=== PATIENT | female | born 2000 | race Caucasian/White ===

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

== ENCOUNTER 2019-04-17 00:34 | Emergency (ER) | payer OTHER ==
[2019-04-17 01:02] VITALS: O2SAT 99
--- NOTE | 2019-04-17 01:16 | ERPHSYRPT ---
- History of Present Illness Time Seen by Provider: 04/17/19 01:14 Exam Limitations: no limitations Patient Subjective Stated Complaint: pt states, "I woke up at 9pm tonight with rt sided abd pain and I can't get away from it". Triage Nursing Assessment: pt ambulated per self to rm 4 in ER. pt states, "i can't get over this". Rehana been having abd pain since 2100 tonight and it hurts so bad". Lungs clear, heart tones reg, abd soft with pain to rt lower side and up her ribcage. Lungs clear, heart tones reg, abd soft with active bs X4 quad, nontender. Allergies/Adverse Reactions: codeine Allergy (Verified 01/13/18 21:15) Home Medications: Cyclobenzaprine HCl 10 mg [Cyclobenzaprine 10 MG] 10 mg PO DAILY 04/17/19 [History] Venlafaxine HCl 37.5 mg [Effexor 37.5 mg] 37.5 mg pe PO DAILY 04/17/19 [ History] Hx Tetanus, Diphtheria Vaccination/Date Given: Yes Hx Influenza Vaccination/Date Given: No Hx Pneumococcal Vaccination/Date Given: No Immunizations Up to Date: Yes - Review of Systems Constitutional: No Symptoms Respiratory: No Symptoms Cardiac: No Symptoms Abdominal/Gastrointestinal: Abdominal Pain, Vomiting (1X on Wednesday night) Genitourinary Symptoms: No Symptoms All Other Systems: Reviewed and Negative - Past Medical History Pertinent Past Medical History: Yes Neurological History: No Pertinent History ENT History: No Pertinent History Cardiac History: No Pertinent History Respiratory History: Asthma Endocrine Medical History: No Pertinent History Musculoskeletal History: No Pertinent History GI Medical History: Gallbladder Disease History: No Pertinent History Psycho-Social History: No Pertinent History Female Reproductive Disorders: No Pertinent History Other Medical History: Notes history of popping her neck. - Past Surgical History Past Surgical History: Yes Neuro Surgical History: No Pertinent History Cardiac: No Pertinent History Respiratory: No Pertinent History Gastrointestinal: Cholecystectomy Genitourinary: No Pertinent History Musculoskeletal: No Pertinent History Female Surgical History: No Pertinent History - Social History Smoking Status: Current every day smoker How long have you smoked: 6 yrs Exposure to second hand smoke: Yes Drug Use: none Patient Lives Alone: No - Female History Hx Last Menstrual Period: Apr 05 Hx Now: No - Nursing Vital Signs Nursing Vital Signs: Initial Vital Signs Temperature 98.1 F 04/17/19 01:00 Pulse Rate 89 04/17/19 01:00 Respiratory Rate 17 04/17/19 01:00 Blood Pressure 134/91 04/17/19 01:00 O2 Sat by Pulse Oximetry 99 04/17/19 01:00 Pain Scale Pain Intensity 1 - Physical Exam General Appearance: no apparent distress Ears, Nose, Throat Exam: normal ENT inspection, pharynx normal Neck Exam: normal inspection, non-tender, supple Respiratory Exam: normal breath sounds, chest tenderness Cardiovascular Exam: regular rate/rhythm, normal heart sounds Gastrointestinal/Abdomen Exam: soft, normal bowel sounds, tenderness (RLQ to deep palpation), guarding Extremity Exam: normal inspection, normal range of motion Neurologic Exam: alert, oriented x 3, cooperative Skin Exam: normal color, warm, dry SpO2 Interpretation: normal SpO2: 99 O2 Delivery: Room Air - Course Nursing assessment & vital signs reviewed: Yes - CT Exams Abdomen/Pelvis CT Interpretation: Negative, Other (Normal appendix) Ordered Tests: Active Orders 24 hr Category Date Time Status ABDOMEN AND PELVIS W/0 CONTRAS [CT] Stat Exams 04/17/19 01:42 Taken CBC W DIFF Stat Lab 04/17/19 01:30 Completed CMP Stat Lab 04/17/19 01:30 Completed HCG,QUALITATIVE URINE Stat Lab 04/17/19 01:30 Completed UA W/RFX UR CULTURE Stat Lab 04/17/19 01:30 Completed Lab/Rad Data: Laboratory Result Diagrams 04/17/19 01:30 04/17/19 01:30 Laboratory Results 04/17/19 04/17/19 04/17/19 Range/Units 01:30 01:30 01:30 WBC (4.0-10.5) K/mm3 RBC (4.1-5.4) M/mm3 Hgb (12.0-16.0) gm/dl Hct (35-47) % MCV (78-100) fl MCH (26-32) pg MCHC (32-36) g/dl RDW (11.5-14.0) % Plt Count (150-450) K/mm3 MPV (6-9.5) fl Gran % (36.0-66.0) % Eos # (Auto) (0-0.5) Absolute Lymphs (auto) (1.0-4.6) Absolute Monos (auto) (0.0-1.3) Lymphocytes % (24.0-44.0) % Monocytes % (0.0-12.0) % Eosinophils % (0.00-5.0) % Basophils % (0.0-0.4) % Absolute Granulocytes (1.4-6.9) Basophils # (0-0.4) Sodium 140 (137-145) mmol/L Potassium 4.1 (3.5-5.1) mmol/L Chloride 105 (98-107) mmol/L Carbon Dioxide 24 (22-30) mmol/L Anion Gap 15.3 H (5-15) MEQ/L BUN 19 H (7-17) mg/dL Creatinine 0.81 (0.52-1.04) mg/dL Estimated GFR > 60.0 ML/MIN Glucose 91 (74-106) mg/dL Calcium 9.5 (8.4-10.2) mg/dL Total Bilirubin 0.70 (0.2-1.3) mg/dL AST 15 (14-36) U/L ALT 14 (0-35) U/L Alkaline Phosphatase 52 (38-126) U/L Serum Total Protein 7.3 (6.3-8.2) g/dL Albumin 4.3 (3.5-5.0) g/dL Urine Color YELLOW (YELLOW) Urine Appearance CLEAR (CLEAR) Urine pH 5.0 (5-6) Ur Specific [place] 1.018 (1.005-1.025) Urine Protein NEGATIVE (Negative) Urine Ketones NEGATIVE (NEGATIVE) Urine Blood LARGE (0-5) [place]/ul Urine Nitrite NEGATIVE (NEGATIVE) Urine Bilirubin NEGATIVE (NEGATIVE) Urine Urobilinogen NEGATIVE (0-1) mg/dL Ur Leukocyte Esterase NEGATIVE (NEGATIVE) Urine WBC (Auto) 0-2 (0-5) /HPF Urine RBC (Auto) 0-2 (0-2) /HPF U Epithel Cells (Auto) NONE (FEW) /HPF Urine Bacteria (Auto) NONE SEEN (NEGATIVE) /HPF Urine Mucus (Auto) SLIGHT (NEGATIVE) /HPF Urine Culture Reflexed NO (NO) Urine Glucose NEGATIVE (NEGATIVE) mg/dL Urine HCG, Qual NEGATIVE (Negative) 04/17/19 Range/Units 01:30 WBC 18.4 H (4.0-10.5) K/mm3 RBC 5.09 (4.1-5.4) M/mm3 Hgb 15.4 (12.0-16.0) gm/dl Hct 46.0 (35-47) % MCV 90.4 (78-100) fl MCH 30.3 (26-32) pg MCHC 33.5 (32-36) g/dl RDW 14.7 H (11.5-14.0) % Plt Count 352 (150-450) K/mm3 MPV 10.1 H (6-9.5) fl Gran % 61.3 (36.0-66.0) % Eos # (Auto) 0.25 (0-0.5) Absolute Lymphs (auto) 5.38 H (1.0-4.6) Absolute Monos (auto) 1.41 H (0.0-1.3) Lymphocytes % 29.3 (24.0-44.0) % Monocytes % 7.7 (0.0-12.0) % Eosinophils % 1.4 (0.00-5.0) % Basophils % 0.3 (0.0-0.4) % Absolute Granulocytes 11.26 H (1.4-6.9) Basophils # 0.05 (0-0.4) Sodium (137-145) mmol/L Potassium (3.5-5.1) mmol/L Chloride (98-107) mmol/L Carbon Dioxide (22-30) mmol/L Anion Gap (5-15) MEQ/L BUN (7-17) mg/dL Creatinine (0.52-1.04) mg/dL Estimated GFR ML/MIN Glucose (74-106) mg/dL Calcium (8.4-10.2) mg/dL Total Bilirubin (0.2-1.3) mg/dL AST (14-36) U/L ALT (0-35) U/L Alkaline Phosphatase (38-126) U/L Serum Total Protein (6.3-8.2) g/dL Albumin (3.5-5.0) g/dL Urine Color (YELLOW) Urine Appearance (CLEAR) Urine pH (5-6) Ur Specific [place] (1.005-1.025) Urine Protein (Negative) Urine Ketones (NEGATIVE) Urine Blood (0-5) [place]/ul Urine Nitrite (NEGATIVE) Urine Bilirubin (NEGATIVE) Urine Urobilinogen (0-1) mg/dL Ur Leukocyte Esterase (NEGATIVE) Urine WBC (Auto) (0-5) /HPF Urine RBC (Auto) (0-2) /HPF U Epithel Cells (Auto) (FEW) /HPF Urine Bacteria (Auto) (NEGATIVE) /HPF Urine Mucus (Auto) (NEGATIVE) /HPF Urine Culture Reflexed (NO) Urine Glucose (NEGATIVE) mg/dL Urine HCG, Qual (Negative) - Progress Progress Note: 04/17/19 03:25 Educated patient re negative findings on CT - not appendicitis. Patient wants to go home to her own bed - voices understanding and satisfaction. - Departure Departure Disposition: Home Clinical Impression: Abdominal pain Qualifiers: Abdominal location: right lower quadrant Qualified Code(s): R10.31 - Right lower quadrant pain Condition: Stable Critical Care Time: No Referrals: SUE SANDOVAL [Primary Care Provider] - Instructions: Acute Abdomen (Belly Pain), Adult (DC) Additional Instructions: Call primary care provider; let them know of your ER visit. Tell them that the Blood test showed a very high White Blood Cell count of 18,[address] showed a normal appendix.
[2019-04-17 01:33] LABS: Absolute Neutrophil Ct (ANC) 11.26 (1.4-6.9); BASOPHIL % 0.3 % (0.0-0.4); Basophil (Absolute #) 0.05 (0-0.4); Eosinophil % 1.4 % (0.00-5.0); Eosinophil (Absolute #) 0.25 (0-0.5); Hemoglobin 15.4 gm/dl (12.0-16.0); Lymphocyte (Absolute #) 5.38 (1.0-4.6); Lymphocytes % 29.3 % (24.0-44.0); Mean Cell Volume 90.4 fl (78-100); Mean Corpuscular Hemoglobin 30.3 pg (26-32); Mean Corpuscular Hgb Concent. 33.5 g/dl (32-36); Mean Platelet Volume 10.1 fl (6-9.5); Monocyte (Absolute #) 1.41 (0.0-1.3); Monocytes % 7.7 % (0.0-12.0); Neutrophil % 61.3 % (36.0-66.0); Platelet Count 352 K/mm3 (150-450); Red Blood Count 5.09 M/mm3 (4.1-5.4); Red Cell Distribution Width 14.7 % (11.5-14.0); White Blood Count 18.4 K/mm3 (4.0-10.5)
[2019-04-17 01:37] LABS: Appearance CLEAR (CLEAR); Bilirubin NEGATIVE (NEGATIVE); Blood LARGE Ery/ul (0-5); Glucose NEGATIVE (NEGATIVE); Ketones NEGATIVE (NEGATIVE); Leukocyte Esterase NEGATIVE (NEGATIVE); Mucus SLIGHT /HPF (NEGATIVE); Nitrite NEGATIVE (NEGATIVE); Protein,Urine Dip NEGATIVE (Negative); RBC 0-2 /HPF (0-2); Specific Gravity 1.018 (1.005-1.025); Urobilinogen NEGATIVE mg/dL (0-1); WBC 0-2 /HPF (0-5)
[2019-04-17 01:38] LABS: Bacteria NONE SEEN /HPF (NEGATIVE)
[2019-04-17 01:44] LABS: ALBUMIN 4.3 g/dL (3.5-5.0); ALKALINE PHOSPHATASE 52 U/L (38-126); ANION GAP 15.3 MEQ/L (5-15); BLOOD UREA NITROGEN 19 mg/dL (7-17); CHLORIDE 105 mmol/L (98-107); Calcium 9.5 mg/dL (8.4-10.2); Carbon Dioxide 24 mmol/L (22-30); Creatinine 1 0.81 mg/dL (0.52-1.04); Glucose 91 mg/dL (74-106); Potassium 4.1 mmol/L (3.5-5.1); SGOT/AST 15 U/L (14-36); SGPT/ALT 14 U/L (0-35); SODIUM 140 mmol/L (137-145); Total Protein 7.3 g/dL (6.3-8.2)
[2019-04-17 03:35] VITALS: BP 134/88; PULSE 102
--- NOTE | 2019-04-17 08:50 | XRAY ---
Indication: Right lower quadrant pain. Multiple contiguous axial images obtained through the abdomen and pelvis without contrast as ordered. Comparison: None Lung bases demonstrates minimal bibasilar dependent atelectasis. No infiltrate or effusion. Heart is not enlarged. Noncontrasted stomach and bowel loops appear nonobstructed. Normal appendix. Mild diffuse scattered colonic fecal debris throughout. Pancreatic body and tail demonstrates fatty replacement. Previous cholecystectomy. Uterus demonstrates IUD in situ. Urinary bladder demonstrates tiny intraluminal air bubbles either iatrogenic from recent catheterization versus gas-forming bacterial infection. No free fluid/air. Remaining liver, spleen, adrenal glands, kidneys, ureters, and aorta appear unremarkable for noncontrast exam. Osseous structures intact. Impression: 1. Urinary bladder intraluminal air bubbles either iatrogenic versus gas-forming bacterial infection. 2. Mild fecal stasis without obstruction. 3. Fatty-replaced pancreas. Comment: Preliminary interpretation was made by [facility]. No critical discrepancy. CT DI 19.47
== END 2019-04-17 03:32 | disposition home or self-care (01) ==
LOC: ED 00:34
DX: R10.31 Right lower quadrant pain (principal)
CPT/HCPCS: 36415; 74176; 80053; 81001; 84703; 85025; 99284

== ENCOUNTER 2019-05-05 19:59 | Emergency (ER) | payer OTHER ==
--- NOTE | 2019-05-05 20:43 | ERPHSYRPT ---
- History of Present Illness Time Seen by Provider: 05/05/19 20:38 Historian: patient Exam Limitations: no limitations Patient Subjective Stated Complaint: pt states she has had abdominal pain for a week. pt just had iud implanted and has been bleeding since then. pt rates pain as 8/10 Triage Nursing Assessment: pt is alert and oriented rated pain in abdomen as 8/ 10. distant bowel sounds heard in all 4 quadrants Physician History: pt states she has had abdominal pain for a week. patient just had IUD implanted and has been bleeding since then. patient rates pain as 8/10. denies any other symptoms Timing/Duration: week(s) (one week) Quality: cramping Abdominal Pain Onset Location: suprapubic, generalized abdomen Pain Radiation: no radiation Severity of Pain-Max: mild Severity of Pain-Current: mild Modifying Factors: Improves With: nothing Allergies/Adverse Reactions: codeine Allergy (Verified 05/05/19 20:28) Home Medications: Cyclobenzaprine HCl 10 mg [Cyclobenzaprine 10 MG] 10 mg PO DAILY 04/17/19 [History] Venlafaxine HCl 37.5 mg [Effexor 37.5 mg] 37.5 mg pe PO DAILY 04/17/19 [ History] Hx Tetanus, Diphtheria Vaccination/Date Given: Yes Hx Influenza Vaccination/Date Given: No Hx Pneumococcal Vaccination/Date Given: No Immunizations Up to Date: Yes - Review of Systems Constitutional: No Fever, No Chills Eyes: No Symptoms Ears, Nose, & Throat: No Symptoms Respiratory: No Cough, No Dyspnea Cardiac: No Chest Pain, No Edema, No Syncope Abdominal/Gastrointestinal: Abdominal Pain, No Nausea, No Vomiting, No Diarrhea Genitourinary Symptoms: Vaginal Bleeding, No Dysuria Musculoskeletal: No Back Pain, No Neck Pain Skin: No Rash Neurological: No Dizziness, No Focal Weakness, No Sensory Changes Psychological: No Symptoms Endocrine: No Symptoms All Other Systems: Reviewed and Negative - Past Medical History Pertinent Past Medical History: Yes Neurological History: No Pertinent History ENT History: No Pertinent History Cardiac History: No Pertinent History Respiratory History: Asthma Endocrine Medical History: No Pertinent History Musculoskeletal History: No Pertinent History GI Medical History: Gallbladder Disease History: No Pertinent History Psycho-Social History: Bipolar, Depression Female Reproductive Disorders: No Pertinent History Other Medical History: Notes history of popping her neck. - Past Surgical History Past Surgical History: Yes Neuro Surgical History: No Pertinent History Cardiac: No Pertinent History Respiratory: No Pertinent History Gastrointestinal: Cholecystectomy Genitourinary: No Pertinent History Musculoskeletal: No Pertinent History Female Surgical History: No Pertinent History Other Surgical History: iud implanted - Social History Smoking Status: Current every day smoker How long have you smoked: 6 years Exposure to second hand smoke: Yes Drug Use: marijuana Patient Lives Alone: No - Female History Hx Last Menstrual Period: iud Hx Now: (iud implanted 1 month ago) - Nursing Vital Signs Nursing Vital Signs: Initial Vital Signs Temperature 97.7 F 05/05/19 20:16 Pulse Rate 85 05/05/19 20:16 Respiratory Rate 16 05/05/19 20:16 Blood Pressure 140/92 05/05/19 20:16 O2 Sat by Pulse Oximetry 99 05/05/19 20:16 Pain Scale Pain Intensity 4 - Physical Exam General Appearance: no apparent distress, alert Eye Exam: PERRL/EOMI, eyes nml inspection Ears, Nose, Throat Exam: normal ENT inspection, pharynx normal, moist mucous membranes Neck Exam: normal inspection, non-tender, supple, full range of motion Respiratory Exam: normal breath sounds, lungs clear, No respiratory distress Cardiovascular Exam: regular rate/rhythm, normal heart sounds Gastrointestinal/Abdomen Exam: soft, No tenderness, No mass Back Exam: normal inspection, normal range of motion, No CVA tenderness, No vertebral tenderness Extremity Exam: normal inspection, normal range of motion, pelvis stable Neurologic Exam: alert, oriented x 3, cooperative, normal mood/affect, nml cerebellar function, sensation nml, No motor deficits Skin Exam: normal color, warm, dry SpO2: 99 - CT Exams Abdomen/Pelvis CT Interpretation: Tele-radiologist Report (no acute abnormality) Ordered Tests: Active Orders 24 hr Category Date Time Status ABDOMEN AND PELVIS W/0 CONTRAS [CT] Stat Exams 05/05/19 20:56 Taken AMYLASE Stat Lab 05/05/19 22:00 Completed CBC W DIFF Stat Lab 05/05/19 22:00 Completed CMP Stat Lab 05/05/19 22:00 Completed HCG QUALITATIVE,SERUM Stat Lab 05/05/19 22:00 Completed HCG, Quantitative (Inhouse) Stat Lab 05/05/19 22:00 Completed LIPASE Stat Lab 05/05/19 22:00 Completed Lactic Acid Stat Lab 05/05/19 21:25 Completed UA W/RFX UR CULTURE Stat Lab 05/05/19 22:30 Completed Medication Summary Discontinued Medications Generic Name Dose Route Start Last Admin Trade Name Beth PRN Reason Stop Dose Admin Fentanyl Citrate 50 mcg 05/05/19 20:55 05/05/19 21:11 Sublimaze 100 Mcg/2 Ml IV 05/05/19 20:56 50 mcg STAT ONE Administration Fentanyl Citrate Confirm 05/05/19 21:01 Sublimaze 100 Mcg/2 Ml Administered 05/05/19 21:02 Dose 100 mcg .ROUTE .STK-MED ONE Sodium Chloride 1,000 mls @ 999 mls/hr 05/05/19 20:55 05/05/19 21:09 Sodium Chloride 0.9% 1000 Ml IV 05/05/19 21:55 999 mls/hr .Q1H1M STA Administration Sodium Chloride Confirm 05/05/19 21:02 Sodium Chloride 0.9% 1000 Ml Administered 05/05/19 21:03 Dose 1,000 mls @ ud .ROUTE .STK-MED ONE Ceftriaxone Sodium/Dextrose 1 g in 50 mls @ 100 mls/hr 05/05/19 22:53 23:00 Rocephin 1 Gm-D5w 50 Ml Bag IV 05/05/19 23:22 100 ml/hr STAT STA 100 mls/hr Administration Ceftriaxone Sodium/Dextrose Confirm 05/05/19 22:58 Rocephin 1 Gm-D5w 50 Ml Bag Administered 05/05/19 22:59 Dose 1 g in 50 mls @ ud IV .STK-MED ONE Lab/Rad Data: Laboratory Result Diagrams 05/05/19 22:00 05/05/19 22:00 Laboratory Results 05/05/19 05/05/19 05/05/19 Range/Units 22:30 22:00 22:00 WBC (4.0-10.5) K/mm3 RBC (4.1-5.4) M/mm3 Hgb (12.0-16.0) gm/dl Hct (35-47) % MCV (78-100) fl MCH (26-32) pg MCHC (32-36) g/dl RDW (11.5-14.0) % Plt Count (150-450) K/mm3 MPV (6-9.5) fl Gran % (36.0-66.0) % Eos # (Auto) (0-0.5) Absolute Lymphs (auto) (1.0-4.6) Absolute Monos (auto) (0.0-1.3) Lymphocytes % (24.0-44.0) % Monocytes % (0.0-12.0) % Eosinophils % (0.00-5.0) % Basophils % (0.0-0.4) % Absolute Granulocytes (1.4-6.9) Basophils # (0-0.4) Sodium 140 (137-145) mmol/L Potassium 3.7 (3.5-5.1) mmol/L Chloride 107 (98-107) mmol/L Carbon Dioxide 26 (22-30) mmol/L Anion Gap 11.3 (5-15) MEQ/L BUN 11 (7-17) mg/dL Creatinine 0.54 (0.52-1.04) mg/dL Estimated GFR > 60.0 ML/MIN Glucose 89 (74-106) mg/dL Lactic Acid (0.4-2.0) Calcium 9.0 (8.4-10.2) mg/dL Total Bilirubin 0.50 (0.2-1.3) mg/dL AST 21 (14-36) U/L ALT 15 (0-35) U/L Alkaline Phosphatase 53 (38-126) U/L Serum Total Protein 6.8 (6.3-8.2) g/dL Albumin 4.0 (3.5-5.0) g/dL Amylase 97 (30-110) U/L Lipase 465 H (23-300) U/L Beta HCG, Quant < 2.39 mIU/ml Serum , Qual NEGATIVE (Negative) Urine Color YELLOW (YELLOW) Urine Appearance SLIGHTLY CLOUDY (CLEAR) Urine pH 8.0 (5-6) Ur Specific [place] 1.025 (1.005-1.025) Urine Protein 30 (Negative) Urine Ketones NEGATIVE (NEGATIVE) Urine Blood MODERATE (0-5) Denilson/ul Urine Nitrite NEGATIVE (NEGATIVE) Urine Bilirubin NEGATIVE (NEGATIVE) Urine Urobilinogen 4 (0-1) mg/dL Ur Leukocyte Esterase SMALL (NEGATIVE) Urine WBC (Auto) 3-5 (0-5) /HPF Urine RBC (Auto) 11-15 (0-2) /HPF U Epithel Cells (Auto) RARE (FEW) /HPF Urine Bacteria (Auto) NONE (NEGATIVE) /HPF Urine Mucus (Auto) SLIGHT (NEGATIVE) /HPF Urine Culture Reflexed NO (NO) Urine Glucose NEGATIVE (NEGATIVE) mg/dL Slides for Path Review 05/05/19 05/05/19 Range/Units 22:00 21:25 WBC 15.6 H (4.0-10.5) K/mm3 RBC 4.91 (4.1-5.4) M/mm3 Hgb 14.8 (12.0-16.0) gm/dl Hct 44.8 (35-47) % MCV 91.2 (78-100) fl MCH 30.1 (26-32) pg MCHC 33.0 (32-36) g/dl RDW 14.2 H (11.5-14.0) % Plt Count 376 (150-450) K/mm3 MPV 10.2 H (6-9.5) fl Gran % 46.6 (36.0-66.0) % Eos # (Auto) 0.31 (0-0.5) Absolute Lymphs (auto) 6.85 H (1.0-4.6) Absolute Monos (auto) 1.11 (0.0-1.3) Lymphocytes % 43.9 (24.0-44.0) % Monocytes % 7.1 (0.0-12.0) % Eosinophils % 2.0 (0.00-5.0) % Basophils % 0.4 (0.0-0.4) % Absolute Granulocytes 7.25 H (1.4-6.9) Basophils # 0.07 (0-0.4) Sodium (137-145) mmol/L Potassium (3.5-5.1) mmol/L Chloride (98-107) mmol/L Carbon Dioxide (22-30) mmol/L Anion Gap (5-15) MEQ/L BUN (7-17) mg/dL Creatinine (0.52-1.04) mg/dL Estimated GFR ML/MIN Glucose (74-106) mg/dL Lactic Acid 1.5 (0.4-2.0) Calcium (8.4-10.2) mg/dL Total Bilirubin (0.2-1.3) mg/dL AST (14-36) U/L ALT (0-35) U/L Alkaline Phosphatase (38-126) U/L Serum Total Protein (6.3-8.2) g/dL Albumin (3.5-5.0) g/dL Amylase (30-110) U/L Lipase (23-300) U/L Beta HCG, Quant mIU/ml Serum , Qual (Negative) Urine Color (YELLOW) Urine Appearance (CLEAR) Urine pH (5-6) Ur Specific [place] (1.005-1.025) Urine Protein (Negative) Urine Ketones (NEGATIVE) Urine Blood (0-5) Denilson/ul Urine Nitrite (NEGATIVE) Urine Bilirubin (NEGATIVE) Urine Urobilinogen (0-1) mg/dL Ur Leukocyte Esterase (NEGATIVE) Urine WBC (Auto) (0-5) /HPF Urine RBC (Auto) (0-2) /HPF U Epithel Cells (Auto) (FEW) /HPF Urine Bacteria (Auto) (NEGATIVE) /HPF Urine Mucus (Auto) (NEGATIVE) /HPF Urine Culture Reflexed (NO) Urine Glucose (NEGATIVE) mg/dL Slides for Path Review YES - Progress Progress: improved Counseled pt/family regarding: drug and/or alcohol abuse, lab results, diagnosis , need for follow-up, rad results, smoking cessation - Departure Departure Disposition: Home Clinical Impression: Pelvic inflammatory disease (PID) Condition: Stable Critical Care Time: No Referrals: SUE SANDOVAL [Primary Care Provider] - Instructions: Pelvic Inflammatory Disease (DC), Acute Abdomen (Belly Pain) Additional Instructions: Please consider removal of IUD. contact your primary care physician. BEHRANE CALABRESE was seen on 05/06/19 n the Emergency Room. At that time you were treated for an emergent condition, during your visit Laboratory, Radiology and/or other procedures may have been ordered. It is very important that you follow-up with your Primary Care Physician SUE SANDOVAL within the next 24-48 hours to review your Emergency Room visit and the final results of testing that was ordered. Some test results such as Urine Cultures, Blood Cultures, and other cultures if ordered will not be finalized for 24-48 hours. If you do not have a Primary Care Provider please call the medical records department at [phone] ext [phone] to obtain a copy of your results or you may sign into our patient portal to obtain these results by visiting us @ [email or web address] and completing the following steps: 1. Click on the Patient Portal link 2. Click the Patient Self Enrollment Link to complete the enrollment form and entering your 3. Once the enrollment form is completed you will receive an email with a temporary ID and password at the email address you provided. 4. Next choose a user name and password. Your user name must be at least 4 characters long and your password must be at least 4 characters long. 5. Choose a security question from the list and provide your answer to the question. If you already have signed into the Health Portal you may access your Health Care Information 01/02 by the following steps: 1. Login to our website @ [email or web address] 2. Enter your original user name and password. FAQS The [facility] Health Portal is an online tool that contains your Lab Results, Radiology Reports, Visit History, Discharge Instructions and Health Summary Lab and Radiology Results will not be available for 72 hours on the portal. The Portal is a secure site, passwords are encryted and URLs are re-written so they cannot be copied and pasted. You and authorized family members are the only ones who can access your Portal. Also there is a timeout feature that protects your information if you leave the Portal page open. If you have technical difficulty please use the Contact Us link on the page this will allow you to submit any questions you have regarding the Portal or you may contact the Medical Record Department at [phone]. Discharge/Care Plan BERHANE CALABRESE was seen on 05/06/19 in the Emergency Room. The patient was counseled regarding Diagnosis,Lab results, Imaging studies, need for follow up and when to return to the Emergency Room. Prescriptions given: Discharge Note I have spoken with the patient and/or caregivers. I have explained the patient' s condition, diagnosis and treatment plan based on the information available to me at this time. I have answered the patient's and/or caregiver's questions and addressed any concerns. The patient and/or caregivers have as good understanding of the patient's diagnosis, condition and treatment plan as can be expected at this point. The vital signs have been stable. The patient's condition is stable and appropriate for discharge from the emergency department. The patient will pursue further outpatient evaluation with the primary care physician or other designated or consulting physician as outlined in the discharge instructions. The patient and/or caregivers are agreeable to this plan of care and follow-up instructions have been explained in detail. The patient and/or caregivers have received these instruction. The patient/and or caregivers are aware that any significant change in condition or worsening of symptoms should prompt an immediate return to this or the closest emergency department or call 911. Prescriptions: Ciprofloxacin [Cipro 500 MG] 500 mg PO BIDAC #20 tablet Metronidazole 500 mg [Flagyl 500 MG] 500 mg PO TID #21 tablet
[2019-05-05] MEDS ORDERED: SUBLIMAZE 100 MCG/2 ML IV ONE (20:55)
[2019-05-05] MEDS ORDERED: Sodium Chloride 0.9% 1000 ML 1,000 ML IV STA (20:55)
[2019-05-05] MEDS ORDERED: SUBLIMAZE 100 MCG/2 ML ONE (21:01)
[2019-05-05] MEDS ORDERED: Sodium Chloride 0.9% 1000 ML 1,000 ML ONE (21:02)
[2019-05-05 22:12] LABS: Absolute Neutrophil Ct (ANC) 7.25 (1.4-6.9); BASOPHIL % 0.4 % (0.0-0.4); Basophil (Absolute #) 0.07 (0-0.4); Eosinophil (Absolute #) 0.31 (0-0.5); Hematocrit 44.8 % (35-47); Hemoglobin 14.8 gm/dl (12.0-16.0); Lymphocyte (Absolute #) 6.85 (1.0-4.6); Lymphocytes % 43.9 % (24.0-44.0); Mean Cell Volume 91.2 fl (78-100); Mean Corpuscular Hemoglobin 30.1 pg (26-32); Mean Platelet Volume 10.2 fl (6-9.5); Monocyte (Absolute #) 1.11 (0.0-1.3); Monocytes % 7.1 % (0.0-12.0); Neutrophil % 46.6 % (36.0-66.0); Platelet Count 376 K/mm3 (150-450); Red Blood Count 4.91 M/mm3 (4.1-5.4); Red Cell Distribution Width 14.2 % (11.5-14.0); White Blood Count 15.6 K/mm3 (4.0-10.5)
[2019-05-05 22:21] VITALS: BP 125/67
[2019-05-05 22:43] LABS: Appearance SLIGHTLY CLOUDY (CLEAR); Bilirubin NEGATIVE (NEGATIVE); Blood MODERATE Ery/ul (0-5); Epithelial Cells RARE /HPF (FEW); Glucose NEGATIVE (NEGATIVE); Ketones NEGATIVE (NEGATIVE); Mucus SLIGHT /HPF (NEGATIVE); Nitrite NEGATIVE (NEGATIVE); Protein,Urine Dip 30 (Negative); Specific Gravity 1.025 (1.005-1.025); Urobilinogen 4 mg/dL (0-1)
[2019-05-05 22:45] LABS: Leukocyte Esterase SMALL (NEGATIVE)
[2019-05-05 22:45] LABS: ALKALINE PHOSPHATASE 53 U/L (38-126); AMYLASE 97 U/L (30-110); ANION GAP 11.3 MEQ/L (5-15); BLOOD UREA NITROGEN 11 mg/dL (7-17); CHLORIDE 107 mmol/L (98-107); Carbon Dioxide 26 mmol/L (22-30); Creatinine 1 0.54 mg/dL (0.52-1.04); Glucose 89 mg/dL (74-106); HCG, Quantitative (Inhouse) < 2.39 mIU/ml; LIPASE 465 U/L (23-300); Potassium 3.7 mmol/L (3.5-5.1); SGOT/AST 21 U/L (14-36); SGPT/ALT 15 U/L (0-35); SODIUM 140 mmol/L (137-145); Total Protein 6.8 g/dL (6.3-8.2)
[2019-05-05] MEDS ORDERED: ROCEPHIN 1 Gm-D5w 50 ml Bag** 1 G/50 ML IVPB IV STA (22:53)
[2019-05-05] MEDS ORDERED: ROCEPHIN 1 Gm-D5w 50 ml Bag** 1 G/50 ML IVPB IV ONE (22:58)
[2019-05-05 23:02] VITALS: PULSE 77; O2SAT 99
[2019-05-05 23:04] LABS: Slide Review 1 YES
--- NOTE | 2019-05-06 07:58 | XRAY ---
Indication: Left flank and lower abdomen pain. Multiple contiguous axial images obtained through the abdomen and pelvis without contrast as ordered. Comparison: April 17, 2019. Lung bases again demonstrates minimal bibasilar dependent atelectasis without infiltrate or effusion. Heart is not enlarged. Stomach is now distended with food/fluid. Noncontrasted stomach and bowel loops remain nonobstructed. Normal appendix. Again mild diffuse scattered colonic fecal debris throughout. No free fluid/air. Stable fatty replaced pancreas, cholecystectomy clips, and uterine IUD. Remaining liver, pancreas, spleen, adrenal glands, kidneys, ureters, bladder, and aorta appear unremarkable for noncontrast exam. Impression: 1. Again diffuse fecal stasis without obstruction. 2. Stable fatty-replaced pancreas. 3. No new or acute intra-abdominal/pelvic abnormalities on this noncontrast exam. Comment: Preliminary interpretation was made by [facility]. No critical discrepancy. CTDI 18.57
== END 2019-05-06 00:23 | disposition home or self-care (01) ==
LOC: ED 19:59
DX: N73.9 Female pelvic inflammatory disease, unspecified (principal); R10.9 Unspecified abdominal pain
CPT/HCPCS: 36415; 74176; 80053; 81001; 81025; 82150; 83605; 83690; 84702; 85025; 96365; 96374; 99284; J0696; J3010

== ENCOUNTER 2019-07-23 15:37 | Emergency (ER) | payer OTHER ==
--- NOTE | 2019-07-23 15:44 | ERPHSYRPT ---
- History of Present Illness Time Seen by Provider: 07/23/19 15:44 Source: patient Exam Limitations: no limitations Physician History: the patient is a 19-year-old female with a past history significant for anxiety and being bipolar presents with a chief complaint of vaginal bleeding. Onset reportedly was last week. She endorses having a large amount of vaginal bleeding on 21 July in which she had to go to multiple pads and tampons. Since that time, the bleeding hasn't slowed down however she states that she's had these 3 pads and 3 tampons a day to control her bleeding. She denies taking anticoagulants, blood dyscrasia, and being . Endorse having suprapubic cramping abdominal pain in addition to her bleeding along with back pain. She denies nausea, vomiting, dizziness, syncope, diarrhea and constipation. She's not on control and she reported had an IUD removed this past fall. She's not scheduled appointment to be seen by her assembled wood products repairer for this bleeding. She is afraid she may be and suffering a miscarriage. Timing/Duration: today Allergies/Adverse Reactions: codeine Allergy (Verified 07/23/19 15:51) Home Medications: Venlafaxine HCl [Venlafaxine HCl ER] 225 mg DAILY 07/23/19 [History] Hx Tetanus, Diphtheria Vaccination/Date Given: Yes Hx Influenza Vaccination/Date Given: No Hx Pneumococcal Vaccination/Date Given: No - Review of Systems Constitutional: No Fever, No Chills Respiratory: No Cough Abdominal/Gastrointestinal: Abdominal Pain, No Nausea, No Vomiting Genitourinary Symptoms: Vaginal Bleeding, No Dysuria, No Frequency, No Hematuria , No Hesitancy, No Incontinence Musculoskeletal: Back Pain Skin: No Symptoms Neurological: No Symptoms Psychological: No Symptoms (and) Endocrine: No Symptoms Hematologic/Lymphatic: No Symptoms (in our) - Past Medical History Pertinent Past Medical History: Yes Neurological History: No Pertinent History ENT History: No Pertinent History Cardiac History: No Pertinent History Respiratory History: Asthma, Bronchitis Endocrine Medical History: No Pertinent History Musculoskeletal History: Other GI Medical History: Gallbladder Disease History: No Pertinent History Psycho-Social History: Bipolar, Depression Female Reproductive Disorders: No Pertinent History Other Medical History: BIPOLAR DEPRESSION. PATIENT STATES ASTHMA AND BRONCHITIS WERE A CHILD. - Past Surgical History Past Surgical History: Yes Neuro Surgical History: No Pertinent History Cardiac: No Pertinent History Respiratory: No Pertinent History Gastrointestinal: Cholecystectomy Genitourinary: No Pertinent History Musculoskeletal: No Pertinent History Female Surgical History: No Pertinent History Other Surgical History: iud implanted - Social History Smoking Status: Current every day smoker How long have you smoked: 6 years Exposure to second hand smoke: Yes Drug Use: marijuana Patient Lives Alone: No - Nursing Vital Signs Nursing Vital Signs: Initial Vital Signs Temperature 98.0 F 07/23/19 15:46 Pulse Rate 98 H 07/23/19 15:46 Respiratory Rate 16 07/23/19 15:46 Blood Pressure 137/81 07/23/19 15:46 O2 Sat by Pulse Oximetry 96 07/23/19 15:46 Pain Scale Pain Intensity 2 - Physical Exam General Appearance: no apparent distress, alert Eye Exam: PERRL/EOMI, No photophobia Ears, Nose, Throat Exam: normal ENT inspection Neck Exam: normal inspection Respiratory Exam: normal breath sounds, lungs clear, airway intact, No chest tenderness, No respiratory distress Cardiovascular Exam: regular rate/rhythm, normal heart sounds, normal peripheral pulses, capillary refill <2 sec, No murmur, No friction rub, No gallop, No tachycardia Gastrointestinal/Abdomen Exam: soft, tenderness (Suprapubic tenderness) Pelvic Exam: other (minor amount of dark vaginal blood in the vaginal valut with no brisk vaginal bleeding. No lesions noted. No evidence of retained foreign body or mass), No vaginal discharge Rectal Exam: deferred Back Exam: normal inspection Extremity Exam: normal inspection Neurologic Exam: alert, oriented x 3, cooperative Skin Exam: normal color, warm, dry, No rash, No petechiae, No jaundice, No abrasion, No cyanosis O2 Delivery: Room Air - Course Nursing assessment & vital signs reviewed: Yes Ordered Tests: Active Orders 24 hr Category Date Time Status Pelvic Exam Assist STAT Care 07/23/19 16:01 Active CBC W DIFF Stat Lab 07/23/19 16:00 Completed HCG,QUALITATIVE URINE Stat Lab 07/23/19 16:09 Completed Lab/Rad Data: Laboratory Result Diagrams 07/23/19 16:00 Laboratory Results 07/23/19 07/23/19 Range/Units 16:09 16:00 WBC 11.2 H (4.0-10.5) K/mm3 RBC 4.60 (4.1-5.4) M/mm3 Hgb 14.1 (12.0-16.0) gm/dl Hct 41.9 (35-47) % MCV 91.1 (78-100) fl MCH 30.7 (26-32) pg MCHC 33.7 (32-36) g/dl RDW 13.8 (11.5-14.0) % Plt Count 313 (150-450) K/mm3 MPV 9.9 (7.5-11.0) fl Gran % 60.3 (36.0-66.0) % Eos # (Auto) 0.12 (0-0.5) Absolute Lymphs (auto) 3.61 (1.0-4.6) Absolute Monos (auto) 0.68 (0.0-1.3) Lymphocytes % 32.3 (24.0-44.0) % Monocytes % 6.1 (0.0-12.0) % Eosinophils % 1.1 (0.00-5.0) % Basophils % 0.2 (0.0-0.4) % Absolute Granulocytes 6.75 (1.4-6.9) Basophils # 0.02 (0-0.4) Urine HCG, Qual NEGATIVE (Negative) - Progress Progress: unchanged Counseled pt/family regarding: lab results, diagnosis, need for follow-up - Departure Departure Disposition: Home Clinical Impression: Vaginal bleeding Condition: Stable Critical Care Time: No Referrals: SUE SANDOVAL [Primary Care Provider] - Instructions: Heavy Periods (DC) Additional Instructions: Please take Tylenol and or ibuprofen as needed for any pain. He did purchase these medications [id number]. Please see these medications as instructed on the bottle. Please contact your assembled wood products repairer tomorrow morning to schedule an appointment to be seen within a week. Please return if her bleeding becomes worse or appear to experience lightheadedness or dizziness in the context of her bleeding. Plan of Treatment: Nontoxic in appearance. The patient was hemodynamically stable in the ED despite her report of copious amount of bleeding. Hbg reassuring and well above the transfusion threshold. No brisk bleeding noted on pelvic exam. UPT negative. ? menstrual cycle as the source of the patient's bleeding and pain. Ultimately she was discharge home to f/u with her sewing machine adjuster as an outpatient and instructed to return to the ED if her bleeding became worse or if she were to develop lightheadness or syncope in conjuction with ongoing vaginal bleeding.
[2019-07-23 15:51] VITALS: BP 137/81; PULSE 98; O2SAT 96
[2019-07-23 16:19] LABS: Absolute Neutrophil Ct (ANC) 6.75 (1.4-6.9); BASOPHIL % 0.2 % (0.0-0.4); Basophil (Absolute #) 0.02 (0-0.4); Eosinophil % 1.1 % (0.00-5.0); Eosinophil (Absolute #) 0.12 (0-0.5); Hematocrit 41.9 % (35-47); Hemoglobin 14.1 gm/dl (12.0-16.0); Lymphocyte (Absolute #) 3.61 (1.0-4.6); Lymphocytes % 32.3 % (24.0-44.0); Mean Cell Volume 91.1 fl (78-100); Mean Corpuscular Hemoglobin 30.7 pg (26-32); Mean Corpuscular Hgb Concent. 33.7 g/dl (32-36); Mean Platelet Volume 9.9 fl (7.5-11.0); Monocyte (Absolute #) 0.68 (0.0-1.3); Monocytes % 6.1 % (0.0-12.0); Neutrophil % 60.3 % (36.0-66.0); Platelet Count 313 K/mm3 (150-450); Red Cell Distribution Width 13.8 % (11.5-14.0); White Blood Count 11.2 K/mm3 (4.0-10.5)
== END 2019-07-23 17:17 | disposition home or self-care (01) ==
LOC: ED 15:37
DX: N93.9 Abnormal uterine and vaginal bleeding, unspecified (principal); F41.9 Anxiety disorder, unspecified; F31.9 Bipolar disorder, unspecified
CPT/HCPCS: 36415; 84703; 85025; 99283

== ENCOUNTER 2020-06-29 21:38 | Emergency (ER) | payer OTHER ==
[2020-06-29 22:10] VITALS: O2SAT 98
[2020-06-29] MEDS ORDERED: DELTASONE 20 MG PO ONE (22:17)
[2020-06-29] MEDS ORDERED: Augmentin 875-125 Tablet PO ONE (22:17)
[2020-06-29] MEDS ORDERED: Augmentin 875-125 Tablet ONE (22:23)
[2020-06-29] MEDS ORDERED: DELTASONE 20 MG ONE (22:23)
--- NOTE | 2020-06-29 22:38 | ERPHSYRPT ---
- History of Present Illness Time Seen by Provider: 06/29/20 21:47 Source: patient Exam Limitations: no limitations Patient Subjective Stated Complaint: pt states she has had sore throat since yesterday and is having some difficulty swallowing today. states she did start v aping yesterday Triage Nursing Assessment: pt alert and oriented, answers questions approp. respirations nonlabored with lungs cta. skin warm and dry. tonsils enlarged. no redness noted to ears. Physician History: 20 years old female with history of recurrent tonsillitis presented in the ER with chief complaint of worsening sore throat and swollen tonsils causing difficulty swallowing since yesterday. Patient reports symptoms started after she did some vaping. Gradually worsening associated with dull aching to sharp pain which gets worse with swallowing. Denies any difficulty breathing. She noticed white patches on the back of her throat. No fever or chills. Denies any sick contact. Timing/Duration: abrupt onset, yesterday Severity: moderate ENT Location: throat Prearrival Treatment: over the counter meds Associated Symptoms: poor solids intake, swollen glands, difficulty swallowing Allergies/Adverse Reactions: codeine Allergy (Verified 06/29/20 21:54) Home Medications: Venlafaxine HCl [Venlafaxine HCl ER] 225 mg PO DAILY 07/23/19 [History] Hx Tetanus, Diphtheria Vaccination/Date Given: Yes Hx Influenza Vaccination/Date Given: Yes Hx Pneumococcal Vaccination/Date Given: No Immunizations Up to Date: Yes Travel Risk - International Travel Have you traveled outside of the country in past 3 weeks: No - Coronavirus Screening Are you exhibiting any of the following symptoms?: No Close contact with a COVID-19 positive Pt in past 14-21 Days: No - Review of Systems Constitutional: No Symptoms Eyes: No Symptoms Ears, Nose, & Throat: Painful Swallowing Respiratory: No Symptoms Cardiac: No Symptoms Abdominal/Gastrointestinal: No Symptoms Genitourinary Symptoms: No Symptoms Musculoskeletal: No Symptoms Skin: No Symptoms Neurological: No Symptoms Psychological: No Symptoms Endocrine: No Symptoms Hematologic/Lymphatic: No Symptoms Immunological/Allergic: No Symptoms - Past Medical History Pertinent Past Medical History: Yes Neurological History: No Pertinent History ENT History: No Pertinent History Cardiac History: No Pertinent History Respiratory History: Asthma, Bronchitis Endocrine Medical History: No Pertinent History Musculoskeletal History: Other GI Medical History: Gallbladder Disease History: No Pertinent History Psycho-Social History: Bipolar, Depression Female Reproductive Disorders: No Pertinent History Other Medical History: BIPOLAR DEPRESSION, personality disorder. PATIENT STATES ASTHMA AND BRONCHITIS WERE A CHILD. - Past Surgical History Past Surgical History: Yes Neuro Surgical History: No Pertinent History Cardiac: No Pertinent History Respiratory: No Pertinent History Gastrointestinal: Cholecystectomy Genitourinary: No Pertinent History Musculoskeletal: No Pertinent History Female Surgical History: No Pertinent History Other Surgical History: wisdom teeth 2 weeks ago - Social History Smoking Status: Current every day smoker How long have you smoked: 6 years Exposure to second hand smoke: Yes Drug Use: none Patient Lives Alone: No - Female History Hx Last Menstrual Period: implanon Hx Now: No - Nursing Vital Signs Nursing Vital Signs: Initial Vital Signs Temperature 96.8 F 06/29/20 21:45 Pulse Rate 117 H 06/29/20 21:45 Respiratory Rate 18 06/29/20 21:45 Blood Pressure 142/93 06/29/20 21:45 O2 Sat by Pulse Oximetry 98 06/29/20 21:45 Pain Scale Pain Intensity 4 - Physical Exam General Appearance: no apparent distress, alert Eye Exam: bilateral eye: normal inspection, PERRL, EOMI Ear Exam: bilateral ear: auricle normal, canal normal, TM normal Nasal Exam: normal inspection Throat Exam: pharynx swelling, tonsillar exudate, tonsillar swelling, uvula swelling Neck Exam: normal inspection, non-tender, supple, full range of motion, lymphadenopathy (R), lymphadenopathy (L) Cardiovascular/Respiratory Exam: chest non-tender, normal breath sounds, regular rate/rhythm Neurologic Exam: alert, oriented x 3, cooperative Skin Exam: normal color SpO2 Interpretation: normal SpO2: 98 O2 Delivery: Room Air Ordered Tests: Medication Summary Discontinued Medications Generic Name Dose Route Start Last Admin Trade Name Freq PRN Reason Stop Dose Admin Amoxicillin/Clavulanate Potassium 875 mg 06/29/20 22:17 06/29/20 22:28 Augmentin 875-125 Tablet PO 06/29/20 22:18 875 mg STAT ONE Administration Amoxicillin/Clavulanate Potassium Confirm 06/29/20 22:23 Augmentin 875-125 Tablet Administered 06/29/20 22:24 Dose 875 mg .ROUTE .STK-MED ONE Prednisone 60 mg 06/29/20 22:17 06/29/20 22:29 Deltasone 20 Mg PO 06/29/20 22:18 60 mg STAT ONE Administration Prednisone Confirm 06/29/20 22:23 Deltasone 20 Mg Administered 06/29/20 22:24 Dose 60 mg .ROUTE .STK-MED ONE - Progress Progress: unchanged Progress Note: 06/29/20 22:38 Patient has bilateral enlarged tonsils with exudates. Tonsils are large enough getting closer to midline. I have given her steroids and started on Augmentin. Recommended outpatient follow-up with primary care and ENT for further evaluation and may need tonsillectomy. Counseled pt/family regarding: lab results, diagnosis, need for follow-up - Departure Departure Disposition: Home Clinical Impression: Acute tonsillitis Qualifiers: Pharyngitis/tonsillitis etiology: other specified organisms Qualified Code(s): J03.80 - Acute tonsillitis due to other specified organisms; J03.8 - Acute tonsillitis due to other specified organisms Condition: Stable Critical Care Time: No Referrals: TESSA RAMOS MD [Primary Care Provider] - Follow Up with PCP/3 days JEREMY ALBERTO [NON-STAFF PHY W/O PRIVILEGES] - (Call in 2 days for appointment) Instructions: Strep Throat (DC) Additional Instructions: Take Tylenol/ibuprofen as needed for pain. Do warm salt water gargles. Follow- up with primary care and ENT for further evaluation. Return to ER for increasing swelling difficulty swallowing or breathing or if develop fever chills/difficulty movements of neck. Prescriptions: Amox Tr/Potass Clav. 875 mg [Augmentin 875-125 Tablet] 875 mg PO BID #20 tablet Prednisone 20 mg [Deltasone 20 mg] 60 mg PO DAILY 5 Days #15 tablet
[2020-06-29 23:26] VITALS: PULSE 76
[2020-06-29 23:28] VITALS: BP 134/78
== END 2020-06-29 23:23 | disposition home or self-care (01) ==
LOC: ED 21:38
DX: J03.80 Acute tonsillitis due to other specified organisms (principal)
CPT/HCPCS: 87651; 99283; A9270-GY

== ENCOUNTER 2022-06-22 11:49 | Emergency (ER) | payer OTHER ==
[2022-06-22 12:59] LABS: Absolute Neutrophil Ct (ANC) 5.58 x10^3/uL (1.4-6.9); Basophil (Absolute #) 0.09 x10^3/uL (0-0.4); Eosinophil % 0.9 % (0.00-5.0); Hematocrit 43.2 % (35-47); Hemoglobin 14.3 g/dL (12.0-16.0); Lymphocyte (Absolute #) 4.72 x10^3/uL (1.0-4.6); Lymphocytes % 42.3 % (24.0-44.0); Mean Cell Volume 90.6 fL (78-100); Mean Corpuscular Hgb Concent. 33.1 g/dL (32-36); Mean Platelet Volume 9.5 fL (7.5-11.0); Monocyte (Absolute #) 0.65 x10^3/uL (0.0-1.3); Monocytes % 5.8 % (0.0-12.0); Neutrophil % 49.9 % (36.0-66.0); Platelet Count 341 x10^3/uL (150-450); Red Blood Count 4.77 x10^6/uL (4.1-5.4); Red Cell Distribution Width 13.9 % (11.5-14.0); White Blood Count 11.2 x10^3/uL (4.0-10.5)
[2022-06-22 13:07] LABS: Appearance CLOUDY (CLEAR); Bilirubin NEGATIVE (NEGATIVE); Glucose NEGATIVE (NEGATIVE); Ketones NEGATIVE (NEGATIVE); Ph 8.5 (5-6); Protein,Urine Dip 30 (Negative); RBC LARGE Ery/ul (0-5)
[2022-06-22 13:08] LABS: Dipstick done @ ? MAIN LAB; Nitrite NEGATIVE (NEGATIVE); Urobilinogen 2 mg/dL (0-1)
[2022-06-22 13:09] LABS: Amourphous Crystal MODERATE /HPF (NEGATIVE); Bacteria FEW /HPF (NEGATIVE); Epithelial Cells MODERATE /HPF (FEW); Mucus SLIGHT /HPF (NEGATIVE)
[2022-06-22 13:19] LABS: Urine Cultured Indicated? YES
[2022-06-22 13:29] LABS: ALBUMIN 4.1 g/dL (3.5-5.0); ALKALINE PHOSPHATASE 48 U/L (38-126); ANION GAP 10.8 MEQ/L (5-15); BLOOD UREA NITROGEN 9 mg/dL (7-17); CHLORIDE 108 mmol/L (98-107); Calcium 8.5 mg/dL (8.4-10.2); Carbon Dioxide 23 mmol/L (22-30); Creatinine 1 0.74 mg/dL (0.52-1.04); EST GLOMERULAR FILTRATION RATE > 60.0 ML/MIN; Glucose 87 mg/dL (74-106); HCG, Quantitative (Inhouse) < 2.39 mIU/ml; Potassium 3.4 mmol/L (3.5-5.1); SGOT/AST 24 U/L (14-36); SGPT/ALT 23 U/L (0-35); SODIUM 138 mmol/L (137-145); Total Protein 6.9 g/dL (6.3-8.2)
[2022-06-22 14:07] LABS: Bacteria Moderate; Clue Cells None Seen; Red Blood Cells Many; Trichomonas None Seen; White Blood Cells Few; Yeast None Seen
--- NOTE | 2022-06-22 14:14 | XRAY ---
Indication: Vaginal bleeding. Limited transvaginal OB ultrasound demonstrates anteverted uterus 5 mm lower uterine segment nabothian cyst Endometrial stripe measures 4.8 mm. No endometrial cavity mass, fluid collection, or gestational sac/ pole. Right ovary sonographically unremarkable. Left ovary not visualized. No suspicious adnexal mass or free fluid. Impression: Nonvisualization left ovary. Negative for intrauterine/ectopic . Incidental tiny nabothian cyst.
[2022-06-22 14:31] VITALS: BP 132/86; PULSE 70; O2SAT 98
--- NOTE | 2022-06-22 14:37 | ERPHSYRPT ---
- History of Present Illness Time Seen by Provider: 06/22/22 14:38 Source: patient Exam Limitations: no limitations Patient Subjective Stated Complaint: pt here for vaginal bleeding for about a week now, was seen 2 days ago and states levels are low and missed the day to h ave them repeated, co some abd pain Triage Nursing Assessment: pt alert, walked in, resp easy, skin w/d/p, no edema , face mask in place, abd soft Physician History: Patient 22-year-old female presents to emergency department as a referral from her OB for evaluation of beta quant and ultrasound. Patient has been experiencing vaginal bleeding for approximately 1 week. 2 days ago she followed up at an outside hospital. Her beta quant at that time was 13. Ultrasound was negative. Patient was advised to repeat her ultrasound and beta quant to ensure that she was not . Patient had an appointment with her [facility] physician but missed it. So patient is here for repeat evaluation. Patient is resting comfortably. Patient advises that she was previously on a subcutaneous contraceptive which was discontinued about 3 to months ago. Patient was started on oral contraceptives and states that her periods have been abnormal since. No trauma. No fever. No nausea vomiting or diaphoresis. Symptoms are mild in intensity. No specific worsening improving factors. Mother at bedside. They voiced no other complaints or concerns at this time. Portions of this note were created with voice recognition technology. There may be grammatical, spelling, punctuation or sound alike errors Timing/Duration: day(s) (2 days ago) Severity: moderate Modifying Factors: Improves With: nothing Associated Symptoms: denies symptoms Allergies/Adverse Reactions: codeine Allergy (Verified 06/22/22 12:06) Home Medications: Venlafaxine HCl [Venlafaxine HCl ER] 225 mg PO DAILY 07/23/19 [History] Cariprazine HCl [Vraylar] 1 ea DAILY 06/22/22 [History] Topiramate 25 mg [Topamax 25 MG] 25 mg PO DAILY 06/22/22 [History] Hx Tetanus, Diphtheria Vaccination/Date Given: Yes Hx Influenza Vaccination/Date Given: No Hx Pneumococcal Vaccination/Date Given: No Immunizations Up to Date: Yes Travel Risk - International Travel Have you traveled outside of the country in past 3 weeks: No - Coronavirus Screening Are you exhibiting any of the following symptoms?: No - Vaccine Status Have you recieved a Covid-19 vaccination: Yes 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 - Vaccination Dates Date of 2cond Vaccination (if applicable): 2020 - Review of Systems Constitutional: No Symptoms, No Fever, No Chills Eyes: No Symptoms Ears, Nose, & Throat: No Symptoms Respiratory: No Symptoms, No Cough, No Dyspnea Cardiac: No Symptoms, No Chest Pain, No Edema, No Syncope Abdominal/Gastrointestinal: No Symptoms, No Abdominal Pain, No Nausea, No Vomiting, No Diarrhea Genitourinary Symptoms: No Symptoms, No Dysuria Musculoskeletal: No Symptoms, No Back Pain, No Neck Pain Skin: No Symptoms, No Rash Neurological: No Symptoms, No Dizziness, No Focal Weakness, No Sensory Changes Psychological: No Symptoms Endocrine: No Symptoms Hematologic/Lymphatic: No Symptoms Immunological/Allergic: No Symptoms All Other Systems: Reviewed and Negative - Past Medical History Pertinent Past Medical History: Yes Neurological History: No Pertinent History ENT History: No Pertinent History Cardiac History: No Pertinent History Respiratory History: Asthma, Bronchitis Endocrine Medical History: No Pertinent History Musculoskeletal History: Other GI Medical History: Gallbladder Disease History: No Pertinent History Psycho-Social History: Bipolar, Depression Female Reproductive Disorders: No Pertinent History Other Medical History: BIPOLAR DEPRESSION, personality disorder. PATIENT STATES ASTHMA AND BRONCHITIS WERE A CHILD. - Past Surgical History Past Surgical History: Yes Neuro Surgical History: No Pertinent History Cardiac: No Pertinent History Respiratory: No Pertinent History Gastrointestinal: Cholecystectomy Genitourinary: No Pertinent History Musculoskeletal: No Pertinent History Female Surgical History: No Pertinent History Other Surgical History: wisdom teeth 2 weeks ago - Social History Smoking Status: Current every day smoker How long have you smoked: 6 years Exposure to second hand smoke: Yes Drug Use: none Patient Lives Alone: No - Female History Hx Last Menstrual Period: nov Hx Now: Yes Expected Date of Delivery: 03/14/23 Gestational Age: na - Nursing Vital Signs Nursing Vital Signs: Initial Vital Signs Temperature 98.7 F 06/22/22 12:09 Pulse Rate 98 H 06/22/22 12:09 Respiratory Rate 18 06/22/22 12:09 Blood Pressure 127/80 06/22/22 12:09 O2 Sat by Pulse Oximetry 100 06/22/22 12:09 Pain Scale Pain Intensity 4 - Physical Exam General Appearance: no apparent distress, alert Eye Exam: PERRL/EOMI, eyes nml inspection Ears, Nose, Throat Exam: normal ENT inspection, TMs normal, pharynx normal, moist mucous membranes Neck Exam: normal inspection, non-tender, supple, full range of motion Respiratory Exam: normal breath sounds, lungs clear, airway intact, No respiratory distress Cardiovascular Exam: regular rate/rhythm, normal heart sounds, normal peripheral pulses Gastrointestinal/Abdomen Exam: soft, normal bowel sounds, No tenderness, No mass Pelvic Exam: normal external exam, vaginal bleeding, No adnexal tenderness, No adnexal mass, No cervical motion tenderness, No uterine tenderness, No vaginal discharge Back Exam: normal inspection, normal range of motion, No CVA tenderness, No vertebral tenderness Extremity Exam: normal inspection, normal range of motion, pelvis stable Neurologic Exam: alert, oriented x 3, cooperative, normal mood/affect, nml cerebellar function, nml station & gait, sensation nml, No motor deficits Skin Exam: normal color, warm, dry, No rash Lymphatic Exam: No adenopathy SpO2 Interpretation: normal SpO2: 98 O2 Delivery: Room Air - Course Nursing assessment & vital signs reviewed: Yes Ordered Tests: Active Orders 24 hr Category Date Time Status OB LIMITED [US] Stat Exams 06/22/22 12:42 Completed CBC W DIFF Stat Lab 06/22/22 12:50 Completed CMP Stat Lab 06/22/22 12:50 Completed CULTURE,URINE Stat Lab 06/22/22 13:07 Received HCG, Quantitative (Inhouse) Stat Lab 06/22/22 12:50 Completed UA W/RFX CULTURE Stat Lab 06/22/22 13:07 Completed Wet Prep Stat Lab 06/22/22 13:55 Completed Lab/Rad Data: Laboratory Result Diagrams 06/22/22 12:50 06/22/22 12:50 Laboratory Results 06/22/22 06/22/22 06/22/22 Range/Units 13:55 13:07 12:50 WBC (4.0-10.5) x10^3/uL RBC (4.1-5.4) x10^6/uL Hgb (12.0-16.0) g/dL Hct (35-47) % MCV (78-100) fL MCH (26-32) pg MCHC (32-36) g/dL RDW (11.5-14.0) % Plt Count (150-450) x10^3/uL MPV (7.5-11.0) fL Gran % (36.0-66.0) % Immature Gran % (Auto) (0.00-0.4) % Nucleat RBC Rel Count (0.00-0.1) % Eos # (Auto) (0-0.5) x10^3/uL Immature Gran # (Auto) (0.00-0.03) x10^3u/L Absolute Lymphs (auto) (1.0-4.6) x10^3/uL Absolute Monos (auto) (0.0-1.3) x10^3/uL Absolute Nucleated RBC (0.00-0.01) x10^3u/L Lymphocytes % (24.0-44.0) % Monocytes % (0.0-12.0) % Eosinophils % (0.00-5.0) % Basophils % (0.0-0.4) % Absolute Granulocytes (1.4-6.9) x10^3/uL Basophils # (0-0.4) x10^3/uL Sodium 138 (137-145) mmol/L Potassium 3.4 L (3.5-5.1) mmol/L Chloride 108 H (98-107) mmol/L Carbon Dioxide 23 (22-30) mmol/L Anion Gap 10.8 (5-15) MEQ/L BUN 9 (7-17) mg/dL Creatinine 0.74 (0.52-1.04) mg/dL Estimated GFR > 60.0 ML/MIN Glucose 87 (74-106) mg/dL Calcium 8.5 (8.4-10.2) mg/dL Total Bilirubin 1.00 (0.2-1.3) mg/dL AST 24 (14-36) U/L ALT 23 (0-35) U/L Alkaline Phosphatase 48 (38-126) U/L Serum Total Protein 6.9 (6.3-8.2) g/dL Albumin 4.1 (3.5-5.0) g/dL Beta HCG, Quant < 2.39 mIU/ml Urinalys Dipstick Clnc MAIN LAB Urine Color YELLOW (YELLOW) Urine Appearance CLOUDY A (CLEAR) Urine pH 8.5 A (5-6) Ur Specific [place] 1.020 (1.005-1.025) POC Urine Protein Conf 30 A (Negative) Urine Ketones NEGATIVE (NEGATIVE) Urine Nitrite NEGATIVE (NEGATIVE) Urine Bilirubin NEGATIVE (NEGATIVE) Urine Urobilinogen 2 A (0-1) mg/dL Urine Leukocytes NEGATIVE (NEGATIVE) Urine WBC (Auto) NONE (0-5) /HPF Urine RBC (Auto) NONE (0-2) /HPF U Epithel Cells (Auto) MODERATE (FEW) /HPF Urine Bacteria (Auto) FEW A (NEGATIVE) /HPF Urine RBC LARGE A (0-5) Denilson/ul Amorphous Crystals MODERATE A (NEGATIVE) /HPF Urine Mucus (Auto) SLIGHT A (NEGATIVE) /HPF Ur Culture Indicated? YES Urine Glucose NEGATIVE (NEGATIVE) mg/dL WBC (Wet Prep) Few RBC (Wet Prep) Many Epi Cells (Wet Prep) Moderate Bacteria (Wet Prep) Moderate Clue Cells (Wet Prep) None Seen Trichomonas (Wet Prep) None Seen Budding Yeast (Wet Prp) None Seen 06/22/22 Range/Units 12:50 WBC 11.2 H (4.0-10.5) x10^3/uL RBC 4.77 (4.1-5.4) x10^6/uL Hgb 14.3 (12.0-16.0) g/dL Hct 43.2 (35-47) % MCV 90.6 (78-100) fL MCH 30.0 (26-32) pg MCHC 33.1 (32-36) g/dL RDW 13.9 (11.5-14.0) % Plt Count 341 (150-450) x10^3/uL MPV 9.5 (7.5-11.0) fL Gran % 49.9 (36.0-66.0) % Immature Gran % (Auto) 0.3 (0.00-0.4) % Nucleat RBC Rel Count 0.0 (0.00-0.1) % Eos # (Auto) 0.10 (0-0.5) x10^3/uL Immature Gran # (Auto) 0.03 (0.00-0.03) x10^3u/L Absolute Lymphs (auto) 4.72 H (1.0-4.6) x10^3/uL Absolute Monos (auto) 0.65 (0.0-1.3) x10^3/uL Absolute Nucleated RBC 0.00 (0.00-0.01) x10^3u/L Lymphocytes % 42.3 (24.0-44.0) % Monocytes % 5.8 (0.0-12.0) % Eosinophils % 0.9 (0.00-5.0) % Basophils % 0.8 (0.0-0.4) % Absolute Granulocytes 5.58 (1.4-6.9) x10^3/uL Basophils # 0.09 (0-0.4) x10^3/uL Sodium (137-145) mmol/L Potassium (3.5-5.1) mmol/L Chloride (98-107) mmol/L Carbon Dioxide (22-30) mmol/L Anion Gap (5-15) MEQ/L BUN (7-17) mg/dL Creatinine (0.52-1.04) mg/dL Estimated GFR ML/MIN Glucose (74-106) mg/dL Calcium (8.4-10.2) mg/dL Total Bilirubin (0.2-1.3) mg/dL AST (14-36) U/L ALT (0-35) U/L Alkaline Phosphatase (38-126) U/L Serum Total Protein (6.3-8.2) g/dL Albumin (3.5-5.0) g/dL Beta HCG, Quant mIU/ml Urinalys Dipstick Clnc Urine Color (YELLOW) Urine Appearance (CLEAR) Urine pH (5-6) Ur Specific [place] (1.005-1.025) POC Urine Protein Conf (Negative) Urine Ketones (NEGATIVE) Urine Nitrite (NEGATIVE) Urine Bilirubin (NEGATIVE) Urine Urobilinogen (0-1) mg/dL Urine Leukocytes (NEGATIVE) Urine WBC (Auto) (0-5) /HPF Urine RBC (Auto) (0-2) /HPF U Epithel Cells (Auto) (FEW) /HPF Urine Bacteria (Auto) (NEGATIVE) /HPF Urine RBC (0-5) Denilson/ul Amorphous Crystals (NEGATIVE) /HPF Urine Mucus (Auto) (NEGATIVE) /HPF Ur Culture Indicated? Urine Glucose (NEGATIVE) mg/dL WBC (Wet Prep) RBC (Wet Prep) Epi Cells (Wet Prep) Bacteria (Wet Prep) Clue Cells (Wet Prep) Trichomonas (Wet Prep) Budding Yeast (Wet Prp) - Progress Progress: improved Progress Note: Patient reassessed. She is well. No active vaginal bleeding. There are some blood in the vaginal vault. No CMT. No adnexal masses. Normal external anatomy. Patient's beta quant is less than 2. Ultrasound negative for IUP. No evidence for ectopic. Patient is pain-free. We contacted Dr. Bacon'jagdish for an update. He advised that she call his office for a follow-up visit. Patient is experiencing heavy vaginal bleeding. Patient recently switched from subcutaneous contraceptive to an oral contraceptive. Since then she has been experiencing heavy periods. No indication for further work-up at this time. Will discharge home. Patient agrees to follow-up with [facility] physician within 48 hours for evaluation. Portions of this note were created with voice recognition technology. There may be grammatical, spelling, punctuation or sound alike errors 06/22/22 14:44 Counseled pt/family regarding: lab results, diagnosis, need for follow-up, rad results - Departure Departure Disposition: Home Clinical Impression: Vaginal bleeding Condition: Stable Critical Care Time: No Referrals: TESSA RAMOS MD [Primary Care Provider] - Follow up/PCP as directed Additional Instructions: Discharge/Care Plan BERHANE GARCIA was seen on 06/22/22 in the Emergency Room. The patient was counseled regarding Diagnosis,Lab results, Imaging studies, need for follow up and when to return to the Emergency Room. Prescriptions given: Discharge Note I have spoken with the patient and/or caregivers. I have explained the patient's condition, diagnosis and treatment plan based on the information available to me at this time. I have answered the patient's and/or caregiver's questions and addressed any concerns. The patient and/or caregivers have as good understanding of the patient's diagnosis, condition and treatment plan as can be expected at this point. The vital signs have been stable. The patient's condition is stable and appropriate for discharge from the emergency department. The patient will pursue further outpatient evaluation with the primary care physician or other designated or consulting physician as outlined in the discharge instructions. The patient and/or caregivers are agreeable to this plan of care and follow-up instructions have been explained in detail. The patient and/or caregivers have received these instruction. The patient/and or caregivers are aware that any significant change in condition or worsening of symptoms should prompt an immediate return to this or the closest emergency department or call 911.
[2022-06-22 22:40] LABS: CHLAMYDIA DNA NOT DETECTED (NEGATIVE); GC DNA Probe NOT DETECTED (NEGATIVE)
== END 2022-06-22 14:50 | disposition home or self-care (01) ==
LOC: ED 11:49
DX: N93.9 Abnormal uterine and vaginal bleeding, unspecified (principal); Z79.899 Other long term (current) drug therapy; Z72.0 Tobacco use
CPT/HCPCS: 36415; 76815; 80053; 81015; 84702; 85025; 87086; 87210; 87491; 87591; 99283

== ENCOUNTER 2022-10-06 15:35 | Emergency (ER) | payer OTHER ==
[2022-10-06] MEDS ORDERED: Sodium Chloride 0.9% 1000 ML 1,000 ML IV STA (15:49)
[2022-10-06] MEDS ORDERED: Sodium Chloride 0.9% 1000 ML 1,000 ML ONE (15:52)
[2022-10-06 16:15] LABS: Appearance Cloudy (Clear); Bilirubin Negative (Negative); Blood Negative (Negative); Epithelial Cells Moderate /HPF (None Seen); Glucose, Urine Negative (Negative); Ketones Trace (Negative); Leukocyte Esterase Negative (Negative); Nitrite Negative (Negative); Ph 6.5 (4.6-8.0); Protein,Urine Dip Trace (Negative); Specific Gravity 1.025 (1.005-1.030); WBC 0-2 /HPF (0-5)
[2022-10-06 16:17] LABS: Absolute Neutrophil Ct (ANC) 7.41 x10^3/uL (1.4-6.9); BASOPHIL % 0.4 % (0.0-0.4); Basophil (Absolute #) 0.05 x10^3/uL (0-0.4); Eosinophil % 0.6 % (0.00-5.0); Eosinophil (Absolute #) 0.08 x10^3/uL (0-0.5); Hematocrit 42.7 % (35-47); Hemoglobin 14.5 g/dL (12.0-16.0); IMMATURE GRAN # 0.04 x10^3u/L (0.00-0.03); IMMATURE GRAN % 0.3 % (0.00-0.4); Lymphocyte (Absolute #) 4.54 x10^3/uL (1.0-4.6); Lymphocytes % 35.2 % (24.0-44.0); Mean Cell Volume 88.6 fL (78-100); Mean Corpuscular Hemoglobin 30.1 pg (26-32); Mean Platelet Volume 10.4 fL (7.5-11.0); Monocyte (Absolute #) 0.79 x10^3/uL (0.0-1.3); Monocytes % 6.1 % (0.0-12.0); Neutrophil % 57.4 % (36.0-66.0); Platelet Count 331 x10^3/uL (150-450); Red Blood Count 4.82 x10^6/uL (4.1-5.4); Red Cell Distribution Width 13.1 % (11.5-14.0); White Blood Count 12.9 x10^3/uL (4.0-10.5)
[2022-10-06 16:28] LABS: ALBUMIN 4.2 g/dL (3.5-5.0); ALKALINE PHOSPHATASE 47 U/L (38-126); AMYLASE 47 U/L (30-110); ANION GAP 12.5 MEQ/L (5-15); BLOOD UREA NITROGEN 5 mg/dL (7-17); CHLORIDE 103 mmol/L (98-107); Calcium 9.2 mg/dL (8.4-10.2); Carbon Dioxide 27 mmol/L (22-30); Creatinine 1 0.48 mg/dL (0.52-1.04); EST GLOMERULAR FILTRATION RATE > 60.0 ML/MIN; Glucose 78 mg/dL (74-106); LIPASE 42 U/L (23-300); Potassium 3.5 mmol/L (3.5-5.1); SGOT/AST 24 U/L (14-36); SGPT/ALT 34 U/L (0-35); SODIUM 140 mmol/L (137-145); Total Protein 7.2 g/dL (6.3-8.2)
[2022-10-06 16:48] LABS: ADD URINE CULTURE? YES (NO); Bacteria Rare /HPF (None Seen)
--- NOTE | 2022-10-06 16:54 | ERPHSYRPT ---
- History of Present Illness Time Seen by Provider: 10/06/22 16:00 Source: patient Exam Limitations: no limitations Patient Subjective Stated Complaint: Vomiting Triage Nursing Assessment: Patient ambulated back to ED and transferred self to bed. Patient A+O X3. Patient's skin pink, warm and dry. Patient states she is currently 10 weeks . Patient states she had one episode of vomiting with a dime size amount of blood mixed in. Patient denies pain or discomfort. 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 Nayeli Castro. She presents today with an episode of vomiting only this time there was a small amount of blood in the emesis. She is been on Zofran at home and never vomited blood before. She has not been tried on Reglan. Timing/Duration: today Severity: moderate Associated Symptoms: nausea, vomiting Allergies/Adverse Reactions: codeine Allergy (Verified 10/06/22 15:43) Hx Tetanus, Diphtheria Vaccination/Date Given: Yes Hx Influenza Vaccination/Date Given: No Hx Pneumococcal Vaccination/Date Given: No Travel Risk - International Travel Have you traveled outside of the country in past 3 weeks: No - Coronavirus Screening Are you exhibiting any of the following symptoms?: No Close contact with a COVID-19 positive Pt in past 14-21 Days: No - Vaccine Status Have you recieved a Covid-19 vaccination: Yes Manufacturing [employer]: Moderna - Vaccination Dates Date of 2cond Vaccination (if applicable): 2020 - Review of Systems Constitutional: No Fever, No Chills Eyes: No Symptoms Ears, Nose, & Throat: No Symptoms Respiratory: No Cough, No Dyspnea Cardiac: No Chest Pain, No Edema, No Syncope Abdominal/Gastrointestinal: Nausea, Vomiting, Hematemesis Genitourinary Symptoms: No Dysuria Musculoskeletal: No Back Pain, No Neck Pain Skin: No Rash Neurological: No Dizziness, No Focal Weakness, No Sensory Changes Psychological: No Symptoms Endocrine: No Symptoms All Other Systems: Reviewed and Negative - Past Medical History Pertinent Past Medical History: Yes Neurological History: No Pertinent History ENT History: No Pertinent History Cardiac History: No Pertinent History Respiratory History: Asthma, Bronchitis Endocrine Medical History: No Pertinent History Musculoskeletal History: Other GI Medical History: Gallbladder Disease History: No Pertinent History Psycho-Social History: Bipolar, Depression Female Reproductive Disorders: No Pertinent History Other Medical History: BIPOLAR DEPRESSION, personality disorder. PATIENT STATES ASTHMA AND BRONCHITIS WERE A CHILD. - Past Surgical History Past Surgical History: Yes Neuro Surgical History: No Pertinent History Cardiac: No Pertinent History Respiratory: No Pertinent History Gastrointestinal: Cholecystectomy Genitourinary: No Pertinent History Musculoskeletal: No Pertinent History Female Surgical History: No Pertinent History Other Surgical History: wisdom teeth 2 weeks ago - Social History Smoking Status: Current every day smoker How long have you smoked: 6 years Exposure to second hand smoke: Yes Drug Use: none Patient Lives Alone: No - Female History Hx Last Menstrual Period: July Hx Now: Yes Gestational Age: na - Nursing Vital Signs Nursing Vital Signs: Initial Vital Signs Temperature 97.7 F 10/06/22 15:44 Pulse Rate 104 H 10/06/22 15:44 Respiratory Rate 18 10/06/22 15:44 Blood Pressure 136/86 10/06/22 15:44 O2 Sat by Pulse Oximetry 100 10/06/22 15:44 Pain Scale Pain Intensity 0 - Physical Exam General Appearance: mild distress, alert Eye Exam: PERRL/EOMI, eyes nml inspection Ears, Nose, Throat Exam: normal ENT inspection, TMs normal, pharynx normal, moist mucous membranes Neck Exam: normal inspection, non-tender, supple, full range of motion Respiratory Exam: normal breath sounds, lungs clear, No respiratory distress Cardiovascular Exam: regular rate/rhythm, normal heart sounds, normal peripheral pulses Gastrointestinal/Abdomen Exam: soft, normal bowel sounds, other ( heart tones positive), No tenderness, No mass Pelvic Exam: not done Back Exam: normal inspection, normal range of motion, No CVA tenderness, No vert ebral tenderness Extremity Exam: normal inspection, normal range of motion, pelvis stable Neurologic Exam: alert, oriented x 3, cooperative, normal mood/affect, nml cerebellar function, nml station & gait, sensation nml, No motor deficits Skin Exam: normal color, warm, dry, No rash Lymphatic Exam: No adenopathy SpO2: 100 - Course Nursing assessment & vital signs reviewed: Yes Ordered Tests: Active Orders 24 hr Category Date Time Status IV Insertion STAT Care 10/06/22 15:49 Active AMYLASE Stat Lab 10/06/22 15:47 Completed CBC W DIFF Stat Lab 10/06/22 15:47 Completed CMP Stat Lab 10/06/22 15:47 Completed LIPASE Stat Lab 10/06/22 15:47 Completed Lactic Acid Stat Lab 10/06/22 16:01 Completed UA W/RFX UR CULTURE Stat Lab 10/06/22 15:51 Received Medication Summary Generic Name Dose Route Start Last Admin Trade Name Beth PRN Reason Stop Dose Admin Sodium Chloride 1,000 mls @ 999 mls/hr 10/06/22 15:49 10/06/22 15:53 Sodium Chloride 0.9% 1000 Ml IV 10/06/22 16:49 999 mls/hr .Q1H1M STA Administration Discontinued Medications Generic Name Dose Route Start Last Admin Trade Name Yassineq PRN Reason Stop Dose Admin Sodium Chloride Confirm 10/06/22 15:52 Sodium Chloride 0.9% 1000 Ml Administered 10/06/22 15:53 Dose 1,000 mls @ ud .ROUTE .K-MED ONE Lab/Rad Data: Laboratory Result Diagrams 10/06/22 15:47 10/06/22 15:47 Laboratory Results 10/06/22 10/06/22 10/06/22 Range/Units 16:01 15:51 15:47 WBC (4.0-10.5) x10^3/uL RBC (4.1-5.4) x10^6/uL Hgb (12.0-16.0) g/dL Hct (35-47) % MCV (78-100) fL MCH (26-32) pg MCHC (32-36) g/dL RDW (11.5-14.0) % Plt Count (150-450) x10^3/uL MPV (7.5-11.0) fL Gran % (36.0-66.0) % Immature Gran % (Auto) (0.00-0.4) % Nucleat RBC Rel Count (0.00-0.1) % Eos # (Auto) (0-0.5) x10^3/uL Immature Gran # (Auto) (0.00-0.03) x10^3u/L Absolute Lymphs (auto) (1.0-4.6) x10^3/uL Absolute Monos (auto) (0.0-1.3) x10^3/uL Absolute Nucleated RBC (0.00-0.01) x10^3u/L Lymphocytes % (24.0-44.0) % Monocytes % (0.0-12.0) % Eosinophils % (0.00-5.0) % Basophils % (0.0-0.4) % Absolute Granulocytes (1.4-6.9) x10^3/uL Basophils # (0-0.4) x10^3/uL Sodium 140 (137-145) mmol/L Potassium 3.5 (3.5-5.1) mmol/L Chloride 103 (98-107) mmol/L Carbon Dioxide 27 (22-30) mmol/L Anion Gap 12.5 (5-15) MEQ/L BUN 5 L (7-17) mg/dL Creatinine 0.48 L (0.52-1.04) mg/dL Estimated GFR > 60.0 ML/MIN Glucose 78 (74-106) mg/dL Lactic Acid 1.1 (0.4-2.0) Calcium 9.2 (8.4-10.2) mg/dL Total Bilirubin 0.80 (0.2-1.3) mg/dL AST 24 (14-36) U/L ALT 34 (0-35) U/L Alkaline Phosphatase 47 (38-126) U/L Serum Total Protein 7.2 (6.3-8.2) g/dL Albumin 4.2 (3.5-5.0) g/dL Amylase 47 (30-110) U/L Lipase 42 (23-300) U/L Urine Color Dark Yellow A (Yellow) Urine Appearance Cloudy A (Clear) Urine pH 6.5 (4.6-8.0) Ur Specific [place] 1.025 (1.005-1.030) Urine Protein Trace A (Negative) Urine Glucose (UA) Negative (Negative) mg/dL Urine Ketones Trace A (Negative) Urine Blood Negative (Negative) Urine Nitrite Negative (Negative) Urine Bilirubin Negative (Negative) Urine Urobilinogen 1.0 A (0.2) mg/dL Ur Leukocyte Esterase Negative (Negative) U Hyaline Cast (Auto) 3-5 A (0-2) /LPF Urine Microscopic RBC 3-5 (0-5) /HPF Urine Microscopic WBC 0-2 (0-5) /HPF Ur Epithelial Cells Moderate A (None Seen) /HPF Urine Bacteria Rare A (None Seen) /HPF Urine Yeast (Budding) (None Seen) /HPF Urine Culture Reflexed YES (NO) 10/06/22 Range/Units 15:47 WBC 12.9 H (4.0-10.5) x10^3/uL RBC 4.82 (4.1-5.4) x10^6/uL Hgb 14.5 (12.0-16.0) g/dL Hct 42.7 (35-47) % MCV 88.6 (78-100) fL MCH 30.1 (26-32) pg MCHC 34.0 (32-36) g/dL RDW 13.1 (11.5-14.0) % Plt Count 331 (150-450) x10^3/uL MPV 10.4 (7.5-11.0) fL Gran % 57.4 (36.0-66.0) % Immature Gran % (Auto) 0.3 (0.00-0.4) % Nucleat RBC Rel Count 0.0 (0.00-0.1) % Eos # (Auto) 0.08 (0-0.5) x10^3/uL Immature Gran # (Auto) 0.04 H (0.00-0.03) x10^3u/L Absolute Lymphs (auto) 4.54 (1.0-4.6) x10^3/uL Absolute Monos (auto) 0.79 (0.0-1.3) x10^3/uL Absolute Nucleated RBC 0.00 (0.00-0.01) x10^3u/L Lymphocytes % 35.2 (24.0-44.0) % Monocytes % 6.1 (0.0-12.0) % Eosinophils % 0.6 (0.00-5.0) % Basophils % 0.4 (0.0-0.4) % Absolute Granulocytes 7.41 H (1.4-6.9) x10^3/uL Basophils # 0.05 (0-0.4) x10^3/uL Sodium (137-145) mmol/L Potassium (3.5-5.1) mmol/L Chloride (98-107) mmol/L Carbon Dioxide (22-30) mmol/L Anion Gap (5-15) MEQ/L BUN (7-17) mg/dL Creatinine (0.52-1.04) mg/dL Estimated GFR ML/MIN Glucose (74-106) mg/dL Lactic Acid (0.4-2.0) Calcium (8.4-10.2) mg/dL Total Bilirubin (0.2-1.3) mg/dL AST (14-36) U/L ALT (0-35) U/L Alkaline Phosphatase (38-126) U/L Serum Total Protein (6.3-8.2) g/dL Albumin (3.5-5.0) g/dL Amylase (30-110) U/L Lipase (23-300) U/L Urine Color (Yellow) Urine Appearance (Clear) Urine pH (4.6-8.0) Ur Specific [place] (1.005-1.030) Urine Protein (Negative) Urine Glucose (UA) (Negative) mg/dL Urine Ketones (Negative) Urine Blood (Negative) Urine Nitrite (Negative) Urine Bilirubin (Negative) Urine Urobilinogen (0.2) mg/dL Ur Leukocyte Esterase (Negative) U Hyaline Cast (Auto) (0-2) /LPF Urine Microscopic RBC (0-5) /HPF Urine Microscopic WBC (0-5) /HPF Ur Epithelial Cells (None Seen) /HPF Urine Bacteria (None Seen) /HPF Urine Yeast (Budding) (None Seen) /HPF Urine Culture Reflexed (NO) - Progress Progress: improved Medical Desision Making - Independent Historian Additional History obtained from: Spouse - Discussion of managment Care discussed with:: PCP Reviewed:: Test results Agreed on:: Treatment plan, need for follow-up Will see patient: In office - Diagnostic Testing Diagnostic test were ordered, analyzed, and reviewed by me: Yes - Risk of complications Low Risk: Low risk of morbidity from additional dx testing or treatment The pt has a mod risk of morbidity or mortality based on: Need for prescription drug management - Departure Departure Disposition: Home Clinical Impression: Hyperemesis gravidarum, Kassi-Cornelius syndrome Condition: Stable Critical Care Time: No Referrals: TESSA RAMOS MD [Primary Care Provider] - Follow up/PCP as directed Instructions: Hyperemesis Gravidarum (DC) Prescriptions: Metoclopramide HCl 10 mg [Reglan 10 MG] 10 mg PO Q6H 5 Days #20 tablet
[2022-10-06 16:59] VITALS: BP 102/71; PULSE 88; O2SAT 98
== END 2022-10-06 17:06 | disposition home or self-care (01) ==
LOC: ED 15:35
DX: O21.0 Mild hyperemesis gravidarum (principal); Z3A.10 10 weeks gestation of pregnancy; K22.6 Gastro-esophageal laceration-hemorrhage syndrome; O09.291 Supervision of pregnancy with other poor reproductive or obstetric history, first trimester; O26.21 Pregnancy care for patient with recurrent pregnancy loss, first trimester; Z72.0 Tobacco use
CPT/HCPCS: 36000; 36415; 80053; 81001; 82150; 83605; 83690; 85025; 87086; 96360; 99284

== ENCOUNTER 2022-11-23 15:41 | Emergency (ER) | payer MEDICAID, OTHER ==
--- NOTE | 2022-11-23 15:53 | ERPHSYRPT ---
- History of Present Illness Time Seen by Provider: 11/23/22 15:51 Historian: patient, family (His mother provided independent history) Exam Limitations: no limitations Physician History: This is a 22-year-old white female who is [address] weeks [address] Bacon as her aquatic physiotherapist. Patient has been having nausea and vomiting intermittently since her . In the last 2 to 3 days she has had increasing episodes. She has no abdominal pain. She has no chest pain. She has no shortness of breath. Patient did use Zofran early in her which was helpful to her. Timing/Duration: day(s) (2 to 3 days), intermittent, worse Activities at Onset: none Severity of Pain-Max: none Severity of Pain-Current: none Modifying Factors: Improves With: vomiting Associated Symptoms: nausea, vomiting, No chest pain, No diarrhea, No fever/chills, No loss of appetite, No shortness of breath Previous symptoms: same symptoms as today, no recent treatment Allergies/Adverse Reactions: codeine Allergy (Verified 11/23/22 16:14) Home Medications: No122/Iron/Folic Acid [ Multi Tablet] 1 tab PO HS 11/23/22 [History] Hx Tetanus, Diphtheria Vaccination/Date Given: Yes Hx Influenza Vaccination/Date Given: No Hx Pneumococcal Vaccination/Date Given: No Travel Risk - International Travel Have you traveled outside of the country in past 3 weeks: No - Coronavirus Screening Are you exhibiting any of the following symptoms?: No Close contact with a COVID-19 positive Pt in past 14-21 Days: No - Vaccine Status Have you recieved a Covid-19 vaccination: Yes [employer]: Moderna - Vaccination Dates Date of 2cond Vaccination (if applicable): 2020 - Review of Systems Constitutional: No Symptoms Eyes: No Symptoms Ears, Nose, & Throat: No Symptoms Respiratory: No Symptoms Cardiac: No Symptoms Abdominal/Gastrointestinal: Nausea, Vomiting, No Abdominal Pain, No Diarrhea, No Constipation Genitourinary Symptoms: No Symptoms, No Dysuria, No Frequency, No Hematuria, No Flank Pain, No Vaginal Bleeding, No Vaginal Discharge Musculoskeletal: No Symptoms Skin: No Symptoms Neurological: No Symptoms Psychological: No Symptoms Endocrine: No Symptoms Hematologic/Lymphatic: No Symptoms Immunological/Allergic: No Symptoms All Other Systems: Reviewed and Negative - Past Medical History Pertinent Past Medical History: Yes Neurological History: No Pertinent History ENT History: No Pertinent History Cardiac History: No Pertinent History Respiratory History: Asthma, Bronchitis Endocrine Medical History: No Pertinent History Musculoskeletal History: Other GI Medical History: Gallbladder Disease History: No Pertinent History Psycho-Social History: Bipolar, Depression Female Reproductive Disorders: No Pertinent History Other Medical History: BIPOLAR DEPRESSION, personality disorder. PATIENT STATES ASTHMA AND BRONCHITIS WERE A CHILD. - Past Surgical History Past Surgical History: Yes Neuro Surgical History: No Pertinent History Cardiac: No Pertinent History Respiratory: No Pertinent History Gastrointestinal: Cholecystectomy Genitourinary: No Pertinent History Musculoskeletal: No Pertinent History Female Surgical History: No Pertinent History Other Surgical History: wisdom teeth 2 weeks ago - Social History Smoking Status: Current every day smoker How long have you smoked: 6 years Exposure to second hand smoke: Yes Drug Use: none Patient Lives Alone: No - Nursing Vital Signs Nursing Vital Signs: Initial Vital Signs Pulse Rate 90 11/23/22 15:42 Respiratory Rate 18 11/23/22 15:42 Blood Pressure 129/77 11/23/22 15:42 O2 Sat by Pulse Oximetry 96 11/23/22 15:42 Pain Scale Pain Intensity 0 - Physical Exam General Appearance: no apparent distress, alert, anxiety Eye Exam: PERRL/EOMI, eyes nml inspection Ears, Nose, Throat Exam: normal ENT inspection, moist mucous membranes Neck Exam: normal inspection, non-tender, supple, full range of motion Respiratory Exam: normal breath sounds, lungs clear, airway intact, No chest tenderness, No respiratory distress Cardiovascular Exam: regular rate/rhythm, normal heart sounds, normal peripheral pulses Gastrointestinal/Abdomen Exam: soft, normal bowel sounds, No tenderness Pelvic Exam: not done Rectal Exam: not done Back Exam: normal inspection, normal range of motion, No CVA tenderness, No vertebral tenderness Extremity Exam: normal inspection, normal range of motion, pelvis stable Neurologic Exam: alert, oriented x 3, cooperative, prefitter II-XII nml as tested, normal mood/affect, nml cerebellar function, nml station & gait, sensation nml Skin Exam: normal color, warm, dry Lymphatic Exam: No adenopathy SpO2 Interpretation: normal O2 Delivery: Room Air Ordered Tests: Active Orders 24 hr Category Date Time Status IV Insertion STAT Care 11/23/22 16:21 Active AMYLASE Stat Lab 11/23/22 16:25 Completed CBC W DIFF Stat Lab 11/23/22 16:25 Completed CMP Stat Lab 11/23/22 16:25 Completed CULTURE,URINE Stat Lab 11/23/22 18:10 Received LIPASE Stat Lab 11/23/22 16:25 Completed UA W/RFX UR CULTURE Stat Lab 11/23/22 18:10 Completed Medication Summary Generic Name Dose Route Start Last Admin Trade Name Beth PRN Reason Stop Dose Admin Ceftriaxone Sodium/Dextrose 1 g in 50 mls @ 100 mls/hr 11/23/22 18:54 Rocephin 1 Gm-D5w 50 Ml Bag IV 11/23/22 19:23 STAT STA Discontinued Medications Generic Name Dose Route Start Last Admin Trade Name Beth PRN Reason Stop Dose Admin Sodium Chloride 1,000 mls @ 999 mls/hr 11/23/22 16:21 11/23/22 17:34 Sodium Chloride 0.9% 1000 Ml IV 11/23/22 17:21 Infused .Q1H1M STA Infusion Sodium Chloride Confirm 11/23/22 16:28 Sodium Chloride 0.9% 1000 Ml Administered 11/23/22 16:29 Dose 1,000 mls @ ud .ROUTE .STK-MED ONE Sodium Chloride 500 mls @ 500 mls/hr 11/23/22 17:21 11/23/22 18:25 Sodium Chloride 0.9% 500 Ml IV 11/23/22 18:20 Infused .Q1H ONE Infusion Sodium Chloride Confirm 11/23/22 17:24 Sodium Chloride 0.9% 500 Ml Administered 11/23/22 17:25 Dose 500 mls @ ud IV .STK-MED ONE Ondansetron HCl 4 mg 11/23/22 16:21 11/23/22 16:32 Ondansetron Hcl 4 Mg/2 Ml Vial IV 11/23/22 16:22 4 mg STAT ONE Administration Ondansetron HCl Confirm 11/23/22 16:28 Ondansetron Hcl 4 Mg/2 Ml Vial Administered 11/23/22 16:29 Dose 4 mg .ROUTE .STK-MED ONE Lab/Rad Data: Laboratory Result Diagrams 11/23/22 16:25 11/23/22 16:25 Laboratory Results 11/23/22 11/23/22 11/23/22 Range/Units 18:10 16:25 16:25 WBC 10.6 H (4.0-10.5) x10^3/uL RBC 4.57 (4.1-5.4) x10^6/uL Hgb 13.7 (12.0-16.0) g/dL Hct 39.5 (35-47) % MCV 86.4 (78-100) fL MCH 30.0 (26-32) pg MCHC 34.7 (32-36) g/dL RDW 13.9 (11.5-14.0) % Plt Count 286 (150-450) x10^3/uL MPV 10.7 (7.5-11.0) fL Gran % 70.9 H (36.0-66.0) % Immature Gran % (Auto) 0.4 (0.00-0.4) % Nucleat RBC Rel Count 0.0 (0.00-0.1) % Eos # (Auto) 0.06 (0-0.5) x10^3/uL Immature Gran # (Auto) 0.04 H (0.00-0.03) x10^3u/L Absolute Lymphs (auto) 2.05 (1.0-4.6) x10^3/uL Absolute Monos (auto) 0.88 (0.0-1.3) x10^3/uL Absolute Nucleated RBC 0.00 (0.00-0.01) x10^3u/L Lymphocytes % 19.4 L (24.0-44.0) % Monocytes % 8.3 (0.0-12.0) % Eosinophils % 0.6 (0.00-5.0) % Basophils % 0.4 (0.0-0.4) % Absolute Granulocytes 7.51 H (1.4-6.9) x10^3/uL Basophils # 0.04 (0-0.4) x10^3/uL Sodium 137 (137-145) mmol/L Potassium 3.4 L (3.5-5.1) mmol/L Chloride 105 (98-107) mmol/L Carbon Dioxide 22 (22-30) mmol/L Anion Gap 13.5 (5-15) MEQ/L BUN 5 L (7-17) mg/dL Creatinine 0.42 L (0.52-1.04) mg/dL Estimated GFR > 60.0 ML/MIN Glucose 84 (74-106) mg/dL Calcium 8.7 (8.4-10.2) mg/dL Total Bilirubin 0.70 (0.2-1.3) mg/dL AST 41 H (14-36) U/L ALT 40 H (0-35) U/L Alkaline Phosphatase 50 (38-126) U/L Serum Total Protein 7.4 (6.3-8.2) g/dL Albumin 4.1 (3.5-5.0) g/dL Amylase 58 (30-110) U/L Lipase 38 (23-300) U/L Urine Color Dark Yellow A (Yellow) Urine Appearance Cloudy A (Clear) Urine pH 6.0 (4.6-8.0) Ur Specific [place] >=1.030 A (1.005-1.030) Urine Protein 30 (Negative) Urine Glucose (UA) Negative (Negative) mg/dL Urine Ketones 80 A (Negative) Urine Blood Negative (Negative) Urine Nitrite Negative (Negative) Urine Bilirubin Moderate A (Negative) Urine Urobilinogen 1.0 A (0.2) mg/dL Ur Leukocyte Esterase Small A (Negative) U Hyaline Cast (Auto) NONE SEEN (0-2) /LPF Urine Microscopic RBC 0-2 (0-5) /HPF Urine Microscopic WBC 3-5 (0-5) /HPF Ur Epithelial Cells Moderate A (None Seen) /HPF Urine Bacteria Moderate A (None Seen) /HPF Urine Culture Reflexed YES (NO) - Progress Progress: improved, re-examined Progress Note: 11/23/22 18:14 This patient's medical issue is 1 of moderate complexity. Level of complexity and the work-up performed is based on review of the patient's past medical history, review of the patient's medication list, review of the patient's drug allergy list, history of present illness, physical findings on examination. The work-up includes obtaining heart tones, placing an intravenous line and infusion of 1 L of normal saline solution, infusion of 4 mg intravenous Zofran, CBC, CMP, amylase, lipase and urinalysis. The patient is also added that she has had some vaginal itching without vaginal discharge. Work-up results were reviewed by me. The urinalysis is pending. Per nurses report, the heart tones were in the 150s and baby was moving. 11/23/22 18:[address] with [address] Bacon regarding this patient and her presentation. We discussed plan of care. She will receive a prescription for Zofran that will be sent remotely to her pharmacy. 11/23/22 19:09 This patient has UTI and evidence of dehydration. We are providing her with Rocephin 1 g intravenously in the hospital emergency department. I will send a prescription for Zofran and Keflex as an outpatient. Counseled pt/family regarding: lab results, diagnosis, need for follow-up Medical Desision Making - Independent Historian Additional History obtained from: Mother - Diagnostic Testing Diagnostic test were ordered, analyzed, and reviewed by me: Yes - Risk of complications The pt has a mod risk of morbidity or mortality based on: Need for prescription drug management - Departure Departure Disposition: Home Clinical Impression: Nausea and vomiting during , Vaginal itching, UTI (urinary tract infection) during Condition: Stable Critical Care Time: No Referrals: TESSA RAMOS MD [Primary Care Provider] - Follow up/PCP as directed Additional Instructions: contact your aquatic physiotherapist's office tomorrow, 11/24/2022 to obtain a follow-up appointment for further evaluation and management of your vomiting and vaginal itching. May use [id number] vaginal cell as instructed on the package. Drink plenty of clear liquids before advancing diet. Avoid fatty greasy spicy foods Prescriptions: Ondansetron ODT 4 MG [Zofran Odt 4 mg] 4 mg PO Q6H PRN PRN #10 tablet PRN Reason: Vomiting Cephalexin Mh 500 mg [Keflex 500 mg] 500 mg PO TID #21 cap
[2022-11-23] MEDS ORDERED: Zofran 4 MG/2 ML VIAL IV ONE (16:21)
[2022-11-23] MEDS ORDERED: Sodium Chloride 0.9% 1000 ML 1,000 ML IV STA (16:21)
[2022-11-23] MEDS ORDERED: Sodium Chloride 0.9% 1000 ML 1,000 ML ONE (16:28)
[2022-11-23] MEDS ORDERED: Zofran 4 MG/2 ML VIAL ONE (16:28)
[2022-11-23 16:30] LABS: Absolute Neutrophil Ct (ANC) 7.51 x10^3/uL (1.4-6.9); BASOPHIL % 0.4 % (0.0-0.4); Basophil (Absolute #) 0.04 x10^3/uL (0-0.4); Eosinophil % 0.6 % (0.00-5.0); Eosinophil (Absolute #) 0.06 x10^3/uL (0-0.5); Hematocrit 39.5 % (35-47); Hemoglobin 13.7 g/dL (12.0-16.0); IMMATURE GRAN # 0.04 x10^3u/L (0.00-0.03); IMMATURE GRAN % 0.4 % (0.00-0.4); Lymphocyte (Absolute #) 2.05 x10^3/uL (1.0-4.6); Lymphocytes % 19.4 % (24.0-44.0); Mean Cell Volume 86.4 fL (78-100); Mean Corpuscular Hgb Concent. 34.7 g/dL (32-36); Mean Platelet Volume 10.7 fL (7.5-11.0); Monocyte (Absolute #) 0.88 x10^3/uL (0.0-1.3); Monocytes % 8.3 % (0.0-12.0); Neutrophil % 70.9 % (36.0-66.0); Platelet Count 286 x10^3/uL (150-450); Red Blood Count 4.57 x10^6/uL (4.1-5.4); Red Cell Distribution Width 13.9 % (11.5-14.0); White Blood Count 10.6 x10^3/uL (4.0-10.5)
[2022-11-23 16:34] LABS: ALBUMIN 4.1 g/dL (3.5-5.0); ALKALINE PHOSPHATASE 50 U/L (38-126); AMYLASE 58 U/L (30-110); ANION GAP 13.5 MEQ/L (5-15); BLOOD UREA NITROGEN 5 mg/dL (7-17); CHLORIDE 105 mmol/L (98-107); Calcium 8.7 mg/dL (8.4-10.2); Carbon Dioxide 22 mmol/L (22-30); Creatinine 1 0.42 mg/dL (0.52-1.04); EST GLOMERULAR FILTRATION RATE > 60.0 ML/MIN; Glucose 84 mg/dL (74-106); LIPASE 38 U/L (23-300); Potassium 3.4 mmol/L (3.5-5.1); SGOT/AST 41 U/L (14-36); SGPT/ALT 40 U/L (0-35); SODIUM 137 mmol/L (137-145); Total Protein 7.4 g/dL (6.3-8.2)
[2022-11-23] MEDS ORDERED: Sodium Chloride 0.9% 500 ML 500 ML IV ONE ×2 (17:21→17:24)
[2022-11-23 18:38] LABS: Appearance Cloudy (Clear); Bilirubin Moderate (Negative); Blood Negative (Negative); Epithelial Cells Moderate /HPF (None Seen); Glucose, Urine Negative (Negative); Hyaline Casts NONE SEEN /LPF (0-2); Ketones 80 (Negative); Leukocyte Esterase Small (Negative); Nitrite Negative (Negative); Protein,Urine Dip 30 (Negative); RBC 0-2 /HPF (0-5); Specific Gravity >=1.030 (1.005-1.030)
[2022-11-23 18:50] LABS: Bacteria Moderate /HPF (None Seen)
[2022-11-23 18:51] LABS: ADD URINE CULTURE? YES (NO)
[2022-11-23] MEDS: ROCEPHIN 1 Gm-D5w 50 ml Bag** 1 G/50 ML IVPB IV STA ×2 (19:27→19:32)
[2022-11-23] MEDS ORDERED: ROCEPHIN 1 Gm-D5w 50 ml Bag** 0 G/0 ML IVPB IV ONE (19:27)
[2022-11-23] MEDS ORDERED: KEFLEX 500 MG PO ONE (19:31)
[2022-11-23] MEDS ORDERED: KEFLEX 500 MG ONE (19:33)
[2022-11-23 19:40] VITALS: BP 114/73; PULSE 72; O2SAT 96
== END 2022-11-23 19:46 | disposition home or self-care (01) ==
LOC: ED 15:41
DX: O21.9 Vomiting of pregnancy, unspecified (principal); O23.42 Unspecified infection of urinary tract in pregnancy, second trimester; N39.0 Urinary tract infection, site not specified; Z3A.17 17 weeks gestation of pregnancy; L29.2 Pruritus vulvae; Z72.0 Tobacco use
CPT/HCPCS: 36000; 36415; 80053; 81001; 82150; 83690; 85025; 87086; 96374; 99284; J0696; J2405; A9270-GY

== ENCOUNTER 2023-03-19 10:18 | Observation (INO) | payer MEDICAID ==
[2023-03-19 12:07] VITALS: BP 120/73; PULSE 92; RESP 18; TEMP 97.9; O2SAT 98
[2023-03-19 13:32] LABS: ALBUMIN 3.4 g/dL (3.5-5.0); ALKALINE PHOSPHATASE 86 U/L (38-126); ANION GAP 12.9 MEQ/L (5-15); BLOOD UREA NITROGEN 3 mg/dL (7-17); CHLORIDE 108 mmol/L (98-107); Calcium 8.4 mg/dL (8.4-10.2); Carbon Dioxide 18 mmol/L (22-30); Creatinine 1 0.35 mg/dL (0.52-1.04); EST GLOMERULAR FILTRATION RATE > 60.0 ML/MIN; Glucose 97 mg/dL (74-106); Potassium 3.7 mmol/L (3.5-5.1); SGOT/AST 19 U/L (14-36); SGPT/ALT 17 U/L (0-35); SODIUM 135 mmol/L (137-145); Total Protein 6.2 g/dL (6.3-8.2)
[2023-03-19 14:11] LABS: Amphetamine,Urine NEGATIVE (NEGATIVE); Barbiturate,Urine NEGATIVE (NEGATIVE); Benzodiazepine,Urine NEGATIVE (NEGATIVE); Cocaine,Urine NEGATIVE (NEGATIVE); Methadone,Urine NEGATIVE (NEGATIVE); Opiate,Urine NEGATIVE (NEGATIVE); PCP,Urine NEGATIVE (NEGATIVE); THC,Urine NEGATIVE (NEGATIVE)
== END 2023-03-19 13:15 | disposition home or self-care (01) ==
LOC: WHC 10:18 → OB 11:21
PROVIDERS: ADMIT Obstetrics & Gynecology; ATTEND Obstetrics & Gynecology
DX: Z34.83 Encounter for supervision of other normal pregnancy, third trimester (principal); Z3A.34 34 weeks gestation of pregnancy; Z72.0 Tobacco use
CPT/HCPCS: 36415; 59025; 59426; 80053; 80307; 81002; 83036; 85018; 99213; G0378

== ENCOUNTER 2023-04-13 07:53 | Inpatient (IN) | payer MEDICAID ==
[2023-04-13] MEDS ORDERED: Nubain 10 MG/ML IV PRN (16:00)
[2023-04-13] MEDS ORDERED: TYLENOL EXTRA STRENGTH 500 MG PO PRN (16:00)
[2023-04-13] MEDS ORDERED: Zofran 4 MG/2 ML VIAL IV PRN (16:17)
[2023-04-13 16:26] LABS: Hematocrit 42.4 % (35-47); Hemoglobin 14.4 g/dL (12.0-16.0); Mean Cell Volume 89.8 fL (78-100); Mean Corpuscular Hemoglobin 30.5 pg (26-32); Mean Platelet Volume 10.5 fL (7.5-11.0); Platelet Count 328 x10^3/uL (150-450); Red Blood Count 4.72 x10^6/uL (4.1-5.4); Red Cell Distribution Width 13.4 % (11.5-14.0); White Blood Count 15.7 x10^3/uL (4.0-10.5)
[2023-04-13] MEDS: CYTOTEC PO SCH ×3 (16:44→22:01)
[2023-04-13 16:53] LABS: Appearance Cloudy (Clear); Bacteria Moderate /HPF (None Seen); Bilirubin Small (Negative); Blood Negative (Negative); Epithelial Cells Moderate /HPF (None Seen); Glucose, Urine Negative (Negative); Ketones Negative (Negative); Leukocyte Esterase Small (Negative); Nitrite Negative (Negative); Protein,Urine Dip 30 (Negative); RBC 0-2 /HPF (0-5); Specific Gravity >=1.030 (1.005-1.030)
[2023-04-13 16:54] LABS: ADD URINE CULTURE? YES (NO); Hyaline Casts None Seen /LPF (0-2)
[2023-04-13 17:08] LABS: Amphetamine,Urine NEGATIVE (NEGATIVE); Barbiturate,Urine NEGATIVE (NEGATIVE); Benzodiazepine,Urine NEGATIVE (NEGATIVE); Cocaine,Urine NEGATIVE (NEGATIVE); Methadone,Urine NEGATIVE (NEGATIVE); Opiate,Urine NEGATIVE (NEGATIVE); PCP,Urine NEGATIVE (NEGATIVE); THC,Urine NEGATIVE (NEGATIVE)
[2023-04-13 17:19] LABS: ABO TYPING A; Antibody Screen NEGATIVE (NEGATIVE); RH TYPING NEGATIVE
[2023-04-13 17:25] LABS: ATYPICAL LYMPHS 2 %; Lymphocytes 25 % (24-44); Monocyte 5 % (0.0-12.0); Neutrophils 68 % (36.0-66.0); Total Cells Counted 100
[2023-04-13 17:26] LABS: Platelet Estimate NORMAL (NORMAL)
[2023-04-13] MEDS ORDERED: Lactated Ringers 1,000 ML IV ONE (23:24)
[2023-04-14] MEDS ORDERED: CLINDAMYCIN-D5W 900 MG/50 ML*** 900 MG/50 ML BAG IV SCH
[2023-04-14] MEDS ORDERED: OMNIPEN 2 GM*** 2 G in Sodium Chloride 100ML MINI-BAG PLUS 100 ML IV ONE ×2
[2023-04-14] MEDS: CYTOTEC PO SCH ×4 (02:15→06:00)
[2023-04-14] MEDS: OMNIPEN 1 GM*** 1 GM in Sodium Chloride 100ML MINI-BAG PLUS 100 ML IV SCH ×3 (04:00→12:30)
[2023-04-14] MEDS ORDERED: Ephedrine Sulfate 50 MG/ML IV PRN (06:00)
[2023-04-14] MEDS ORDERED: Lactated Ringers 1,000 ML IV ONE (06:00)
[2023-04-14] MEDS ORDERED: FENTANYL 2 MCG-BUPIV 0.125%-NS 250 ML Epidur 250 ML EPIDURAL SCH (06:00)
[2023-04-14] MEDS ORDERED: XYLOCAINE 1% HCL 20 ML MDV IJ PRN (06:00)
[2023-04-14] MEDS ORDERED: PITOCIN 30 UNITS/ LR 500 ML 30 UNITS/500 ML PLAST..BAG IV SCH ×2 (07:00→09:00)
[2023-04-14] MEDS ORDERED: Lactated Ringers 1,000 ML IV SCH (08:00)
[2023-04-14] MEDS ORDERED: XYLOCAINE 2%/Epi 1:200000 20ML VIAL MPF ONE (11:48)
[2023-04-14] MEDS ORDERED: DEXMEDETOMIDINE 80 MCG/20ML-NS IV ONE (11:48)
[2023-04-14 15:32] LABS: Appearance Clear (Clear); Bilirubin Negative (Negative); Blood Negative (Negative); Glucose, Urine Negative (Negative); Ketones Negative (Negative); Leukocyte Esterase Negative (Negative); Nitrite Negative (Negative); Protein,Urine Dip Trace (Negative); Specific Gravity 1.025 (1.005-1.030)
[2023-04-14 15:51] LABS: Bacteria None Seen /HPF (None Seen); Epithelial Cells Rare /HPF (None Seen); RBC 0-2 /HPF (0-5); WBC 0-2 /HPF (0-5)
[2023-04-14 16:03] LABS: Hyaline Casts None Seen /LPF (0-2)
[2023-04-14 16:04] LABS: ADD URINE CULTURE? ORDERED SEPARATELY (NO)
[2023-04-14] MEDS ORDERED: MOTRIN 400 MG PO PRN (20:34)
[2023-04-14] MEDS ORDERED: Dulcolax 10 MG SUPP PR PRN (20:34)
[2023-04-14] MEDS ORDERED: Anucort-HC SUPPOSITORY PR PRN (20:34)
[2023-04-14] MEDS ORDERED: Dermoplast Spray TP PRN (20:34)
[2023-04-14] MEDS ORDERED: CORTISONE 1% CREAM TP PRN (20:34)
[2023-04-14] MEDS ORDERED: TUCKS TP PRN (20:40)
[2023-04-14] MEDS: Docusate Sodium 100 MG PO SCH (21:26)
[2023-04-15 07:12] LABS: Absolute Neutrophil Ct (ANC) 13.53 x10^3/uL (1.4-6.9); BASOPHIL % 0.4 % (0.0-0.4); Basophil (Absolute #) 0.08 x10^3/uL (0-0.4); Eosinophil % 0.3 % (0.00-5.0); Eosinophil (Absolute #) 0.06 x10^3/uL (0-0.5); Hematocrit 41.5 % (35-47); Hemoglobin 13.6 g/dL (12.0-16.0); IMMATURE GRAN # 0.07 x10^3u/L (0.00-0.03); IMMATURE GRAN % 0.4 % (0.00-0.4); Lymphocyte (Absolute #) 4.36 x10^3/uL (1.0-4.6); Lymphocytes % 22.7 % (24.0-44.0); Mean Cell Volume 91.8 fL (78-100); Mean Corpuscular Hemoglobin 30.1 pg (26-32); Mean Corpuscular Hgb Concent. 32.8 g/dL (32-36); Mean Platelet Volume 10.7 fL (7.5-11.0); Monocytes % 5.7 % (0.0-12.0); Neutrophil % 70.5 % (36.0-66.0); Platelet Count 274 x10^3/uL (150-450); Red Blood Count 4.52 x10^6/uL (4.1-5.4); White Blood Count 19.2 x10^3/uL (4.0-10.5)
--- NOTE | 2023-04-15 07:59 | PCM.NOTE ---
Date and Time: 04/15/23 0758 Subjective Assessment: ppd 1 sp pt resting in bed able to ambulate and tolerate diet vss afebrile abd; soft uterus; firm lochia; mild hgb; 12 a/p sp ppd 1 anticipate dc home tomorrow pt desires to be discharged home today should fu in office in 3 wks OBJECTIVE DATA Vital Signs: Vital Signs - 24 hr Temp Pulse Resp BP BP BP Pulse Ox 04/15/23 02:00 98.7 F 85 18 152/61 99 04/14/23 20:30 99.0 F 92 H 20 131/66 98 04/14/23 19:00 98.0 F 101 H 16 133/83 136/63 94 L 04/14/23 18:00 98.0 F 101 H 16 135/78 96 04/14/23 17:30 97.6 F 91 H 16 122/58 96 04/14/23 17:00 97.7 F 97 H 16 128/61 90 L 04/14/23 16:45 97.7 F 97 H 16 126/68 93 L 04/14/23 16:30 97.7 F 101 H 18 117/62 97 04/14/23 16:15 97.7 F 141 H 18 138/93 97 04/14/23 15:00 97 H 16 126/68 94 L 04/14/23 12:45 94 H 18 113/62 96 04/14/23 12:30 94 H 18 113/62 96 04/14/23 12:15 94 H 18 116/56 96 04/14/23 11:00 101 H 18 130/77 96 04/14/23 10:45 108 H 18 130/77 96 04/14/23 10:30 108 H 18 130/77 96 04/14/23 10:15 86 18 130/77 97 04/14/23 10:00 97.7 F 91 H 18 119/55 130/77 97 04/14/23 09:45 81 18 124/56 94 L 04/14/23 09:30 82 18 124/56 93 L 04/14/23 09:15 80 18 100/55 95 04/14/23 09:00 108 H 18 130/77 96 04/14/23 08:45 91 H 18 119/55 97 04/14/23 08:30 88 18 105/51 97 04/14/23 08:15 98.6 F 104 H 18 116/63 96 04/14/23 08:00 98.6 F 104 H 18 116/63 96 Pain Assessment - Last Documented Pain Intensity [Lower] 0 Pain Intensity 0 Pain Scale Used 0-10 Pain Scale Intake and Output: Intake & Output 04/12/23 04/13/23 04/14/23 04/15/23 11:59 11:59 11:59 11:59 Intake Total 3490 1750 Output Total 4 Balance 3486 1750 Weight 91.172 kg Lab Results: Lab Results-Last 24 Hours 04/14/23 04/15/23 Range/Units 12:00 07:03 WBC 19.2 H (4.0-10.5) x10^3/uL RBC 4.52 (4.1-5.4) x10^6/uL Hgb 13.6 (12.0-16.0) g/dL Hct 41.5 (35-47) % MCV 91.8 (78-100) fL MCH 30.1 (26-32) pg MCHC 32.8 (32-36) g/dL RDW 14.0 (11.5-14.0) % Plt Count 274 (150-450) x10^3/uL MPV 10.7 (7.5-11.0) fL Gran % 70.5 H (36.0-66.0) % Immature Gran % (Auto) 0.4 (0.00-0.4) % Nucleat RBC Rel Count 0.0 (0.00-0.1) % Eos # (Auto) 0.06 (0-0.5) x10^3/uL Immature Gran # (Auto) 0.07 H (0.00-0.03) x10^3u/L Absolute Lymphs (auto) 4.36 (1.0-4.6) x10^3/uL Absolute Monos (auto) 1.10 (0.0-1.3) x10^3/uL Absolute Nucleated RBC 0.00 (0.00-0.01) x10^3u/L Lymphocytes % 22.7 L (24.0-44.0) % Monocytes % 5.7 (0.0-12.0) % Eosinophils % 0.3 (0.00-5.0) % Basophils % 0.4 (0.0-0.4) % Absolute Granulocytes 13.53 H (1.4-6.9) x10^3/uL Basophils # 0.08 (0-0.4) x10^3/uL Urine Color Dark Yellow A (Yellow) Urine Appearance Clear (Clear) Urine pH 7.0 (4.6-8.0) Ur Specific [place] 1.025 (1.005-1.030) Urine Protein Trace A (Negative) Urine Glucose (UA) Negative (Negative) mg/dL Urine Ketones Negative (Negative) Urine Blood Negative (Negative) Urine Nitrite Negative (Negative) Urine Bilirubin Negative (Negative) Urine Urobilinogen 1.0 A (0.2) mg/dL Ur Leukocyte Esterase Negative (Negative) U Hyaline Cast (Auto) None Seen (0-2) /LPF Urine Microscopic RBC 0-2 (0-5) /HPF Urine Microscopic WBC 0-2 (0-5) /HPF Ur Epithelial Cells Rare (None Seen) /HPF Urine Bacteria None Seen (None Seen) /HPF Urine Culture Reflexed ORDERED SEPARATELY (NO) Assessment/Plan (1) growth restriction Current Visit: Yes Status: Acute (2) Vaginal delivery Current Visit: Yes Status: Acute Code(s): O80 - ENCOUNTER FOR FULL-TERM UNCOMPLICATED DELIVERY
--- NOTE | 2023-04-15 08:02 | PCM.DS ---
Discharge Summary Date of Admission: 04/14/23 07:53 Admitting Physician: DANIELLE HORNER DO Consults: Consults on Case 04/13/23 16:00 Notify Anesthesia Provider PRN 04/14/23 16:47 Navigation ONCE 04/14/23 20:37 Notify Physician ROUTINE Primary Care Provider: CURTIS JEAN NP Allergies Allergies codeine Allergy (Verified 11/23/22 16:14) Hospital Summary - Hospital Course Hospital Course: pt admitted on april 13 at 38 wks gestation for induction secondary to severe iugr as recommended by [facility] and was started with valencia induction and oral cytotec with subsequent pitocin on apr 14 and then delivered live baby girl without complication via on apr 14. during period did well able to ambulate and tolerate diet and at this time desires to be discharged home. stable hgb at 12 and was advised to fu in office in 3 wks for care. all questions answered to her satisfaction and at this time stable for discharge. - Vitals & Intake/Output Vital Signs: Vital Signs Temperature 98.7 F 04/15/23 02:00 Pulse Rate 85 04/15/23 02:00 Respiratory Rate 18 04/15/23 02:00 Blood Pressure 152/61 04/15/23 02:00 O2 Sat by Pulse Oximetry 99 04/15/23 02:00 Intake & Output: Intake & Output 04/12/23 04/13/23 04/14/23 04/15/23 11:59 11:59 11:59 11:59 Intake Total 3490 1750 Output Total 4 Balance 3486 1750 Weight 91.172 kg - Lab Result Diagrams: 04/15/23 07:03 Lab Results-Last 24 Hrs: Lab Results-Last 24 Hours 04/14/23 04/15/23 Range/Units 12:00 07:03 WBC 19.2 H (4.0-10.5) x10^3/uL RBC 4.52 (4.1-5.4) x10^6/uL Hgb 13.6 (12.0-16.0) g/dL Hct 41.5 (35-47) % MCV 91.8 (78-100) fL MCH 30.1 (26-32) pg MCHC 32.8 (32-36) g/dL RDW 14.0 (11.5-14.0) % Plt Count 274 (150-450) x10^3/uL MPV 10.7 (7.5-11.0) fL Gran % 70.5 H (36.0-66.0) % Immature Gran % (Auto) 0.4 (0.00-0.4) % Nucleat RBC Rel Count 0.0 (0.00-0.1) % Eos # (Auto) 0.06 (0-0.5) x10^3/uL Immature Gran # (Auto) 0.07 H (0.00-0.03) x10^3u/L Absolute Lymphs (auto) 4.36 (1.0-4.6) x10^3/uL Absolute Monos (auto) 1.10 (0.0-1.3) x10^3/uL Absolute Nucleated RBC 0.00 (0.00-0.01) x10^3u/L Lymphocytes % 22.7 L (24.0-44.0) % Monocytes % 5.7 (0.0-12.0) % Eosinophils % 0.3 (0.00-5.0) % Basophils % 0.4 (0.0-0.4) % Absolute Granulocytes 13.53 H (1.4-6.9) x10^3/uL Basophils # 0.08 (0-0.4) x10^3/uL Urine Color Dark Yellow A (Yellow) Urine Appearance Clear (Clear) Urine pH 7.0 (4.6-8.0) Ur Specific [place] 1.025 (1.005-1.030) Urine Protein Trace A (Negative) Urine Glucose (UA) Negative (Negative) mg/dL Urine Ketones Negative (Negative) Urine Blood Negative (Negative) Urine Nitrite Negative (Negative) Urine Bilirubin Negative (Negative) Urine Urobilinogen 1.0 A (0.2) mg/dL Ur Leukocyte Esterase Negative (Negative) U Hyaline Cast (Auto) None Seen (0-2) /LPF Urine Microscopic RBC 0-2 (0-5) /HPF Urine Microscopic WBC 0-2 (0-5) /HPF Ur Epithelial Cells Rare (None Seen) /HPF Urine Bacteria None Seen (None Seen) /HPF Urine Culture Reflexed ORDERED SEPARATELY (NO) Micro Results-Entire Visit: Microbiology 04/13/23 15:45 Urine Culture - Preliminary Clean Catch Midstream NO GROWTH TO DATE Final Diagnosis/Problem List - Final Discharge Diagnosis/Problem (1) growth restriction Current Visit: Yes Status: Acute (2) Vaginal delivery Current Visit: Yes Status: Acute Code(s): O80 - ENCOUNTER FOR FULL-TERM UNCOMPLICATED DELIVERY - Discharge Disposition: Home, Self-Care Condition: Stable Prescriptions: No Action No122/Iron/Folic Acid [ Multi Tablet] 1 tab PO HS Ondansetron ODT 4 MG [Zofran Odt 4 mg] 4 mg PO Q6H PRN PRN #10 tablet PRN Reason: Vomiting Haloperidol [Haldol] 5 mg PO HS Aspirin EC 81 mg [Ecotrin 81 mg] 81 mg PO DAILY Follow up with: CURTIS JEAN NP [Primary Care Provider] - DANIELLE HORNER DO [ACTIVE STAFF] - 3 weeks
[2023-04-15] MEDS ORDERED: Rhogam Plus 300 MCG IM ONE (09:41)
[2023-04-15] MEDS ORDERED: M-M-R II Vaccine With Diluent SQ ONE (10:00)
[2023-04-15] MEDS ORDERED: Adacel Vial IM ONE (10:00)
[2023-04-15] MEDS: Docusate Sodium 100 MG PO SCH ×3 (11:48→21:17)
[2023-04-15] MEDS: TYLENOL EXTRA STRENGTH 500 MG PO PRN (21:19)
[2023-04-16 02:10] VITALS: O2SAT 98
[2023-04-16 09:31] VITALS: BP 137/79; PULSE 102; RESP 18; TEMP 97.6
[2023-04-16] MEDS: Docusate Sodium 100 MG PO SCH (09:40)
[2023-04-16] MEDS: TYLENOL EXTRA STRENGTH 500 MG PO PRN ×2 (09:40→13:42)
== END 2023-04-16 14:50 | disposition home or self-care (01) | DRG 807 ==
LOC: OB 07:53 → OBSVTOIN 04-14 07:53
PROVIDERS: ADMIT Obstetrics & Gynecology; ATTEND Obstetrics & Gynecology
PROC: 10E0XZZ Delivery of Products of Conception, External Approach (ICD-10-PCS; principal; 2023-04-14)
PROC: 0HQ9XZZ Repair Perineum Skin, External Approach (ICD-10-PCS; 2023-04-14)
DX: O70.0 First degree perineal laceration during delivery (principal); Z37.0 Single live birth; O36.5930 Maternal care for other known or suspected poor fetal growth, third trimester, not applicable or unspecified; Z3A.38 38 weeks gestation of pregnancy; Z20.828 Contact with and (suspected) exposure to other viral communicable diseases
CPT/HCPCS: 36415; 59409; 80307; 81001; 85025; 85461; 86850; 86900; 86901; 87086; 90471; 96372; G0378; G0379; 59426; 81002; 90715; 99213; J0290; J2590; J2790; A9270-GY

== ENCOUNTER 2023-07-21 18:01 | Emergency (ER) | payer OTHER ==
[2023-07-21 18:21] VITALS: RESP 18; O2SAT 96
--- NOTE | 2023-07-21 18:36 | ERPHSYRPT ---
- History of Present Illness Source: patient Exam Limitations: no limitations Patient Subjective Stated Complaint: Nexplannon placed 3 weeks ago and has had 2 positive test tonight. Wanting a yes or no answer on . Triage Nursing Assessment: Patient presents asking to have a test done to confirm . States had the Nexplannon implanted 3 weeks ago and has now had 2 positive test at home. LMP: 06/30/2023. 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 Timing/Duration: today Hx Tetanus, Diphtheria Vaccination/Date Given: No Hx Influenza Vaccination/Date Given: Yes Hx Pneumococcal Vaccination/Date Given: No Immunizations Up to Date: Yes <SANDIP BARRERA - Last Filed: 07/21/23 18:34> <PHILL GURROLA - Last Filed: 07/21/23 19:17> - History of Present Illness Time Seen by Provider: 07/21/23 18:20 Physician History: Patient is a 23-year-old white female 2 para 1 who 3 weeks ago had a Nexplanon implantation in her left arm. Strangely enough because her got heartburn and she got heartburn and they suspected she might be and they have taken 2 home test that were positive. She is interested in confirmation. (SANDIP BARRERA) Allergies/Adverse Reactions: codeine Allergy (Severe, Verified 07/21/23 18:07) hallucinate Home Medications: Haloperidol [Haldol] 5 mg PO HS 04/13/23 [History] Travel Risk - International Travel Have you traveled outside of the country in past 3 weeks: No - Coronavirus Screening Are you exhibiting any of the following symptoms?: No Close contact with a COVID-19 positive Pt in past 14-21 Days: No - Vaccine Status Have you recieved a Covid-19 vaccination: Yes Purification Operator: Moderna - Vaccination Dates Date of 2cond Vaccination (if applicable): na <SANDIP BARRERA - Last Filed: 07/21/23 18:34> - Review of Systems Constitutional: No Fever, No Chills Eyes: No Symptoms Ears, Nose, & Throat: No Symptoms Respiratory: No Cough, No Dyspnea Cardiac: No Chest Pain, No Edema, No Syncope Abdominal/Gastrointestinal: No Abdominal Pain, No Nausea, No Vomiting, No Diarrhea Genitourinary Symptoms: No Dysuria Musculoskeletal: No Back Pain, No Neck Pain Skin: No Rash Neurological: No Dizziness, No Focal Weakness, No Sensory Changes Psychological: No Symptoms Endocrine: No Symptoms All Other Systems: Reviewed and Negative <SANDIP BARRERA - Last Filed: 07/21/23 18:34> - Past Medical History Pertinent Past Medical History: Yes Neurological History: No Pertinent History ENT History: No Pertinent History Cardiac History: No Pertinent History Respiratory History: Asthma, Bronchitis Endocrine Medical History: No Pertinent History Musculoskeletal History: Other GI Medical History: Gallbladder Disease History: No Pertinent History Psycho-Social History: Bipolar, Depression Female Reproductive Disorders: No Pertinent History Other Medical History: BIPOLAR DEPRESSION, personality disorder. PATIENT STATES ASTHMA AND BRONCHITIS WERE A CHILD. - Past Surgical History Past Surgical History: Yes Neuro Surgical History: No Pertinent History Cardiac: No Pertinent History Respiratory: No Pertinent History Gastrointestinal: Cholecystectomy Genitourinary: No Pertinent History Musculoskeletal: No Pertinent History Female Surgical History: No Pertinent History Other Surgical History: wisdom teeth 1 week ago - Social History Smoking Status: Current every day smoker How long have you smoked: 10yrs Exposure to second hand smoke: Yes Drug Use: none Patient Lives Alone: No - Female History Hx Last Menstrual Period: 06/30/2023 Hx Now: Yes Gestational Age: . <SANDIP BARRERA - Last Filed: 07/21/23 18:34> - Physical Exam General Appearance: no apparent distress, alert Eye Exam: PERRL/EOMI, eyes nml inspection Ears, Nose, Throat Exam: normal ENT inspection, TMs normal, pharynx normal, moist mucous membranes Neck Exam: normal inspection, non-tender, supple, full range of motion Respiratory Exam: normal breath sounds, lungs clear, No respiratory distress Cardiovascular Exam: regular rate/rhythm, normal heart sounds, normal peripheral pulses Gastrointestinal/Abdomen Exam: soft, normal bowel sounds, No tenderness, No mass Back Exam: normal inspection, normal range of motion, No CVA tenderness, No vertebral tenderness Extremity Exam: normal inspection, normal range of motion, pelvis stable Neurologic Exam: alert, oriented x 3, cooperative, normal mood/affect, nml cerebellar function, nml station & gait, sensation nml, No motor deficits Skin Exam: normal color, warm, dry, No rash Lymphatic Exam: No adenopathy SpO2: 96 <SANDIP BARRERA - Last Filed: 07/21/23 18:34> - Nursing Vital Signs Nursing Vital Signs: Initial Vital Signs Pulse Rate 112 H 07/21/23 18:10 Respiratory Rate 18 07/21/23 18:10 Blood Pressure 130/87 07/21/23 18:10 O2 Sat by Pulse Oximetry 96 07/21/23 18:10 Pain Scale Pain Intensity 0 - Course Nursing assessment & vital signs reviewed: Yes <SANDIP BARRERA - Last Filed: 07/21/23 18:34> Ordered Tests: Active Orders 24 hr Category Date Time Status HCG QUALITATIVE, SERUM Stat Lab 07/21/23 18:50 Completed Lab/Rad Data: Laboratory Results 07/21/23 Range/Units 18:50 Serum HCG, Qual POSITIVE (NEGATIVE) - Progress Progress: unchanged <SANDIP BARRERA - Last Filed: 07/21/23 18:34> - Progress Counseled pt/family regarding: lab results, diagnosis, need for follow-up <PHILL GURROLA - Last Filed: 07/21/23 19:17> - Progress Progress Note: 07/21/23 19:14 The patient care of this patient was transferred to [facility] at shift change. The information provided to me by Dr. Barrera is that this patient simply wanted confirmation as to whether or not the 2 home test, which both stated positive, was actually true. Approximately 3 weeks ago the patient had a Nexplanon placed and she wanted confirmation with a serum hCG. I interpreted the laboratory data results. The serum test is positive. (PHILL GURROLA) Medical Desision Making - Diagnostic Testing Diagnostic test were ordered, analyzed, and reviewed by me: Yes - Risk of complications Minimal Risk: Minimal risk of morbidity <PHILL GURROLA - Last Filed: 07/21/23 19:17> <SANDIP BARRERA - Last Filed: 07/21/23 18:34> - Departure Departure Disposition: Home Critical Care Time: No <PHILL GURROLA - Last Filed: 07/21/23 19:17> - Departure Clinical Impression: confirmed by positive blood test Condition: Stable Referrals: CURTIS JEAN NP [Primary Care Provider] - Follow up/PCP as directed Additional Instructions: Call your primary care provider and the individual who placed your Nexplanon tomorrow, 07/22/2023, to discuss the positive serum test results and provide you with further instructions/management.
[2023-07-21 19:12] LABS: HCG SERUM TEST POSITIVE (NEGATIVE)
[2023-07-21 19:29] VITALS: BP 131/77; PULSE 72; TEMP 98.8
== END 2023-07-21 19:35 | disposition home or self-care (01) ==
LOC: ED 18:01
DX: Z32.01 Encounter for pregnancy test, result positive (principal); Z79.899 Other long term (current) drug therapy; Z72.0 Tobacco use
CPT/HCPCS: 36415; 84703; 99282

== ENCOUNTER 2024-01-18 19:42 | Emergency (ER) | payer OTHER ==
[2024-01-18 20:08] VITALS: TEMP 98.1; O2SAT 99
--- NOTE | 2024-01-18 20:41 | ERPHSYRPT ---
- History of Present Illness Time Seen by Provider: 01/18/24 19:55 Source: patient Exam Limitations: no limitations Patient Subjective Stated Complaint: pt states she slipped on wet floor and fell onto her lt knee. Triage Nursing Assessment: pt alert and oriented, answers questions approp. pt arrive per wheelchair and transfers to stretcher per self. respirations nonlabored. skin warm and dry. pt reports tenderness to lt knee. no swelling or redness noted to lt knee Physician History: Insulin 23-year-old female currently 31 weeks presents to our ED via EMS for evaluation of left knee pain. Patient states she was at a [employer] and [employer]. Patient reports slipping on a carpet. Patient believes it was a wet floor. Patient denies injury to her gravid abdomen. No vaginal discharge. Pain at the left knee described as an ache that is localized. No radiation. Pain worse with movement and palpation pain improved with rest. No BHT or LOC no neck pain. Cervical spine cleared clinically. Patient voices no other complaints or concerns at this time. Portions of this note were created with voice recognition technology. There may be grammatical, spelling, punctuation or sound alike errors Timing/Duration: today Severity: moderate Modifying Factors: Improves With: nothing Associated Symptoms: denies symptoms Allergies/Adverse Reactions: codeine Allergy (Severe, Verified 07/21/23 18:07) hallucinate Home Medications: Haloperidol [Haldol] 5 mg PO HS 04/13/23 [History] Hx Tetanus, Diphtheria Vaccination/Date Given: Yes Hx Influenza Vaccination/Date Given: Yes Hx Pneumococcal Vaccination/Date Given: No Immunizations Up to Date: Yes Travel Risk - International Travel Have you traveled outside of the country in past 3 weeks: No - Emerging Infectious Disease Are you exhibiting symptoms associated with any current EIDs: No - Review of Systems Constitutional: No Symptoms, No Fever, No Chills Eyes: No Symptoms Ears, Nose, & Throat: No Symptoms Respiratory: No Symptoms, No Cough, No Dyspnea Cardiac: No Symptoms, No Chest Pain, No Edema, No Syncope Abdominal/Gastrointestinal: No Symptoms, No Abdominal Pain, No Nausea, No Vomiting, No Diarrhea Genitourinary Symptoms: No Symptoms, No Dysuria Musculoskeletal: No Symptoms, No Back Pain, No Neck Pain Skin: No Symptoms, No Rash Neurological: No Symptoms, No Dizziness, No Focal Weakness, No Sensory Changes Psychological: No Symptoms Endocrine: No Symptoms Hematologic/Lymphatic: No Symptoms Immunological/Allergic: No Symptoms All Other Systems: Reviewed and Negative - Past Medical History Pertinent Past Medical History: Yes Neurological History: No Pertinent History ENT History: No Pertinent History Cardiac History: No Pertinent History Respiratory History: Asthma, Bronchitis Endocrine Medical History: No Pertinent History Musculoskeletal History: Other GI Medical History: Gallbladder Disease History: No Pertinent History Psycho-Social History: Bipolar, Depression Female Reproductive Disorders: No Pertinent History Other Medical History: BIPOLAR DEPRESSION, personality disorder, schizophrenia. PATIENT STATES ASTHMA AND BRONCHITIS WERE A CHILD. - Past Surgical History Past Surgical History: Yes Neuro Surgical History: No Pertinent History Cardiac: No Pertinent History Respiratory: No Pertinent History Gastrointestinal: Cholecystectomy Genitourinary: No Pertinent History Musculoskeletal: No Pertinent History Female Surgical History: No Pertinent History Other Surgical History: wisdom teeth - Female History Hx Now: Yes Gestational Age: 30wks 5 da - Social History Smoking Status: Current every day smoker How long have you smoked: 10yrs Exposure to second hand smoke: Yes Drug Use: none Patient Lives Alone: No - Social Determinants of Health Will the patient participate in the screening: Yes Do you worry about a steady place to live?: No Do you have any problems with any of the following?: No known problems In the past 12 months,have you had to go without utilities?: No Transportation Issues: No Has anyone in your support network made you feel unsafe?: No Have you or anyone in your house had to go without enough: No - Nursing Vital Signs Nursing Vital Signs: Initial Vital Signs Temperature 98.1 F 01/18/24 19:44 Pulse Rate 108 H 01/18/24 19:44 Respiratory Rate 16 01/18/24 19:44 Blood Pressure 139/78 01/18/24 19:44 O2 Sat by Pulse Oximetry 99 01/18/24 19:44 Pain Scale Pain Intensity 4 - Physical Exam General Appearance: no apparent distress, alert Eye Exam: PERRL/EOMI, eyes nml inspection Ears, Nose, Throat Exam: normal ENT inspection, pharynx normal, moist mucous membranes Neck Exam: normal inspection, non-tender, supple, full range of motion Respiratory Exam: normal breath sounds, lungs clear, airway intact, No respiratory distress Cardiovascular Exam: regular rate/rhythm, normal heart sounds, normal peripheral pulses Gastrointestinal/Abdomen Exam: soft, normal bowel sounds, other (Gravid abdomen), No tenderness, No mass Back Exam: normal inspection, normal range of motion, No CVA tenderness, No vertebral tenderness Extremity Exam: normal inspection, normal range of motion, pelvis stable, other (Left knee extensor mechanism intact. All knee ligaments appear stable. The left lower extremity is neurovascular tact distally compartments are soft cap refill less than 2 seconds. Tenderness to palpation along the anterior aspect of the left knee. No open or draining lesions. Overlying soft ti) Neurologic Exam: alert, oriented x 3, cooperative, normal mood/affect, sensation nml, No motor deficits Skin Exam: normal color, warm, dry, No rash Lymphatic Exam: No adenopathy SpO2 Interpretation: normal SpO2: 99 O2 Delivery: Room Air - Course Nursing assessment & vital signs reviewed: Yes - Radiology Exams Knee X-ray Interpretation: Teleradiologist Report (Left knee no fracture dislocation) Ordered Tests: Active Orders 24 hr Category Date Time Status KNEE (3 VIEWS) Stat Exams 01/18/24 20:10 Taken - Progress Progress: improved Progress Note: Patient states she will be leaving AGAINST MEDICAL ADVICE. She did not want to stay for the observation time. Patient reports she has other obligations and a 9-month child at home to attend to. heart tone 136. X-ray negative for fracture dislocation however formal read of left knee x-ray pending. Patient is of sound mind. Patient is appropriate to make informed and independent medical decisions. Patient understands that leaving AGAINST MEDICAL ADVICE can result in delayed diagnosis, increased risk of morbidity, mortality, short and long-term disability including . In spite of these risks, patient has decided to leave AGAINST MEDICAL ADVICE. Patient understands that she may return to our ED at any point if she reconsiders. Patient agrees to fo llow-up with her primary care doctor within 48 hours for reevaluation. Patient voices no other complaints or concerns at this time. We will release patient AGAINST MEDICAL ADVICE per their request. Complexity problem addressed is moderate acute complicated. No critical care time. Complex of data reviewed and analyzed is moderate. Dr. Chen independently reviewed the x-ray of the left knee. Formal read pending. Risk of complication and or risk of morbidity/mortality patient management is low. Vital stable. Time spent to it discharge patient AMA is approximately 15 minutes. Plan of care established for shared decision making. No social determinants of health present impede follow-up. Portions of this note were created with voice recognition technology. There may be grammatical, spelling, punctuation or sound alike errors Patient referred to orthopedics for further evaluation of left knee. 01/18/24 20:41 Counseled pt/family regarding: lab results, diagnosis, need for follow-up, rad results - Departure Departure Disposition: AMA Clinical Impression: Fall, Left knee pain Condition: Stable Critical Care Time: No Referrals: CURTIS JEAN NP [Primary Care Provider] - Follow up/PCP as directed Additional Instructions: Discharge/Care Plan BERHANE GARCIA was seen on 01/18/24 in the Emergency Room. The patient was counseled regarding Diagnosis,Lab results, Imaging studies, need for follow up and when to return to the Emergency Room. Prescriptions given: Discharge Note I have spoken with the patient and/or caregivers. I have explained the patient's condition, diagnosis and treatment plan based on the information available to me at this time. I have answered the patient's and/or caregiver's questions and addressed any concerns. The patient and/or caregivers have as good understanding of the patient's diagnosis, condition and treatment plan as can be expected at this point. The vital signs have been stable. The patient's condition is stable and appropriate for discharge from the emergency department. The patient will pursue further outpatient evaluation with the primary care physician or other designated or consulting physician as outlined in the discharge instructions. The patient and/or caregivers are agreeable to this plan of care and follow-up instructions have been explained in detail. The patient and/or caregivers have received these instruction. The patient/and or caregivers are aware that any significant change in condition or worsening of symptoms should prompt an immediate return to this or the closest emergency department or call 911. Outpatient Orders: Ortho Referral Time Frame: 1 Day, Facility: [facility]. Hosp, Location: ORTHO CLINIC
[2024-01-18 20:54] VITALS: BP 143/75; PULSE 105; RESP 17
--- NOTE | 2024-01-19 08:38 | XRAY ---
Indication: Pain following fall. Comparison: None 3 view left knee demonstrates incidental small posterior fabella. No other bony, articular, or soft tissue abnormalities.
== END 2024-01-18 20:45 ==
LOC: ED 19:42
DX: M25.562 Pain in left knee (principal); W01.0XXA Fall on same level from slipping, tripping and stumbling without subsequent striking against object, initial encounter; Y92.512 Supermarket, store or market as the place of occurrence of the external cause; Z33.1 Pregnant state, incidental; Z79.899 Other long term (current) drug therapy; Z72.0 Tobacco use
CPT/HCPCS: 73562; 99283

== ENCOUNTER 2024-01-25 18:43 | Emergency (ER) | payer OTHER ==
[2024-01-25 19:03] VITALS: BP 118/74; TEMP 98; O2SAT 97
--- NOTE | 2024-01-25 19:14 | ERPHSYRPT ---
- History of Present Illness Time Seen by Provider: 01/25/24 19:10 Source: patient Exam Limitations: no limitations Patient Subjective Stated Complaint: pt states that she fell on 01/17 and is having rt hand pain Triage Nursing Assessment: pt ambulated into the er; pt is axo x4; c/o rt hand pain; pt states 8/10; swelling to dorsal rt hand; bruising present to dorsal rt hand; strong rt radial pulse; good cap refill to rt hand; skin PDW; no respira tory distress present; vital wnl Physician History: 23-year-old female presents to our ED for evaluation of right hand pain. Patient states that she fell on the 7 days ago. Since then she has been experiencing ongoing right hand pain. No interval trauma no fever. Pain described as an ache that is localized. Pain worse with movement and palpation. Pain improved with rest. No wrist pain no elbow or shoulder pain no other injuries reported patient otherwise feels well. She voices no other complaints or concerns at this time. Portions of this note were created with voice recognition technology. There may be grammatical, spelling, punctuation or sound alike errors Occurred: last week Method of Injury: fell Quality: constant Severity of Pain-Max: moderate Severity of Pain-Current: mild Extremities Pain Location: hand: right Modifying Factors: Improves With: movement (Movement and palpation) Associated Symptoms: none Allergies/Adverse Reactions: codeine Allergy (Severe, Verified 01/25/24 18:51) hallucinate Home Medications: Melatonin 10 mg PO HS 01/25/24 [History] Vit No.179/Iron/Folic [ Tablet] 1 each PO DAILY 01/25/24 [History] Venlafaxine HCl ER 75 mg [Effexor XR 75 MG] 150 mg PO DAILY 01/25/24 [History] Hx Tetanus, Diphtheria Vaccination/Date Given: Yes Hx Influenza Vaccination/Date Given: Yes Hx Pneumococcal Vaccination/Date Given: No Travel Risk - International Travel Have you traveled outside of the country in past 3 weeks: No - Emerging Infectious Disease Are you exhibiting symptoms associated with any current EIDs: No - Review of Systems Constitutional: No Symptoms, No Fever, No Chills Eyes: No Symptoms Ears, Nose, & Throat: No Symptoms Respiratory: No Symptoms, No Cough, No Dyspnea Cardiac: No Symptoms, No Chest Pain, No Edema, No Syncope Abdominal/Gastrointestinal: No Symptoms, No Abdominal Pain, No Nausea, No Vomiting, No Diarrhea Genitourinary Symptoms: No Symptoms, No Dysuria Musculoskeletal: No Symptoms, No Back Pain, No Neck Pain Skin: No Symptoms, No Rash Neurological: No Symptoms, No Dizziness, No Focal Weakness, No Sensory Changes Psychological: No Symptoms Endocrine: No Symptoms Hematologic/Lymphatic: No Symptoms Immunological/Allergic: No Symptoms All Other Systems: Reviewed and Negative - Past Medical History Pertinent Past Medical History: Yes Neurological History: No Pertinent History ENT History: No Pertinent History Cardiac History: No Pertinent History Respiratory History: Asthma, Bronchitis Endocrine Medical History: No Pertinent History Musculoskeletal History: Other GI Medical History: Gallbladder Disease History: No Pertinent History Psycho-Social History: Bipolar, Depression Female Reproductive Disorders: No Pertinent History Other Medical History: BIPOLAR DEPRESSION, personality disorder, schizophrenia. PATIENT STATES ASTHMA AND BRONCHITIS WERE A CHILD. - Past Surgical History Past Surgical History: Yes Neuro Surgical History: No Pertinent History Cardiac: No Pertinent History Respiratory: No Pertinent History Gastrointestinal: Cholecystectomy Genitourinary: No Pertinent History Musculoskeletal: No Pertinent History Female Surgical History: No Pertinent History Other Surgical History: wisdom teeth - Female History Hx Now: Yes Gestational Age: 31 wks - Social History Smoking Status: Current every day smoker How long have you smoked: 10yrs Exposure to second hand smoke: Yes Drug Use: none Patient Lives Alone: No - Social Determinants of Health Will the patient participate in the screening: Yes Do you worry about a steady place to live?: No Do you have any problems with any of the following?: No known problems In the past 12 months,have you had to go without utilities?: No Transportation Issues: No Has anyone in your support network made you feel unsafe?: No Have you or anyone in your house had to go without enough: No - Nursing Vital Signs Nursing Vital Signs: Initial Vital Signs Temperature 98 F 01/25/24 18:54 Pulse Rate 99 H 01/25/24 18:54 Respiratory Rate 18 01/25/24 18:54 Blood Pressure 118/74 01/25/24 18:54 O2 Sat by Pulse Oximetry 97 01/25/24 18:54 Pain Scale Pain Intensity 8 - Physical Exam General Appearance: alert Eyes, Ears, Nose, Throat Exam: moist mucous membranes Neck Exam: non-tender, supple Cardiovascular/Respiratory Exam: chest non-tender, normal breath sounds, regular rate/rhythm, no respiratory distress Abdominal Exam: non-tender, No guarding Back Exam: normal inspection, No vertebral tenderness Shoulder Exam: normal inspection, non-tender, no evidence of injury, normal ROM Elbow/Forearm Exam: normal inspection, non-tender, no evidence of injury, normal ROM Wrist Exam: normal inspection, non-tender, no evidence of injury, normal ROM Hand Exam: swelling (Mild swelling. Overlying soft tissue intact. The involved extremities neurovascular tact distally compartments are soft cap refill less than 2 seconds) Neuro/Tendon Exam: normal sensation, normal motor functions Mental Status Exam: alert, oriented x 3, cooperative Skin Exam: normal color, warm, dry SpO2 Interpretation: normal SpO2: 97 O2 Delivery: Room Air - Course Nursing assessment & vital signs reviewed: Yes - Radiology Exams Hand X-ray Interpretation: Interpreted by me (No fracture or dislocation.) Ordered Tests: Active Orders 24 hr Category Date Time Status HAND (MINIMUM 3 VIEWS) Stat Exams 01/25/24 18:54 Taken Medication Summary Discontinued Medications Generic Name Dose Route Start Last Admin Trade Name Beth PRN Reason Stop Dose Admin Acetaminophen 975 mg 01/25/24 19:15 01/25/24 19:18 Acetaminophen 325 Mg Tablet PO 01/25/24 19:16 975 mg STAT ONE Administration Acetaminophen Confirm 01/25/24 19:17 Acetaminophen 325 Mg Tablet Administered 01/25/24 19:18 Dose 975 mg .ROUTE .STK-MED ONE Acetaminophen Confirm 01/25/24 19:21 Acetaminophen 325 Mg Tablet Administered 01/25/24 19:22 Dose 975 mg .ROUTE .STK-MED ONE - Progress Progress: improved Progress Note: 23-year-old female presents to emergency department for evaluation of right hand pain. Patient fell approximately 1 week ago. Physical exam reveals some swelling of the dorsal aspect of her hand. No wrist pain. Patient able to move her wrist freely. The involved extremities neurovascular tact distally compartments are soft cap refill less than 2 seconds. X-ray negative for fracture dislocation. However patient is very sensitive. Patient referred to the orthopedic clinic for further evaluation and treatment. Patient currently has an appointment scheduled to see the orthopedist tomorrow in the clinic at 8 AM for knee pain. X-ray of her hand shows no fracture dislocation. This is a preliminary read by Dr. Chen. Formal radiology read pending. Plan of care discussed with patient. She agrees to follow-up as discussed. Involved upper extremity was placed in the right upper extremity splint. Patient received Tylenol as she is currently 31 weeks . Patient voices no other complaints or concerns at this time. Pain is well-controlled. Portions of this note were created with voice recognition technology. There may be grammatical, spelling, punctuation or sound alike errors Complexity problem addressed is moderate acute complicated. No critical care time. Complex of data reviewed and analyzed is moderate. Test ordered chest reviewed results analyzed and correlated clinically with history and physical exam. Risk of complication and or risk of morbidity/mortality patient management is moderate. Vital stable. Time spent to discharge patient is approximately 10 to 15 minutes. Plan of care established for shared decision making. No social determinants of health present impede follow-up. Portions of this note were created with voice recognition technology. There may be grammatical, spelling, punctuation or sound alike errors 01/25/24 19:53 Counseled pt/family regarding: diagnosis, need for follow-up, rad results - Departure Departure Disposition: Home Clinical Impression: Fall, Hand pain, right Condition: Stable Critical Care Time: No Referrals: CURTIS JEAN NP [Primary Care Provider] - Follow up/PCP as directed Additional Instructions: Discharge/Care Plan BERHANE GARCIA was seen on 01/25/24 in the Emergency Room. The patient was counseled regarding Diagnosis,Lab results, Imaging studies, need for follow up and when to return to the Emergency Room. Prescriptions given: Discharge Note I have spoken with the patient and/or caregivers. I have explained the patient's condition, diagnosis and treatment plan based on the information available to me at this time. I have answered the patient's and/or caregiver's questions and ad dressed any concerns. The patient and/or caregivers have as good understanding of the patient's diagnosis, condition and treatment plan as can be expected at this point. The vital signs have been stable. The patient's condition is stable and appropriate for discharge from the emergency department. The patient will pursue further outpatient evaluation with the primary care physician or other designated or consulting physician as outlined in the discharge instructions. The patient and/or caregivers are agreeable to this plan of care and follow-up instructions have been explained in detail. The patient and/or caregivers have received these instruction. The patient/and or caregivers are aware that any significant change in condition or worsening of symptoms should prompt an immediate return to this or the closest emergency department or call 911. Outpatient Orders: Ortho Referral Time Frame: 1 Day, Facility: [facility], Location: ORTHO CLINIC
[2024-01-25] MEDS ORDERED: TYLENOL 325 MG ONE ×2 (19:17→19:21)
[2024-01-25] MEDS: TYLENOL 325 MG PO ONE (19:18)
[2024-01-25 19:47] VITALS: PULSE 88; RESP 16
--- NOTE | 2024-01-26 08:36 | XRAY ---
Indication: Pain following fall. Comparison: None 3 view right hand demonstrates normal bones, articulation, and soft tissues.
== END 2024-01-25 19:56 | disposition home or self-care (01) ==
LOC: ED 18:43
DX: M79.641 Pain in right hand (principal); W19.XXXA Unspecified fall, initial encounter; Z79.899 Other long term (current) drug therapy; Z72.0 Tobacco use; Z33.1 Pregnant state, incidental
CPT/HCPCS: 73130; 99283; L3908; A9270-GY

== ENCOUNTER 2024-02-25 00:11 | Observation (INO) | payer OTHER ==
[2024-02-25] MEDS ORDERED: Diflucan 100 MG ONE (02:02)
[2024-02-25 03:11] VITALS: BP 128/87; PULSE 100; TEMP 98.6; O2SAT 97
[2024-02-25 03:12] LABS: Amphetamine,Urine NEGATIVE (NEGATIVE); Barbiturate,Urine NEGATIVE (NEGATIVE); Benzodiazepine,Urine NEGATIVE (NEGATIVE); Cocaine,Urine NEGATIVE (NEGATIVE); Methadone,Urine NEGATIVE (NEGATIVE); Opiate,Urine NEGATIVE (NEGATIVE); PCP,Urine NEGATIVE (NEGATIVE); THC,Urine NEGATIVE (NEGATIVE)
[2024-02-25 03:14] LABS: Appearance Cloudy (Clear); Bilirubin Negative (Negative); Blood Negative (Negative); Ketones Trace (Negative); Leukocyte Esterase Small (Negative); Nitrite Negative (Negative); Protein,Urine Dip Negative (Negative); Specific Gravity >=1.030 (1.005-1.030)
[2024-02-25 03:15] LABS: ADD URINE CULTURE? YES (NO); Bacteria Moderate /HPF (None Seen); Epithelial Cells Few /HPF (None Seen); Glucose, Urine Negative (Negative); RBC 0-2 /HPF (0-5)
[2024-02-25 03:18] VITALS: RESP 18
== END 2024-02-25 02:15 | disposition home or self-care (01) ==
LOC: OB 00:11
PROVIDERS: ADMIT Family Medicine; ATTEND Family Medicine
DX: Z34.83 Encounter for supervision of other normal pregnancy, third trimester (principal); Z3A.36 36 weeks gestation of pregnancy; Z59.82 Transportation insecurity
CPT/HCPCS: 80307; 81001; 87086; G0378; G0379; A9270-GY

== ENCOUNTER 2024-03-06 18:21 | Observation (INO) | payer OTHER ==
[2024-03-06 19:07] VITALS: BP 126/66; PULSE 106; RESP 16; TEMP 98.2; O2SAT 100
[2024-03-06 19:57] LABS: ADD URINE CULTURE? YES (NO); Appearance Cloudy (Clear); Bacteria Many /HPF (None Seen); Bilirubin Negative (Negative); Blood Negative (Negative); Calcium Oxalate Crystals 0-2 /HPF (None Seen); Epithelial Cells Few /HPF (None Seen); Glucose, Urine Negative (Negative); Ketones Trace (Negative); Leukocyte Esterase Moderate (Negative); Mucus Few /HPF (NEGATIVE); Nitrite Negative (Negative); Protein,Urine Dip 30 (Negative); RBC 0-2 /HPF (0-5); Specific Gravity >=1.030 (1.005-1.030)
[2024-03-06 19:58] LABS: Amphetamine,Urine NEGATIVE (NEGATIVE); Barbiturate,Urine NEGATIVE (NEGATIVE); Benzodiazepine,Urine NEGATIVE (NEGATIVE); Cocaine,Urine NEGATIVE (NEGATIVE); Methadone,Urine NEGATIVE (NEGATIVE); Opiate,Urine NEGATIVE (NEGATIVE); PCP,Urine NEGATIVE (NEGATIVE); THC,Urine NEGATIVE (NEGATIVE)
== END 2024-03-06 20:08 | disposition home or self-care (01) ==
LOC: OB 18:21
PROVIDERS: ADMIT Family Medicine; ATTEND Family Medicine
DX: Z34.83 Encounter for supervision of other normal pregnancy, third trimester (principal); Z3A.37 37 weeks gestation of pregnancy; Z59.82 Transportation insecurity
CPT/HCPCS: 80307; 81001; 87086; G0378; G0379

== ENCOUNTER 2024-03-12 23:59 | Observation (INO) | payer OTHER ==
[2024-03-13 01:04] LABS: Amphetamine,Urine NEGATIVE (NEGATIVE); Barbiturate,Urine NEGATIVE (NEGATIVE); Benzodiazepine,Urine NEGATIVE (NEGATIVE); Cocaine,Urine NEGATIVE (NEGATIVE); Methadone,Urine NEGATIVE (NEGATIVE); Opiate,Urine NEGATIVE (NEGATIVE); PCP,Urine NEGATIVE (NEGATIVE); THC,Urine NEGATIVE (NEGATIVE)
[2024-03-13] MEDS ORDERED: Lactated Ringers 1,000 ML IV ONE ×2 (01:21→02:14)
[2024-03-13] MEDS: Lactated Ringers 1,000 ML IV SCH (01:25)
[2024-03-13 03:18] LABS: Appearance Clear (Clear); Bilirubin Negative (Negative); Blood Negative (Negative); Epithelial Cells Many /HPF (None Seen); Glucose, Urine Negative (Negative); Ketones Trace (Negative); Leukocyte Esterase Negative (Negative); Nitrite Negative (Negative); Protein,Urine Dip Trace (Negative); RBC 0-2 /HPF (0-5); Specific Gravity >=1.030 (1.005-1.030)
[2024-03-13 03:31] LABS: ADD URINE CULTURE? NO (NO); Bacteria Few /HPF (None Seen); Hyaline Casts 0-2 /LPF (0-2); Mucus Moderate /HPF (NEGATIVE)
[2024-03-13 05:04] VITALS: BP 129/84; PULSE 107; RESP 18; TEMP 97.9; O2SAT 107
== END 2024-03-13 05:20 | disposition home or self-care (01) ==
LOC: OB 23:59
PROVIDERS: ADMIT Family Medicine; ATTEND Family Medicine
DX: Z34.83 Encounter for supervision of other normal pregnancy, third trimester (principal); Z3A.38 38 weeks gestation of pregnancy
CPT/HCPCS: 80307; 81001

== ENCOUNTER 2024-03-14 18:12 | Inpatient (IN) | payer OTHER ==
[2024-03-14] MEDS ORDERED: Lactated Ringers 1,000 ML IV ONE ×4 (18:43→20:31)
[2024-03-14] MEDS ORDERED: CEFAZOLIN 2 GM/100 ML NaCl 2 GM/100 ML IVPB IV ONE (18:43)
[2024-03-14] MEDS ORDERED: Pepcid 20 MG VIAL IV ONE (18:46)
[2024-03-14 18:57] LABS: Hematocrit 38.1 % (34.1-44.9); Hemoglobin 12.9 g/dL (11.2-15.7); Mean Cell Volume 88.4 fL (79.4-94.8); Mean Corpuscular Hemoglobin 29.9 pg (25.6-32.2); Mean Corpuscular Hgb Concent. 33.9 g/dL (32.2-35.5); Platelet Count 292 x10^3/uL (182-369); Red Blood Count 4.31 x10^6/uL (3.93-5.22); Red Cell Distribution Width 14.4 % (11.7-14.4); White Blood Count 19.7 x10^3/uL (3.98-10.04)
[2024-03-14] MEDS: CEFAZOLIN 2 GM/100 ML NaCl 2 GM/100 ML IVPB IV SCH (19:00)
[2024-03-14] MEDS: Lactated Ringers 1,000 ML IV SCH (19:00)
[2024-03-14 19:03] LABS: Appearance Cloudy (Clear); Bacteria Moderate /HPF (None Seen); Bilirubin Negative (Negative); Blood Small (Negative); Epithelial Cells Moderate /HPF (None Seen); Glucose, Urine Negative (Negative); Hyaline Casts NONE SEEN /LPF (0-2); Ketones Negative (Negative); Leukocyte Esterase Moderate (Negative); Nitrite Negative (Negative); Protein,Urine Dip Trace (Negative); RBC 0-2 /HPF (0-5); Specific Gravity 1.015 (1.005-1.030); WBC 21-50 /HPF (0-5)
[2024-03-14] MEDS ORDERED: Astramorph-Pf 5 MG/10 ML ONE (19:03)
[2024-03-14] MEDS ORDERED: PHENYLEPHRINE HCL ONE (19:03)
[2024-03-14 19:05] LABS: ADD URINE CULTURE? YES (NO)
[2024-03-14] MEDS ORDERED: Zofran 4 MG/2 ML VIAL ONE (19:05)
[2024-03-14] MEDS: Pepcid 20 MG VIAL IV SCH (19:08)
[2024-03-14] MEDS: SOD CITRATE-CITRIC ACID SOLN PO SCH (19:08)
[2024-03-14] MEDS: Reglan 10 MG/2 ML IV SCH (19:08)
[2024-03-14 19:14] LABS: INR 0.86 (0.8-3.0); PROTIME 9.5 SECONDS (9.4-12.5); PTT 29.6 SECONDS (25.1-36.5)
[2024-03-14 19:15] LABS: Amphetamine,Urine NEGATIVE (NEGATIVE); Barbiturate,Urine NEGATIVE (NEGATIVE); Benzodiazepine,Urine NEGATIVE (NEGATIVE); Cocaine,Urine NEGATIVE (NEGATIVE); Methadone,Urine NEGATIVE (NEGATIVE); Opiate,Urine NEGATIVE (NEGATIVE); PCP,Urine NEGATIVE (NEGATIVE); THC,Urine NEGATIVE (NEGATIVE)
[2024-03-14] MEDS: Lactated Ringers 1,000 ML IV ONE (19:40)
[2024-03-14] MEDS ORDERED: Zithromax 500 MG/ 250 ML NaCl Premix 500 MG/250 ML IVPB IV ONE (19:49)
[2024-03-14 20:02] LABS: ABO TYPING A; Antibody Screen NEGATIVE (NEGATIVE); RH TYPING NEGATIVE
[2024-03-14] MEDS ORDERED: Pitocin 10 UNITS/ML ONE (20:20)
[2024-03-14 20:43] LABS: Appearance Clear (Clear); Bacteria None Seen /HPF (None Seen); Bilirubin Negative (Negative); Blood Negative (Negative); Epithelial Cells None Seen /HPF (None Seen); Glucose, Urine Negative (Negative); Hyaline Casts NONE SEEN /LPF (0-2); Ketones Negative (Negative); Leukocyte Esterase Negative (Negative); Nitrite Negative (Negative); Ph 7.5 (4.6-8.0); Protein,Urine Dip Negative (Negative); RBC 0-2 /HPF (0-5); Specific Gravity 1.015 (1.005-1.030)
[2024-03-14] MEDS ORDERED: Zofran 4 MG/2 ML VIAL IV PRN (21:44)
[2024-03-14] MEDS ORDERED: HOLD NARCOTIC ANALGESICS AND SEDATIVES X24 HR MC PRN (21:44)
[2024-03-14] MEDS ORDERED: Narcan 0.4 MG/ML IV PRN (21:44)
[2024-03-14] MEDS ORDERED: MORPHINE SULFATE 2 MG INJ IV PRN (21:44)
[2024-03-14] MEDS: CLARITIN 10 MG PO PRN (21:56)
[2024-03-14] MEDS: BENADRYL 50 MG/ML IV PRN (22:00)
[2024-03-14] MEDS: Dextrose 5%-Lr IV Solution 1000 ML 1,000 ML IV SCH (22:09)
[2024-03-15] MEDS: Nubain 10 MG/ML IV PRN (00:35)
[2024-03-15] MEDS ORDERED: CEFAZOLIN 2 GM/100 ML NaCl IV SCH (03:00)
[2024-03-15] MEDS: CEFAZOLIN 2 GM/100 ML NaCl 2 GM/100 ML IVPB IV SCH (04:20)
[2024-03-15] MEDS: PERCOCET TABLET 5/325MG PO PRN (06:23)
[2024-03-15 08:02] LABS: Absolute Neutrophil Ct (ANC) 15.17 x10^3/uL (1.56-6.13); BASOPHIL % 0.3 % (0.1-1.2); Basophil (Absolute #) 0.07 x10^3/uL (0.01-0.08); Eosinophil % 0.3 % (0.7-5.8); Eosinophil (Absolute #) 0.06 x10^3/uL (0.04-0.36); Hematocrit 34.4 % (34.1-44.9); Hemoglobin 11.2 g/dL (11.2-15.7); IMMATURE GRAN # 0.16 x10^3u/L (0.001-0.031); IMMATURE GRAN % 0.8 % (0.001-0.429); Lymphocyte (Absolute #) 3.78 x10^3/uL (1.18-3.74); Lymphocytes % 18.6 % (19.3-51.7); Mean Cell Volume 91.7 fL (79.4-94.8); Mean Corpuscular Hemoglobin 29.9 pg (25.6-32.2); Mean Corpuscular Hgb Concent. 32.6 g/dL (32.2-35.5); Mean Platelet Volume 10.5 fL (9.4-12.3); Monocyte (Absolute #) 1.05 x10^3/uL (0.24-0.86); Monocytes % 5.2 % (4.7-12.5); Neutrophil % 74.8 % (34.0-71.1); Platelet Count 249 x10^3/uL (182-369); Red Blood Count 3.75 x10^6/uL (3.93-5.22); Red Cell Distribution Width 14.2 % (11.7-14.4); White Blood Count 20.3 x10^3/uL (3.98-10.04)
[2024-03-15] MEDS ORDERED: TYLENOL EXTRA STRENGTH 500 MG PO PRN (08:18)
[2024-03-15] MEDS ORDERED: TUCKS TP PRN (08:18)
[2024-03-15] MEDS ORDERED: Anucort-HC SUPPOSITORY PR PRN (08:18)
[2024-03-15] MEDS ORDERED: CORTISONE 1% CREAM TP PRN (08:18)
[2024-03-15] MEDS ORDERED: Dulcolax 10 MG SUPP PR PRN (08:18)
[2024-03-15 08:23] LABS: ALBUMIN 2.5 g/dL (3.5-5.0); ANION GAP 9.7 MEQ/L (5-15); BILIRUBIN,TOTAL 0.4 mg/dL (0.2-1.3); Calcium 8.4 mg/dL (8.4-10.2); Creatinine 1 0.57 mg/dL (0.52-1.04); EST GLOMERULAR FILTRATION RATE 130.1 ML/MIN; Potassium 3.9 mmol/L (3.5-5.1)
--- NOTE | 2024-03-15 09:24 | PCM.NOTE ---
Date and Time: 03/15/24922 Subjective Assessment: mild lochia, pain well controlled. up out of bed and tolerating po with no complaints Objective Exam General Appearance: no apparent distress, obese Neurologic Exam: alert, oriented x 3 Respiratory Exam: normal breath sounds, lungs clear, No respiratory distress Cardiovascular Exam: regular rate/rhythm, normal heart sounds Gastrointestinal/Abdomen Exam: soft, other (fundus firm, incision clean, dry, intact and well approximated) Extremity Exam: normal inspection, normal range of motion Objective Data Vital Signs: Vital Signs - 24 hr Temp Pulse Resp BP Pulse Ox 03/15/24 07:00 98 03/15/24 06:00 96 03/15/24 05:25 99.2 F 101 H 18 116/67 95 03/15/24 05:00 96 03/15/24 04:00 96 03/15/24 03:00 95 03/15/24 01:59 97 03/15/24 01:55 98.9 F 109 H 20 125/71 97 03/15/24 00:00 97 03/14/24 23:45 98.6 F 90 20 136/88 99 03/14/24 22:45 98.4 F 88 20 131/78 100 03/14/24 22:15 84 20 137/89 100 03/14/24 21:45 97.5 F 77 20 129/80 03/14/24 21:30 75 18 129/80 100 03/14/24 21:15 96.9 F 66 18 113/56 100 03/14/24 20:50 96.9 F 87 16 116/57 03/14/24 19:00 84 20 122/84 100 Pain Assessment - Last Documented Pain Intensity 2 Pain Scale Used 0-10 Pain Scale Intake and Output: Intake & Output 03/12/24 03/13/24 03/14/24 03/15/24 11:59 11:59 11:59 11:59 Intake Total 2304 Output Total 900 Balance 1404 Weight 84.822 kg Lab Results: Lab Results-Last 24 Hours 03/14/24 03/14/24 03/14/24 Range/Units 18:50 18:50 18:50 WBC 19.7 H (3.98-10.04) x10^3/uL RBC 4.31 (3.93-5.22) x10^6/uL Hgb 12.9 (11.2-15.7) g/dL Hct 38.1 (34.1-44.9) % MCV 88.4 (79.4-94.8) fL MCH 29.9 (25.6-32.2) pg MCHC 33.9 (32.2-35.5) g/dL RDW 14.4 (11.7-14.4) % Plt Count 292 (182-369) x10^3/uL MPV 11.0 (9.4-12.3) fL Gran % (34.0-71.1) % Immature Gran % (Auto) (0.001-0.429) % Nucleat RBC Rel Count (0.00-0.2) % Eos # (Auto) (0.04-0.36) x10^3/uL Immature Gran # (Auto) (0.001-0.031) x10^3u/L Absolute Lymphs (auto) (1.18-3.74) x10^3/uL Absolute Monos (auto) (0.24-0.86) x10^3/uL Absolute Nucleated RBC (0.00-0.012) x10^3u/L Lymphocytes % (19.3-51.7) % Monocytes % (4.7-12.5) % Eosinophils % (0.7-5.8) % Basophils % (0.1-1.2) % Absolute Granulocytes (1.56-6.13) x10^3/uL Basophils # (0.01-0.08) x10^3/uL PT (9.4-12.5) SECONDS INR (0.8-3.0) APTT (25.1-36.5) SECONDS Sodium (135-145) mmol/L Potassium (3.5-5.1) mmol/L Chloride (98-107) mmol/L Carbon Dioxide (22-30) mmol/L Anion Gap (5-15) MEQ/L BUN (7-17) mg/dL Creatinine (0.52-1.04) mg/dL Estimated GFR ML/MIN Glucose (74-106) mg/dL Calcium (8.4-10.2) mg/dL Total Bilirubin (0.2-1.3) mg/dL AST (14-36) U/L ALT (0-35) U/L Alkaline Phosphatase (38-126) U/L Serum Total Protein (6.3-8.2) g/dL Albumin (3.5-5.0) g/dL Urine Color Yellow (Yellow) Urine Appearance Cloudy A (Clear) Urine pH 7.0 (4.6-8.0) Ur Specific Tamms 1.015 (1.005-1.030) Urine Protein Trace A (Negative) Urine Glucose (UA) Negative (Negative) mg/dL Urine Ketones Negative (Negative) Urine Blood Small A (Negative) Urine Nitrite Negative (Negative) Urine Bilirubin Negative (Negative) Urine Urobilinogen 1.0 A (0.2) mg/dL Ur Leukocyte Esterase Moderate A (Negative) U Hyaline Cast (Auto) NONE SEEN (0-2) /LPF Urine Microscopic RBC 0-2 (0-5) /HPF Urine Microscopic WBC 21-50 A (0-5) /HPF Ur Epithelial Cells Moderate A (None Seen) /HPF Urine Bacteria Moderate A (None Seen) /HPF Urine Culture Reflexed YES (NO) Urine Opiates Level NEGATIVE (NEGATIVE) Ur Methadone NEGATIVE (NEGATIVE) Urine Barbiturates NEGATIVE (NEGATIVE) Ur Phencyclidine (PCP) NEGATIVE (NEGATIVE) Urine Amphetamine NEGATIVE (NEGATIVE) U Benzodiazepine Level NEGATIVE (NEGATIVE) Urine Cocaine NEGATIVE (NEGATIVE) Urine Marijuana (THC) NEGATIVE (NEGATIVE) ABO Group Rh Factor Antibody Screen (NEGATIVE) Screen 03/14/24 03/14/24 03/14/24 Range/Units 18:50 19:18 19:26 WBC (3.98-10.04) x10^3/uL RBC (3.93-5.22) x10^6/uL Hgb (11.2-15.7) g/dL Hct (34.1-44.9) % MCV (79.4-94.8) fL MCH (25.6-32.2) pg MCHC (32.2-35.5) g/dL RDW (11.7-14.4) % Plt Count (182-369) x10^3/uL MPV (9.4-12.3) fL Gran % (34.0-71.1) % Immature Gran % (Auto) (0.001-0.429) % Nucleat RBC Rel Count (0.00-0.2) % Eos # (Auto) (0.04-0.36) x10^3/uL Immature Gran # (Auto) (0.001-0.031) x10^3u/L Absolute Lymphs (auto) (1.18-3.74) x10^3/uL Absolute Monos (auto) (0.24-0.86) x10^3/uL Absolute Nucleated RBC (0.00-0.012) x10^3u/L Lymphocytes % (19.3-51.7) % Monocytes % (4.7-12.5) % Eosinophils % (0.7-5.8) % Basophils % (0.1-1.2) % Absolute Granulocytes (1.56-6.13) x10^3/uL Basophils # (0.01-0.08) x10^3/uL PT 9.5 (9.4-12.5) SECONDS INR 0.86 (0.8-3.0) APTT 29.6 (25.1-36.5) SECONDS Sodium (135-145) mmol/L Potassium (3.5-5.1) mmol/L Chloride (98-107) mmol/L Carbon Dioxide (22-30) mmol/L Anion Gap (5-15) MEQ/L BUN (7-17) mg/dL Creatinine (0.52-1.04) mg/dL Estimated GFR ML/MIN Glucose (74-106) mg/dL Calcium (8.4-10.2) mg/dL Total Bilirubin (0.2-1.3) mg/dL AST (14-36) U/L ALT (0-35) U/L Alkaline Phosphatase (38-126) U/L Serum Total Protein (6.3-8.2) g/dL Albumin (3.5-5.0) g/dL Urine Color Yellow (Yellow) Urine Appearance Clear (Clear) Urine pH 7.5 (4.6-8.0) Ur Specific Tamms 1.015 (1.005-1.030) Urine Protein Negative (Negative) Urine Glucose (UA) Negative (Negative) mg/dL Urine Ketones Negative (Negative) Urine Blood Negative (Negative) Urine Nitrite Negative (Negative) Urine Bilirubin Negative (Negative) Urine Urobilinogen 1.0 A (0.2) mg/dL Ur Leukocyte Esterase Negative (Negative) U Hyaline Cast (Auto) NONE SEEN (0-2) /LPF Urine Microscopic RBC 0-2 (0-5) /HPF Urine Microscopic WBC 3-5 (0-5) /HPF Ur Epithelial Cells None Seen (None Seen) /HPF Urine Bacteria None Seen (None Seen) /HPF Urine Culture Reflexed (NO) Urine Opiates Level (NEGATIVE) Ur Methadone (NEGATIVE) Urine Barbiturates (NEGATIVE) Ur Phencyclidine (PCP) (NEGATIVE) Urine Amphetamine (NEGATIVE) U Benzodiazepine Level (NEGATIVE) Urine Cocaine (NEGATIVE) Urine Marijuana (THC) (NEGATIVE) ABO Group A Rh Factor NEGATIVE Antibody Screen NEGATIVE (NEGATIVE) Screen 03/15/24 03/15/24 03/15/24 Range/Units 03:11 08:02 08:02 WBC 20.3 H (3.98-10.04) x10^3/uL RBC 3.75 L (3.93-5.22) x10^6/uL Hgb 11.2 (11.2-15.7) g/dL Hct 34.4 (34.1-44.9) % MCV 91.7 (79.4-94.8) fL MCH 29.9 (25.6-32.2) pg MCHC 32.6 (32.2-35.5) g/dL RDW 14.2 (11.7-14.4) % Plt Count 249 (182-369) x10^3/uL MPV 10.5 (9.4-12.3) fL Gran % 74.8 H (34.0-71.1) % Immature Gran % (Auto) 0.8 H (0.001-0.429) % Nucleat RBC Rel Count 0.0 (0.00-0.2) % Eos # (Auto) 0.06 (0.04-0.36) x10^3/uL Immature Gran # (Auto) 0.16 H (0.001-0.031) x10^3u/L Absolute Lymphs (auto) 3.78 H (1.18-3.74) x10^3/uL Absolute Monos (auto) 1.05 H (0.24-0.86) x10^3/uL Absolute Nucleated RBC 0.00 (0.00-0.012) x10^3u/L Lymphocytes % 18.6 L (19.3-51.7) % Monocytes % 5.2 (4.7-12.5) % Eosinophils % 0.3 L (0.7-5.8) % Basophils % 0.3 (0.1-1.2) % Absolute Granulocytes 15.17 H (1.56-6.13) x10^3/uL Basophils # 0.07 (0.01-0.08) x10^3/uL PT (9.4-12.5) SECONDS INR (0.8-3.0) APTT (25.1-36.5) SECONDS Sodium 137 (135-145) mmol/L Potassium 3.9 (3.5-5.1) mmol/L Chloride 106 (98-107) mmol/L Carbon Dioxide 25 (22-30) mmol/L Anion Gap 9.7 (5-15) MEQ/L BUN 4 L (7-17) mg/dL Creatinine 0.57 (0.52-1.04) mg/dL Estimated GFR 130.1 ML/MIN Glucose 95 (74-106) mg/dL Calcium 8.4 (8.4-10.2) mg/dL Total Bilirubin 0.40 (0.2-1.3) mg/dL AST 21 (14-36) U/L ALT 12 (0-35) U/L Alkaline Phosphatase 122 (38-126) U/L Serum Total Protein 5.0 L (6.3-8.2) g/dL Albumin 2.5 L (3.5-5.0) g/dL Urine Color (Yellow) Urine Appearance (Clear) Urine pH (4.6-8.0) Ur Specific Tamms (1.005-1.030) Urine Protein (Negative) Urine Glucose (UA) (Negative) mg/dL Urine Ketones (Negative) Urine Blood (Negative) Urine Nitrite (Negative) Urine Bilirubin (Negative) Urine Urobilinogen (0.2) mg/dL Ur Leukocyte Esterase (Negative) U Hyaline Cast (Auto) (0-2) /LPF Urine Microscopic RBC (0-5) /HPF Urine Microscopic WBC (0-5) /HPF Ur Epithelial Cells (None Seen) /HPF Urine Bacteria (None Seen) /HPF Urine Culture Reflexed (NO) Urine Opiates Level (NEGATIVE) Ur Methadone (NEGATIVE) Urine Barbiturates (NEGATIVE) Ur Phencyclidine (PCP) (NEGATIVE) Urine Amphetamine (NEGATIVE) U Benzodiazepine Level (NEGATIVE) Urine Cocaine (NEGATIVE) Urine Marijuana (THC) (NEGATIVE) ABO Group Rh Factor Antibody Screen (NEGATIVE) Screen SEE SEPARATE REPORT Assessment/Plan (1) delivery delivered Current Visit: Yes Status: Acute Assessment & Plan: routine post op care Code(s): O82 - ENCOUNTER FOR DELIVERY WITHOUT INDICATION
[2024-03-15] MEDS: Docusate Sodium 100 MG PO SCH (10:29)
[2024-03-15] MEDS: FERREX 150 PO SCH (10:29)
[2024-03-15] MEDS: Effexor XR 75 MG PO SCH (10:29)
[2024-03-15] MEDS: NICODERM CQ 14 MG TOP SCH (10:30)
[2024-03-15] MEDS: Effexor ER 37.5 MG PO SCH (10:30)
[2024-03-15] MEDS ORDERED: Ambien 10 MG PO PRN (19:00)
[2024-03-15] MEDS: MOTRIN 400 MG PO PRN (19:11)
[2024-03-15] MEDS: NORCO 5/325 MG PO PRN (22:33)
[2024-03-16 06:49] LABS: Absolute Neutrophil Ct (ANC) 17.56 x10^3/uL (1.56-6.13); BASOPHIL % 0.3 % (0.1-1.2); Basophil (Absolute #) 0.07 x10^3/uL (0.01-0.08); Eosinophil % 0.5 % (0.7-5.8); Eosinophil (Absolute #) 0.11 x10^3/uL (0.04-0.36); Hemoglobin 11.9 g/dL (11.2-15.7); IMMATURE GRAN # 0.21 x10^3u/L (0.001-0.031); IMMATURE GRAN % 0.9 % (0.001-0.429); Lymphocyte (Absolute #) 3.89 x10^3/uL (1.18-3.74); Lymphocytes % 16.9 % (19.3-51.7); Mean Cell Volume 88.7 fL (79.4-94.8); Mean Corpuscular Hemoglobin 29.3 pg (25.6-32.2); Mean Corpuscular Hgb Concent. 33.1 g/dL (32.2-35.5); Mean Platelet Volume 10.2 fL (9.4-12.3); Monocyte (Absolute #) 1.24 x10^3/uL (0.24-0.86); Monocytes % 5.4 % (4.7-12.5); Platelet Count 278 x10^3/uL (182-369); Red Blood Count 4.06 x10^6/uL (3.93-5.22); Red Cell Distribution Width 14.1 % (11.7-14.4); White Blood Count 23.1 x10^3/uL (3.98-10.04)
[2024-03-16] MEDS ORDERED: Rhogam Plus 300 MCG IM ONE (08:00)
[2024-03-16 08:48] LABS: RPR Non Reactive (Non Reactive)
[2024-03-16] MEDS: Effexor XR 75 MG PO SCH (10:55)
[2024-03-16] MEDS ORDERED: PHARMACY DOSING REQUIRED: GENTAMICIN IV SCH (11:00)
--- NOTE | 2024-03-16 11:22 | OP ---
SURGERY DATE/TIME: 03/14/20241913 - 2024 PREOPERATIVE DIAGNOSES: Intrauterine at 38 weeks and 5 days' gestation with her being in labor with footling breech, desiring tubal sterilization. POSTOPERATIVE DIAGNOSES: Intrauterine at 38 weeks and 5 days' gestation with her being in labor with footling breech with thick meconium and nuchal cord x2, desiring tubal sterilization. PROCEDURE: Primary section, low cut transverse uterine incision, Pfannenstiel skin incision, bilateral tubal sterilization. SURGEON: Aleks Bacon MD. STAFF CERTIFIED NURSE MIDWIFE: Ayaka Thomas. ANESTHESIA: Spinal. ESTIMATED BLOOD LOSS: 330 mL. COMPLICATIONS: None. INDICATIONS: The risks, benefits, indications, and alternatives of the procedure were reviewed with the patient prior to the procedure. Patient understood the risks of infection, bleeding, bowel injury, bladder injury, ureteral injury, pelvic infection, thromboembolic disorder associated with this surgery and desires to have this surgery as a possible means to alleviate her current medical condition. DESCRIPTION OF PROCEDURE AND FINDINGS: At this point, the patient was taken to the operating room where her spinal anesthesia was found to be adequate. She was then prepared and draped in a normal sterile fashion in the dorsal supine position with a leftward tilt. A Pfannenstiel skin incision was made with the scalpel and carried through to the underlying layer of the fascia with a Bovie. The fascia was then incised in the midline and the incision extended laterally with the Zambrano scissors. The superior aspect of fascial incision was then grasped with the Kim clamps, elevated, and the underlying rectus muscle dissected bluntly. Attention was then turned to the inferior aspect of this incision which, in a similar fashion, was grasped, tented up with the Kim clamps, and the rectus muscle dissected out bluntly. The rectus muscle was then in the midline. The peritoneum identified, tented up, and entered sharply with the Metzenbaum scissors. The peritoneal incision was then extended superiorly and inferiorly with good visualization of the bladder. From this point, bladder blade was then inserted and the vesicouterine peritoneum identified, grasped with the pickups and entered sharply with the Metzenbaum scissors. This incision was then extended laterally and bladder flap created digitally. Bladder blade was then removed. The lower uterine segment was incised in a transverse fashion with the scalpel. The uterine incision was then extended laterally with the mini scissors. The bladder blade was then removed and the baby was noted to have a malpresentation. At this point, the buttocks was noted along the incisional site and was brought out, followed by the lower extremities, followed by the upper extremities and finally the head. From this point, the nose and mouth was suctioned with a bulb suction, and the cord clamped and cut. The was then handed off to waiting nurses. The placenta was then removed manually, the uterus exteriorized and cleared of all clots and debris. The uterine incision was repaired with 1-0 chromic in running locked fashion. A second layer of the same suture was used to obtain excellent hemostasis. From this point of the procedure, the left fallopian tube was identified and a [place] clamp was placed on the tube to grasp the tube approximately 4 cm from the cornual region. Then, a 3 cm segment of the tube was ligated with a free tie plain gut and excised. Good hemostasis was assured. The same procedure that was performed of the right tube where a [place] clamp was placed was used to grasp the tube approximately 4 cm from the cornual region and a 3 cm segment of the tube was then ligated with a free tie, plain gut and excised. Good hemostasis was assured. From this point, the uterus at the uterine incisions which were closed with 1-0 chromic with a running locking suture. The second layer of the suture was used to obtained excellent hemostasis. The uterus was then returned to the abdomen and the gutters were cleared of all clots and peritoneum and muscle closed in interrupted fashion using 2-0 chromic suture. The fascia was reapproximated with 0 Vicryl in a running fashion and the skin was closed with absorbable herman called Insorb. The patient tolerated the procedure well. Sponge, lap, needle, and instrument counts were correct x2. The patient delivered at 1933. Apgars were 1, 2 and 5. The patient delivered a live baby boy.
[2024-03-16] MEDS: OMNIPEN 2 GM*** 2 G in Sodium Chloride 100ML MINI-BAG PLUS 100 ML IV SCH (13:28)
[2024-03-16] MEDS: CLINDAMYCIN-D5W 900 MG/50 ML*** 900 MG/50 ML BAG IV SCH (14:36)
[2024-03-16] MEDS: GENTAMICIN 80 MG/50 ML PREMIX*** 80 MG/50 ML ML IV SCH (16:55)
[2024-03-16] MEDS: RHO D IMMUNE GLOBULIN IJ ONE (18:26)
[2024-03-16] MEDS: Mylicon 80MG PO PRN (18:40)
[2024-03-16] MEDS ORDERED: Lactated Ringers 1,000 ML IV ONE (19:55)
[2024-03-16] MEDS ORDERED: Lactated Ringers 1,000 ML IV SCH (20:00)
[2024-03-16 20:12] VITALS: O2SAT 97
[2024-03-17 02:48] LABS: Absolute Neutrophil Ct (ANC) 13.31 x10^3/uL (1.56-6.13); BASOPHIL % 0.4 % (0.1-1.2); Basophil (Absolute #) 0.07 x10^3/uL (0.01-0.08); Eosinophil (Absolute #) 0.19 x10^3/uL (0.04-0.36); Hematocrit 35.7 % (34.1-44.9); Hemoglobin 11.7 g/dL (11.2-15.7); IMMATURE GRAN # 0.17 x10^3u/L (0.001-0.031); IMMATURE GRAN % 0.9 % (0.001-0.429); Lymphocyte (Absolute #) 4.27 x10^3/uL (1.18-3.74); Lymphocytes % 22.5 % (19.3-51.7); Mean Cell Volume 89.7 fL (79.4-94.8); Mean Corpuscular Hemoglobin 29.4 pg (25.6-32.2); Mean Corpuscular Hgb Concent. 32.8 g/dL (32.2-35.5); Mean Platelet Volume 10.3 fL (9.4-12.3); Monocyte (Absolute #) 0.97 x10^3/uL (0.24-0.86); Monocytes % 5.1 % (4.7-12.5); Neutrophil % 70.1 % (34.0-71.1); Platelet Count 295 x10^3/uL (182-369); Red Blood Count 3.98 x10^6/uL (3.93-5.22); Red Cell Distribution Width 13.7 % (11.7-14.4)
--- NOTE | 2024-03-17 07:57 | PCM.NOTE ---
Date and Time: 03/17/24 0755 Subjective Assessment: pod 3 sp csection pt resting in bed and doing well able to ambulate and tolerate diet vss afebrile abd; soft incision c/d/intact uterus; firm lochia; mild a/p sp csection pod 3 postop leukocytosis will discontinue amp/gent/clinda today will dc home today should fu in office in 2wks Objective Data Vital Signs: Vital Signs - 24 hr Temp Pulse Resp BP Pulse Ox 03/17/24 04:59 97.7 F 91 H 18 131/70 03/16/24 23:42 134/97 03/16/24 20:11 98.5 F 100 H 18 141/74 97 03/16/24 17:00 98.9 F 93 H 14 137/83 95 03/16/24 11:00 98.5 F 109 H 14 137/82 98 03/16/24 08:00 99.2 F Pain Assessment - Last Documented Pain Intensity [transvers 1 lower abd] Pain Intensity 0 Pain Scale Used 0-10 Pain Scale Intake and Output: Intake & Output 03/14/24 03/15/24 03/16/24 03/17/24 11:59 11:59 11:59 11:59 Intake Total 2304 1250 600 Output Total 1905 Balance 399 1250 600 Weight 84.822 kg Lab Results: Lab Results-Last 24 Hours 03/14/24 03/17/24 Range/Units 18:50 02:35 WBC 19.0 H (3.98-10.04) x10^3/uL RBC 3.98 (3.93-5.22) x10^6/uL Hgb 11.7 (11.2-15.7) g/dL Hct 35.7 (34.1-44.9) % MCV 89.7 (79.4-94.8) fL MCH 29.4 (25.6-32.2) pg MCHC 32.8 (32.2-35.5) g/dL RDW 13.7 (11.7-14.4) % Plt Count 295 (182-369) x10^3/uL MPV 10.3 (9.4-12.3) fL Gran % 70.1 (34.0-71.1) % Immature Gran % (Auto) 0.9 H (0.001-0.429) % Nucleat RBC Rel Count 0.0 (0.00-0.2) % Eos # (Auto) 0.19 (0.04-0.36) x10^3/uL Immature Gran # (Auto) 0.17 H (0.001-0.031) x10^3u/L Absolute Lymphs (auto) 4.27 H (1.18-3.74) x10^3/uL Absolute Monos (auto) 0.97 H (0.24-0.86) x10^3/uL Absolute Nucleated RBC 0.00 (0.00-0.012) x10^3u/L Lymphocytes % 22.5 (19.3-51.7) % Monocytes % 5.1 (4.7-12.5) % Eosinophils % 1.0 (0.7-5.8) % Basophils % 0.4 (0.1-1.2) % Absolute Granulocytes 13.31 H (1.56-6.13) x10^3/uL Basophils # 0.07 (0.01-0.08) x10^3/uL RPR Non Reactive (Non Reactive) Assessment/Plan (1) Malpresentation of fetus Current Visit: Yes Status: Acute Code(s): O32.9XX0 - MATERNAL CARE FOR MALPRESENTATION OF FETUS, UNSP, UNSP (2) Footling breech presentation Current Visit: Yes Status: Acute Code(s): O32.8XX0 - MATERNAL CARE FOR OTH MALPRESENTATION OF FETUS, UNSP (3) Postoperative fever Current Visit: Yes Status: Acute Code(s): R50.82 - POSTPROCEDURAL FEVER
--- NOTE | 2024-03-17 08:03 | PCM.DS ---
Discharge Summary Date of Admission: 03/14/24 18:12 Admitting Physician: DK ALMEIDA Consults: Consults on Case 03/14/24 18:46 Notify Physician OF ADMISSION 03/14/24 18:50 Notify Anesthesia Provider ROUTINE 03/14/24 21:44 Notify Anesthesia Provider PRN 03/15/24 09:00 Navigation ONCE Primary Care Provider: CURTIS JEAN NP Allergies Allergies codeine Allergy (Severe, Verified 03/13/24 05:32) hallucinate Hospital Summary - Hospital Course Hospital Course: pt admitted on mar 14 for being in labor with having fetus with malpresentation and noted footling breech on exam. pt was at 38 5/7 wks gestation upon presentation and proceeded for section and was done so without complication. pt was able to tolerate diet and ambulate and was noted having elveated wbc at 23 thousand on mar 16 and was started on amp/gent/clinda and had temp at 99. during mar 17 pt was doing very well with decreased wbc to 19 and at this time stable for discharge today after last dose of antibiotic to be given at 230 pm today to fulfill 24 hrs of iv medication. pt was given rx of augmentin 875 bid for 5 days for prophylaxis upon discharge and was also given ibuprofen for pain management per her request. incision appeared c/d/intact and urine culture had been negative. pt was advised to fu in office in 2 wks for postop check and all questions were answered to her satisfaction. pt had delivered live baby boy on mar 14. - Vitals & Intake/Output Vital Signs: Vital Signs Temperature 97.7 F 03/17/24 04:59 Pulse Rate 91 H 03/17/24 04:59 Respiratory Rate 18 03/17/24 04:59 Blood Pressure 131/70 03/17/24 04:59 O2 Sat by Pulse Oximetry 97 03/16/24 20:11 Intake & Output: Intake & Output 03/14/24 03/15/24 03/16/24 03/17/24 11:59 11:59 11:59 11:59 Intake Total 2304 1250 600 Output Total 1905 Balance 399 1250 600 Weight 84.822 kg - Lab Result Diagrams: 03/17/24 02:35 03/15/24 08:02 Lab Results-Last 24 Hrs: Lab Results-Last 24 Hours 03/14/24 03/17/24 Range/Units 18:50 02:35 WBC 19.0 H (3.98-10.04) x10^3/uL RBC 3.98 (3.93-5.22) x10^6/uL Hgb 11.7 (11.2-15.7) g/dL Hct 35.7 (34.1-44.9) % MCV 89.7 (79.4-94.8) fL MCH 29.4 (25.6-32.2) pg MCHC 32.8 (32.2-35.5) g/dL RDW 13.7 (11.7-14.4) % Plt Count 295 (182-369) x10^3/uL MPV 10.3 (9.4-12.3) fL Gran % 70.1 (34.0-71.1) % Immature Gran % (Auto) 0.9 H (0.001-0.429) % Nucleat RBC Rel Count 0.0 (0.00-0.2) % Eos # (Auto) 0.19 (0.04-0.36) x10^3/uL Immature Gran # (Auto) 0.17 H (0.001-0.031) x10^3u/L Absolute Lymphs (auto) 4.27 H (1.18-3.74) x10^3/uL Absolute Monos (auto) 0.97 H (0.24-0.86) x10^3/uL Absolute Nucleated RBC 0.00 (0.00-0.012) x10^3u/L Lymphocytes % 22.5 (19.3-51.7) % Monocytes % 5.1 (4.7-12.5) % Eosinophils % 1.0 (0.7-5.8) % Basophils % 0.4 (0.1-1.2) % Absolute Granulocytes 13.31 H (1.56-6.13) x10^3/uL Basophils # 0.07 (0.01-0.08) x10^3/uL RPR Non Reactive (Non Reactive) Micro Results-Entire Visit: Microbiology 03/14/24 19:18 Urine Culture - Final Catherized NO GROWTH 03/14/24 18:50 Urine Culture - Final Clean Catch Midstream <10K NORMAL SKIN BRENDEN PROBABLE SKIN CONTAMINANT - Procedures and Test Procedures and Tests throughout Hospitalization: Therapy Orders & Screens 03/14/24 23:13 Smoking Cessation Education ONCE Comment: Diagnosis: term Smoking Status: Current every day smoker How long have you smoked: 10 Have you smoked in the past 12 months: Yes Approximately how many cigarettes per day: 10 cig Do you dip or chew tobacco: No Final Diagnosis/Problem List - Final Discharge Diagnosis/Problem (1) Malpresentation of fetus Current Visit: Yes Status: Acute Code(s): O32.9XX0 - MATERNAL CARE FOR MALPRESENTATION OF FETUS, UNSP, UNSP (2) Footling breech presentation Current Visit: Yes Status: Acute Code(s): O32.8XX0 - MATERNAL CARE FOR OTH MALPRESENTATION OF FETUS, UNSP (3) Postoperative fever Current Visit: Yes Status: Acute Code(s): R50.82 - POSTPROCEDURAL FEVER - Discharge Disposition: Home, Self-Care Condition: Stable Prescriptions: No Action Venlafaxine HCl ER 75 mg [Effexor XR 75 MG] 2 tab PO DAILY Vit No.179/Iron/Folic [ Tablet] 1 each PO DAILY Melatonin 10 mg PO HS Venlafaxine HCl 37.5 mg [Effexor 37.5 mg] 37.5 mg PO DAILY Guaifenesin/Dextromethorphan [Robitussin Honey Max Dm Liquid] 237 ml PO Q12H PRN PRN PRN Reason: Cough Cephalexin Mh 500 mg [Keflex 500 mg] 500 mg PO Q6H Follow up with: CURTIS JEAN NP [Primary Care Provider] - DANIELLE HORNER DO [ACTIVE STAFF] - 03/28/24 (pt advised to call me for any issues that may arise upon discharge relating to her surgery no heavy lifting no intercourse for 4 wks no driving for 10 days keep incision clean and dry with soap and water should fu in office on mar 28)
[2024-03-17 10:16] LABS: Absolute Neutrophil Ct (ANC) 10.39 x10^3/uL (1.56-6.13); BASOPHIL % 0.4 % (0.1-1.2); Basophil (Absolute #) 0.06 x10^3/uL (0.01-0.08); Eosinophil % 1.3 % (0.7-5.8); Hematocrit 32.2 % (34.1-44.9); Hemoglobin 10.6 g/dL (11.2-15.7); IMMATURE GRAN # 0.14 x10^3u/L (0.001-0.031); IMMATURE GRAN % 0.9 % (0.001-0.429); Lymphocyte (Absolute #) 3.57 x10^3/uL (1.18-3.74); Lymphocytes % 23.3 % (19.3-51.7); Mean Cell Volume 90.2 fL (79.4-94.8); Mean Corpuscular Hemoglobin 29.7 pg (25.6-32.2); Mean Corpuscular Hgb Concent. 32.9 g/dL (32.2-35.5); Mean Platelet Volume 9.9 fL (9.4-12.3); Monocyte (Absolute #) 0.98 x10^3/uL (0.24-0.86); Monocytes % 6.4 % (4.7-12.5); Neutrophil % 67.7 % (34.0-71.1); Platelet Count 274 x10^3/uL (182-369); Red Blood Count 3.57 x10^6/uL (3.93-5.22); Red Cell Distribution Width 13.8 % (11.7-14.4); White Blood Count 15.3 x10^3/uL (3.98-10.04)
[2024-03-17] MEDS: Adacel Vial IM ONE (10:18)
[2024-03-17 10:39] VITALS: BP 145/89; PULSE 99; RESP 14; TEMP 98.4
== END 2024-03-17 17:50 | disposition home or self-care (01) | DRG 785 ==
LOC: OB 18:12
PROVIDERS: ADMIT Family Medicine; ATTEND Family Medicine
PROC: 10D00Z1 Extraction of Products of Conception, Low, Open Approach (ICD-10-PCS; principal; 2024-03-14)
PROC: 0UB70ZZ Excision of Bilateral Fallopian Tubes, Open Approach (ICD-10-PCS; 2024-03-14)
DX: O32.9XX0 Maternal care for malpresentation of fetus, unspecified, not applicable or unspecified (principal); O69.81X0 Labor and delivery complicated by cord around neck, without compression, not applicable or unspecified; Z37.0 Single live birth; Z3A.38 38 weeks gestation of pregnancy; Z30.2 Encounter for sterilization; R50.82 Postprocedural fever; F41.9 Anxiety disorder, unspecified
CPT/HCPCS: 36415; 59514; 64488; 76937; 80053; 80307; 81001; 85025; 85027; 85461; 85610; 85730; 86592; 86850; 86900; 86901; 87086; 90384; 90715; 94799; 96372; 99140; G0378; G0379; J0290; J0456; J0690; J1200; J1580; J2274; J2300; J2371; J2405; J2590; J2790; L0625; A9270-GY; J2792

== ENCOUNTER 2024-09-04 09:27 | Day surgery (SDC) | payer OTHER ==
--- NOTE | 2024-09-04 08:48 | HP ---
HISTORY OF PRESENT ILLNESS: A 24-year-old patient with large subcutaneous mass lower back, increasing pain; desires excision. PAST MEDICAL HISTORY: History of bipolar schizophrenia, depression, history of headaches in the past. PAST SURGICAL HISTORY: Patient has had tubal in the past, lap pablito in the past, in the past. FAMILY HISTORY: Father, liver cirrhosis, multisystem organ failure. SOCIAL HISTORY: Every day smoker, occasional alcohol use. Does vape. MEDICATIONS: Venlafaxine, tramadol. ALLERGIES: No known drug allergies. REVIEW OF SYSTEMS: Twelve systems reviewed. No chest pain or palpitations. Other systems negative or noncontributory as above and per preadmission questionnaire. PHYSICAL EXAMINATION: GENERAL: Height 5 feet 4 inches. BMI 31.75. HEENT: Sclerae nonicteric. Extraocular movements intact. NECK: No JVD. CHEST: Equal excursion, nonlabored breathing. CARDIOVASCULAR: Regular rate and rhythm. ABDOMEN: Soft. EXTREMITIES: No cyanosis or edema. NEUROLOGIC: Alert and oriented, moving all extremities symmetrically. PSYCHIATRIC: Appropriate mood and affect. SKIN: Lower back subcutaneous mass, otherwise, normal. IMPRESSION: Enlarging painful lower back subcutaneous mass or lipoma. Recommend excision. Risks explained in detail including, but not limited to, bleeding, infection; risk of aches, pains; risk of hematoma or seroma formation; risk of infection possibly requiring packing; risk of burning or numbness; possibility that what we excise likely does not only recur but could get similar subcutaneous masses or lipomas adjacent to or elsewhere on the body. Patient also understands that procedure may fail to improve her aches and pains if they are related to anything else. She could have different aches and pains from the surgery itself, possible long-term effect. She understands and agrees with planned procedure. We will proceed with excisional biopsy of the lower back subcutaneous mass as an outpatient in the OR. Otherwise, continue medications for her bipolar depression, schizophrenia and headaches.
[2024-09-04] MEDS ORDERED: Lactated Ringers 1,000 ML IV ONE ×2 (10:15→13:41)
[2024-09-04] MEDS ORDERED: CEFAZOLIN 2 GM/100 ML NaCl 2 GM/100 ML IVPB IV ONE (10:19)
[2024-09-04 10:21] LABS: HCG URINE TEST NEGATIVE (NEGATIVE)
[2024-09-04 10:24] VITALS: RESP 16
[2024-09-04] MEDS: Lactated Ringers 1,000 ML IV ONE (10:38)
[2024-09-04] MEDS: CEFAZOLIN 2 GM/100 ML NaCl 2 GM/100 ML IVPB IV SCH (10:38)
[2024-09-04] MEDS ORDERED: Sensorcaine 0.25% 10 ML ONE (12:01)
[2024-09-04] MEDS ORDERED: Zofran 4 MG/2 ML VIAL ONE (12:23)
[2024-09-04] MEDS ORDERED: dexAMETHasone sodium phosphate ONE (12:23)
[2024-09-04] MEDS ORDERED: ROCURONIUM BROMIDE IV ONE (12:23)
[2024-09-04] MEDS ORDERED: propofoL IV ONE (12:23)
[2024-09-04] MEDS ORDERED: Versed 2 MG/2 ML Injection ONE (12:23)
[2024-09-04] MEDS ORDERED: DEXMEDETOMIDINE 80 MCG/20ML-NS IV ONE (12:23)
[2024-09-04] MEDS ORDERED: BRIDION 200MG/2ML IV ONE (12:23)
[2024-09-04] MEDS ORDERED: Xylocaine-Mpf 2% 5 Ml Vial ONE (12:23)
[2024-09-04] MEDS ORDERED: TORAdol 30 mg Injection ONE (12:23)
[2024-09-04] MEDS ORDERED: SUBLIMAZE 100 MCG/2 ML ONE ×2 (12:24→13:54)
[2024-09-04] MEDS ORDERED: Pre-Attached Lta Kit TP ONE (12:27)
[2024-09-04] MEDS ORDERED: Hydromorphone 1 mg/ml Injection ONE (13:47)
[2024-09-04 15:13] VITALS: BP 123/71; PULSE 64; TEMP 97.4; O2SAT 96
--- NOTE | 2024-09-05 13:10 | OP ---
SURGERY DATE/TIME: 09/04/2024 [id number] PREOPERATIVE DIAGNOSIS: Enlarging back subcutaneous mass. POSTOPERATIVE DIAGNOSIS: Enlarging back subcutaneous mass. PROCEDURE: Excisional biopsy of subcutaneous back lipoma (approximately 7.5 cm with margins). SURGEON: Tray Bardales MD ANESTHESIA: General. ESTIMATED BLOOD LOSS: Minimal. INDICATIONS: As above. Consent obtained. DESCRIPTION OF PROCEDURE AND FINDINGS: Patient was taken to the operating room. Site looked appropriate. Marked in the preop holding area. She was taken to the operating room. General anesthesia induced. She was prepped and draped in the sterile fashion. After official time-out, no disagreement in planned procedure. Transverse incision made. Dissection carried down circumferentially around this lipomatous density. It was carefully dissected off the deeper fascia. It measured about 7.5 cm in size. Passed off for pathology. One little bad credit collector controlled with 3-0 Vicryl suture ligature. At this point, the deep subcutaneous fascia was closed with running 3-0 Vicryl. Superficial subcu closed with interrupted 3-0 Vicryl. Skin closed with 4-0 Vicryl. Steri-Strips and sterile dressing applied. Then, 0.25% Marcaine local injected around the area. The patient tolerated the procedure well. There were no immediate complications. There was no family out in the waiting room to discussed findings with this time. We will see her back in the office next week. She is to avoid any excessive back bending or heavy lifting for 4 weeks or so.
== END 2024-09-04 15:20 | disposition home or self-care (01) ==
LOC: SDC 09:27
PROVIDERS: ATTEND Surgery
DX: D17.1 Benign lipomatous neoplasm of skin and subcutaneous tissue of trunk (principal)
CPT/HCPCS: 81025; J0690; J1100; J1171; J1885; J2250; J2405; J2704; J3010

== ENCOUNTER 2024-10-25 13:32 | Emergency (ER) | payer OTHER | END 2024-10-25 14:07 | disposition left against medical advice (07) | LOC: ED 13:32 | DX: Z53.21 Procedure and treatment not carried out due to patient leaving prior to being seen by health care provider (principal) | CPT/HCPCS: 99281 ==

== ENCOUNTER 2025-04-27 20:10 | Emergency (ER) | payer OTHER ==
--- NOTE | 2025-04-27 20:15 | ERPHSYRPT ---
- History of Present Illness Time Seen by Provider: 04/27/25 20:15 Source: patient, family Exam Limitations: no limitations Physician History: This is a 24-year-old white female patient who arrives with private vehicle accompanied by friend with the complaint of lightheadedness, headache and chest tightness that has been present for 2 days. Patient has been under significant amount of stress. Patient has a history of anxiety disorder, bipolar disorder, depression and schizophrenia. Nothing is helping relieve her headache. She states is not the worst headache she has ever had. However, nothing that has worked in the past for her migraine headaches is helping her. She has had no vomiting or diarrhea symptoms. Patient denies chest pain and she denies shortness of breath. Patient has no history of coronary artery disease. Timing/Duration: day(s) (2) Severity: mild Associated Symptoms: chest pain (Described as a substernal central nonradiating tightness), headaches Allergies/Adverse Reactions: codeine Adverse Reaction (Mild, Verified 04/27/25 20:17) Home Medications: Lumateperone Tosylate [Caplyta] 42 mg PO HS 04/27/25 [History] Hx Tetanus, Diphtheria Vaccination/Date Given: No Hx Influenza Vaccination/Date Given: No Hx Pneumococcal Vaccination/Date Given: No Travel Risk - International Travel Have you traveled outside of the country in past 3 weeks: No - Emerging Infectious Disease Are you exhibiting symptoms associated with any current EIDs: No Symptoms: Cough: New Onset Comment: Taking robitussin DM - Review of Systems Constitutional: No Symptoms Eyes: No Symptoms Ears, Nose, & Throat: No Symptoms Respiratory: No Symptoms Cardiac: Chest Pain (Described as a nonradiating substernal, central tightness) Abdominal/Gastrointestinal: No Symptoms Genitourinary Symptoms: No Symptoms Musculoskeletal: No Symptoms Skin: No Symptoms Neurological: Headache Psychological: No Symptoms Endocrine: No Symptoms Hematologic/Lymphatic: No Symptoms Immunological/Allergic: No Symptoms All Other Systems: Reviewed and Negative - Past Medical History Pertinent Past Medical History: Yes Neurological History: No Pertinent History ENT History: No Pertinent History Cardiac History: No Pertinent History Respiratory History: No Pertinent History Endocrine Medical History: No Pertinent History Musculoskeletal History: No Pertinent History GI Medical History: No Pertinent History History: No Pertinent History Psycho-Social History: Anxiety, Bipolar, Depression, Other Female Reproductive Disorders: No Pertinent History Other Medical History: schizophrenia - Past Surgical History Past Surgical History: Yes (choleycystectomy and WTE) Neuro Surgical History: No Pertinent History Cardiac: No Pertinent History Respiratory: No Pertinent History Gastrointestinal: Cholecystectomy Genitourinary: No Pertinent History Musculoskeletal: No Pertinent History Female Surgical History: No Pertinent History, Section, Tubal Ligation Other Surgical History: wisdom teeth, - Female History Hx Last Menstrual Period: 01/03/25 - Social History Smoking Status: Current every day smoker How long have you smoked: 10 Exposure to second hand smoke: No Drug Use: none - Social Determinants of Health Will the patient participate in the screening: Declined to provide Do you worry about a steady place to live?: No In the past 12 months,have you had to go without utilities?: No Transportation Issues: No Has anyone in your support network made you feel unsafe?: No Have you or anyone in your house had to go w/o enough food: No - Nursing Vital Signs Nursing Vital Signs: Initial Vital Signs Temperature 97.9 F 04/27/25 20:17 Pulse Rate 72 04/27/25 20:17 Respiratory Rate 18 04/27/25 20:17 Blood Pressure 116/89 04/27/25 20:17 O2 Sat by Pulse Oximetry 99 04/27/25 20:17 Pain Scale Pain Intensity 6 - Physical Exam General Appearance: no apparent distress, alert, anxiety Eye Exam: PERRL/EOMI, eyes nml inspection Ears, Nose, Throat Exam: normal ENT inspection, moist mucous membranes Neck Exam: normal inspection, non-tender, supple, full range of motion Respiratory Exam: normal breath sounds, lungs clear, airway intact, No chest tenderness, No respiratory distress Cardiovascular Exam: regular rate/rhythm, normal heart sounds, normal peripheral pulses Gastrointestinal/Abdomen Exam: soft, normal bowel sounds, No tenderness Pelvic Exam: not done Rectal Exam: not done Back Exam: normal inspection, normal range of motion, No CVA tenderness, No vertebral tenderness Extremity Exam: normal inspection, normal range of motion, pelvis stable Neurologic Exam: alert, oriented x 3, cooperative, weapons and tactics instructor II-XII nml as tested, sensation nml Skin Exam: normal color, warm, dry Lymphatic Exam: No adenopathy SpO2 Interpretation: normal O2 Delivery: Room Air - Course Nursing assessment & vital signs reviewed: Yes EKG Interpreted by Me: RATE (73), Sinus Rhythm, NORMAL AXIS, NORMAL INTERVALS, NORMAL QRS, Other (QTc is 414. No acute ischemia.) Ordered Tests: Active Orders 24 hr Category Date Time Status EKG-ER Only STAT Care 04/27/25 20:53 Active BMP Stat Lab 04/27/25 21:10 Completed MAGNESIUM Stat Lab 04/27/25 21:10 Completed TROPONIN Q4H Lab 04/27/25 21:10 Completed TROPONIN Q4H Lab 04/28/25 01:00 Ordered TROPONIN Q4H Lab 04/28/25 05:00 Ordered Medication Summary Discontinued Medications Generic Name Dose Route Start Last Admin Trade Name Freq PRN Reason Stop Dose Admin Hydrocodone Bitart/Acetaminophen 1 tab 04/27/25 20:52 04/27/25 21:07 Hydrocodone/Apap 5/325 1 Tab Tablet PO 04/27/25 20:53 1 tab STAT ONE Administration Hydrocodone Bitart/Acetaminophen Confirm 04/27/25 21:03 Hydrocodone/Apap 5/325 1 Tab Tablet Administered 04/27/25 21:04 Dose 1 tab .ROUTE .STK-MED ONE Diphenhydramine HCl 25 mg 04/27/25 20:52 04/27/25 21:07 Diphenhydramine Hcl 50 Mg/Ml Vial IM 04/27/25 20:53 25 mg STAT ONE Administration Diphenhydramine HCl Confirm 04/27/25 21:03 Diphenhydramine Hcl 50 Mg/Ml Vial Administered 04/27/25 21:04 Dose 50 mg .ROUTE .STK-MED ONE Lab/Rad Data: Laboratory Result Diagrams 04/27/25 21:10 Laboratory Results 04/27/25 04/27/25 Range/Units 21:10 21:10 Sodium 139 (135-145) mmol/L Potassium 3.4 L (3.5-5.1) mmol/L Chloride 108 H (98-107) mmol/L Carbon Dioxide 23 (22-30) mmol/L Anion Gap 11.2 (5-15) MEQ/L BUN 16 (7-17) mg/dL Creatinine 0.67 (0.52-1.04) mg/dL Estimated GFR 124.3 ML/MIN Glucose 92 (74-106) mg/dL Calcium 8.8 (8.4-10.2) mg/dL Magnesium 2.2 (1.6-2.3) mg/dL Troponin I < 0.012 (0.000-0.033) ng/mL - Progress Progress: improved, re-examined Progress Note: 04/27/25 21:21 My medical decision making and the assignment of moderate complexity of this patient's medical issue today is based on review of the patient's past medical history, review the patient's medication list, reviewed patient drug allergy list, history present illness and physical findings on examination. The workup in this patient includes BMP, magnesium level, troponin level, EKG. We will also provide the patient with Benadryl and [place] 5/325. Differential diagnosis includes but is not limited to myocardial infarction, arrhythmia, electrolyte abnormality, anxiety/stress, musculoskeletal pain 04/27/25 21:49 I interpreted the patient's laboratory data results. Based on laboratory data results there are no acute, emergent medical issues. The patient has no history of coronary artery disease. She has a low heart score (less than 4) Counseled pt/family regarding: lab results, diagnosis, need for follow-up Medical Desision Making - Independent Historian Additional History obtained from: Relative/friend - Diagnostic Testing Diagnostic test were ordered, analyzed, and reviewed by me: Yes - Risk of complications Low Risk: Low risk of morbidity from additional dx testing or treatment - Departure Departure Disposition: Home Clinical Impression: Chest tightness, Anxiety in acute stress reaction, Headache Condition: Stable Critical Care Time: No Referrals: RAFAEL WELCH FNP [Primary Care Provider, UNKNOWN] - Follow up/PCP as directed Additional Instructions: Take all your medications as prescribed. Call your primary care provider on 04/30/2025, to make arrangements for a follow-up appointment for further evaluation management.
[2025-04-27 20:22] VITALS: RESP 18; TEMP 97.9
[2025-04-27] MEDS ORDERED: NORCO 5/325 MG ONE (21:03)
[2025-04-27] MEDS ORDERED: BENADRYL 50 MG/ML ONE (21:03)
[2025-04-27] MEDS: BENADRYL 50 MG/ML IM ONE (21:07)
[2025-04-27] MEDS: NORCO 5/325 MG PO ONE (21:07)
[2025-04-27 21:15] VITALS: O2SAT 99
[2025-04-27 21:29] LABS: Calcium 8.8 mg/dL (8.4-10.2); Carbon Dioxide 23.0 mmol/L (22-30); Creatinine 1 0.67 mg/dL (0.52-1.04); EST GLOMERULAR FILTRATION RATE 124.3 ML/MIN; Glucose 92.0 mg/dL (74-106); Potassium 3.4 mmol/L (3.5-5.1)
[2025-04-27 21:34] VITALS: BP 126/90; PULSE 71
== END 2025-04-27 22:00 | disposition home or self-care (01) ==
LOC: ED 20:10
DX: F41.1 Generalized anxiety disorder (principal); F43.0 Acute stress reaction; R07.9 Chest pain, unspecified; R51.9 Headache, unspecified; R42 Dizziness and giddiness; Z79.899 Other long term (current) drug therapy; Z72.0 Tobacco use